=== PATIENT | female | born 1960 ===

== ENCOUNTER 2025-03-05 16:36 | Inpatient (IN) | payer MEDICAID ==
[~2025-03-05] VITALS: Ht 152.4 cm; Wt 72.2 kg
--- NOTE | 2025-03-05 17:10 | ED.PDOC ---
GI ASSESSMENT HPI Comments 64-year-old female with a history of hypertension, diabetes, cerebral stenosis, CAD status post PTCA presenting complaining of diffuse abdominal pain, greatest in the lower abdomen, progressively worsening over the past 2 months. Patient states she came to the ER today because she could not no longer tolerate the pain, which she describes as pressure-like with associated migrating sharp pains. She denies any fever, nausea, vomiting, diarrhea, constipation or dysuria. States the pain is not associated with food intake. Chief Complaint: Abdominal Pain Time Seen by MD: 16:44 Allergies: Coded Allergies: NO KNOWN ALLERGIES (Unverified , 03/05/25) Mode of Arrival: Ambulatory Past Medical History PAST MEDICAL HISTORY: CAD, DM, HTN Past Medical History (Other): Cerebral stenosis Surgical History: Appendectomy, Hysterectomy, PTCA ASSISTED LIVING ASSOCIATE History: No Pertinent ASSISTED LIVING ASSOCIATE History Family History Family History: Reviewed,noncontributory to illness Social History Smoker: Non-Smoker Alcohol: Denies ETOH Use Drugs: Denies Drug Use Lives In: Home Integumetry: reports: rash All Other Systems: Reviewed and Negative (Comprehensive systems review obtained and negative except for what is stated in the HPI.) Physical Exam General Appearance: Mild Distress, Obese HEENT: Other (Pupils and face symmetric. Moist mucous membranes.) Neck: Full Range of Motion, Normal Inspection Respiratory: Lungs Clear, No Accessory Muscle Use, No Respiratory Distress, Normal Breath Sounds Cardiovascular: No Edema, No JVD, Regular Rate/Rhythm Breast Exam: Deferred Gastrointestinal: Diffuse, Distended (Mild), Soft, Tenderness Genitalia: Deferred Pelvic: Deferred Rectal: Deferred Extremities: Normal inspection, Normal range of motion, Non-tender, No pedal e jeannie Neurologic: Alert (Oriented x4), Normal Affect, Normal Mood, Other (Ambulatory) Cerebellar Function: NOT DONE Reflexes: NOT DONE Skin: Dry, Warm Lymphatic: NOT DONE Was a procedure done? Was a procedure done?: No GI differential Dx Differential Diagnosis: Bowel Obstruction, Constipation, Diverticular disease, Gastritis/PUD, Gastroenteritis, Inflammatory BD, Ischemic Bowel, Pancreatitis, UTI, Diabetes/ DKA, Food Poisoning, Bacterial, Viral, Impaction, Stress Ulcer, Other (Gastroparesis, among others) X-Ray, Labs, Meds, VS Vital Signs Date Time Temp Pulse Resp B/P (MAP) Pulse Ox O2 Delivery O2 Flow Rate FiO2 03/05/25 18:23 92 18 207/101 03/05/25 18:15 18 98 Room Air* 0 21 03/05/25 18:15 98.6 92 17 207/101 (136) 96 98.6 03/05/25 16:38 98.7 98 17 197/96 98 98.7 Lab Test 03/05/25 17:20 03/05/25 17:12 Range/Units Urine Color Light-yellow Yellow Urine Clarity Clear Clear Urine pH 5.5 5.0-9.0 Urine Specific [place] 1.034 1.001-1.035 Urine Protein 1+ H Negative Urine Ketones Negative Negative Urine Blood 1+ H Negative /uL Urine Nitrite Negative Negative Urine Bilirubin Negative Negative Urine Urobilinogen Normal Negative mg/dL Urine Leukocyte Esterase 2+ Negative /uL Urine RBC 9 0 - 4 /hpf Urine Microscopic WBC 10 H 0-5 /HPF Urine Squamous Epithelial Cells Few <5 /hpf Urine Bacteria Few H None Seen /hpf Urine Glucose 4+ H Normal mg/dL White Blood Count 10.6 4.4-10.8 10^3/uL Red Blood Count 5.42 H 4.0-5.20 10^6/uL Hemoglobin 17.2 H 12.2-16.2 g/dL Hematocrit 50.1 H 36.0-46.0 % Mean Corpuscular Volume 92.5 80.0-100.0 fL Mean Corpuscular Hemoglobin 31.8 28.0-32.0 pg Mean Corpuscular Hemoglobin Concent 34.3 32.0-36.0 g/dL Red Cell Distribution Width 13.4 11.8-14.3 % Platelet Count 277 140-450 10^3/uL Mean Platelet Volume 9.8 6.9-10.8 fL Neutrophils (%) (Auto) 65.9 37.0-80.0 % Lymphocytes (%) (Auto) 26.0 10.0-50.0 % Monocytes (%) (Auto) 6.6 0.0-12.0 % Eosinophils (%) (Auto) 1.0 0.0-7.0 % Basophils (%) (Auto) 0.5 0.0-2.0 % Neutrophils # (Auto) 7.0 1.6-8.6 10 ^3/uL Lymphocytes # (Auto) 2.8 0.4-5.4 10 ^3/uL Monocytes # (Auto) 0.7 0-1.3 10 ^3/uL Eosinophils # (Auto) 0.1 0-0.8 10 ^3/uL Basophils # (Auto) 0.1 0-0.2 10 ^3/uL Nucleated Red Blood Cells 0.1 % Sodium Level 136 136-145 mmol/L Potassium Level 4.5 3.5-5.1 mmol/L Chloride Level 99 98-107 mmol/L Carbon Dioxide Level 25 20-31 mmol/L Anion Gap 12 5-15 Blood Urea Nitrogen 12 9-23 mg/dL Creatinine 1.16 H 0.550-1.02 mg/dL Glomerular Filtration Rate Calc 52 >90 mL/min BUN/Creatinine Ratio 10.3 10.0-20.0 Serum Glucose 480 *H 74-106 mg/dL Lactic Acid Level 4.2 *H 0.4-2.0 mmol/L Calcium Level 9.7 8.7-10.4 mg/dL Total Bilirubin 0.5 0.2-1.0 mg/dL Aspartate Amino Transferase (AST) 21 13-40 U/L Alanine Aminotransferase (ALT) 18 7-40 U/L Alkaline Phosphatase 132 H 46-116 U/L Troponin I High Sensitivity 11 </=34 ng/L Total Protein 7.3 5.7-8.2 g/dL Albumin 4.6 3.2-4.8 g/dL Lipase 48 12-53 U/L Current Medications Medications (Trade) Dose Ordered Sig/Maco Route Start Time Stop Time Status Last Admin Sodium Chloride 1,000 ml @ 1,000 mls/hr Q1H ONCE IV 03/05/25 17:00 03/05/25 17:59 DC 03/05/25 18:23 Ondansetron HCl (Zofran) 4 mg ONCE ONCE IV 03/05/25 17:00 03/05/25 17:03 DC 03/05/25 18:22 Morphine Sulfate 4 mg ONCE ONCE IV 03/05/25 17:00 03/05/25 17:03 DC 03/05/25 18:23 Pantoprazole Sodium (Protonix) 40 mg ONCE ONCE IV 03/05/25 17:00 03/05/25 17:03 DC 03/05/25 18:21 PROCEDURE(s): ABPL - CT AB PEL WO CON-NO ORAL OR IV REASON: diffuse abd pain ORDER NUMBER(s): [id number], ACCESSION NUMBER(s): [id number] Exam: CT CT AB PEL WO CON-NO ORAL OR IV History: diffuse abd pain Comparison Study: None TECHNIQUE: Multidetector CT of the abdomen was performed from lung bases to pubic symphysis. Imaging was performed without IV contrast. Axial, coronal and sagittal multiplanar reformats were obtained from the axial data set by the technologist. Radiation Dose Information: CT Dose: CTDI volume is 6.2 mGy. Dose-length product is 306.83 mGy*cm FINDINGS: Evaluation of solid organs is limited due to lack of intravenous contrast use. Findings: Lung Bases: No acute or significant lung base finding. Normal heart size. No pleural or pericardial effusion. Liver: The liver is normal in size. No focal lesions. Gallbladder and Biliary Tree: Unremarkable Spleen: Unremarkable Pancreas: The pancreas is grossly normal in appearance. Adrenal Glands: Unremarkable Kidneys: Kidneys are grossly normal without hydronephrosis. Bilateral renal calcifications appear to be vascular. There is no hydronephrosis. Bladder: Grossly unremarkable for degree of distention. Bowel: The stomach is grossly normal in appearance. Small bowel is normal in caliber and distribution. Mucosal thickening is noted of the right and transverse colon correlate for possible signs and symptoms of the colitis. The appendix is not visualized; however, no secondary findings of acute appendicitis identified. Ascites: Absent Lymphadenopathy: No mesenteric, retroperitoneal or periportal lymphadenopathy. Abdominal Wall and Mesentery: Unremarkable. Vasculature: The visualized abdominal aorta is normal in size and caliber. Evaluation of abdominal and pelvic vessels is limited due to lack of intravenous contrast. Pelvic Organs: Unremarkable Musculoskeletal: No aggressive focal bony lesions, acute fractures or dislocation. Soft tissues: Unremarkable IMPRESSION: 1. Mucosal thickening of the right and transverse colon. Correlate clinically for signs and symptoms of colitis 2. Bilateral renal calculi without hydronephrosis. Both vascular and parenchymal calcifications are in the differential. Radiation optimization: All CT scans at this facility use at least one of these dose optimization techniques: automated exposure control mA and/or kV adjustment per patient size (includes targeted exams where dose is matched to clinical indication) or iterative reconstruction. X-Ray, Labs, Meds, VS Comment 64-year-old female with a history of hypertension, diabetes and CAD complaining of diffuse abdominal pain, greatest in the lower abdomen Vitals remarkable for BP 197/96 Exam remarkable for diffuse abdominal tenderness to palpation with mild distention Rhythm strip independently interpreted by me: Sinus rhythm, rate 88, no ectopy. CT abdomen and pelvis IMPRESSION: 1. Mucosal thickening of the right and transverse colon. Correlate clinically for signs and symptoms of colitis 2. Bilateral renal calculi without hydronephrosis. Both vascular and parenchymal calcifications are in the differential. CBC, CMP, lipase, troponin, UA reviewed and remarkable for creatinine 1.16, glucose 480, normal anion gap, lactate 4.2, UA abnormal consistent with UTI Patient treated with the following in the ED: 2 L 0.9 normal saline IV bolus, morphine 4 mg IV, Zofran 4 mg IV, Protonix 40 mg IV, Zosyn 4.5 g IV, vancomycin 1 g IV, regular insulin 6 units IV, hydralazine 5 mg IV On re-evaluation, pain has partially improved. Blood pressure still elevated. Plan is to admit the patient for IV antibiotics, blood glucose control and blood pressure control. Time of 1ST Reevaluation: 18:00 Reevaluation 1ST: Unchanged Patient Education/Counseling: Diagnosis, Treatment, Need For Follow Up Family Education/Counseling: No Family Present SEPSIS Sepsis Screen Date sepsis recognized/suspect: Mar 05, 2025 Time Sepsis recognized/suspect: 1637 Recent Procedure: No On Antibiotic Therapy: No Respiratory Rate >20: No Heart Rate >90: No Temp<36 C (96.8 F) or >38.3 C: No SBP <90 or MAP <65 mmHG: No New Acute Mental Status Change: No Is the patient on CPAP, BIPAP,: No Physician Orders Ct Ab Pel Wo Con-No Oral Or Iv (03/05/25 17:00) Blood Culture (03/05/25 17:00) Electrocardigram (03/05/25 17:00) Sodium Chloride 0.9% (03/05/25 18:45) Piperacillin-Tazo 4.5gm (Zosyn 4.5gm/100 (03/05/25 18:45) Vancomycin 1gm/250ml Kit (03/05/25 18:45) Insulin R (Human) (Insulin R) (03/05/25 18:45) Hydralazine Injection (Apresoline Inject (03/05/25 18:45) Vital Signs Date Time Temp Pulse Resp B/P (MAP) Pulse Ox O2 Delivery O2 Flow Rate FiO2 03/05/25 18:23 92 18 207/101 03/05/25 18:15 18 98 Room Air* 0 21 03/05/25 18:15 98.6 92 17 207/101 (136) 96 98.6 03/05/25 16:38 98.7 98 17 197/96 98 98.7 Laboratory Tests Test 03/05/25 17:12 Lactic Acid Level 4.2 mmol/L (0.4-2.0) *H White Blood Count 10.6 10^3/uL (4.4-10.8) Medications Medications Dose Ordered Sig/Maco Route Start Time Stop Time Status Last Admin Dose Admin Morphine Sulfate 4 mg ONCE ONCE IV 03/05/25 17:00 03/05/25 17:03 DC 03/05/25 18:23 Ondansetron HCl 4 mg ONCE ONCE IV 03/05/25 17:00 03/05/25 17:03 DC 03/05/25 18:22 Pantoprazole Sodium 40 mg ONCE ONCE IV 03/05/25 17:00 03/05/25 17:03 DC 03/05/25 18:21 Sodium Chloride 1,000 ml @ 1,000 mls/hr Q1H ONCE IV 03/05/25 17:00 03/05/25 17:59 DC 03/05/25 18:23 Reassessment Post Fluid SEPSIS FOCUS EXAM(REASSESSMENT Sepsis reassessment focused exam completed. Date: 03/05/25 Time 18:39 Departure 1 Departure Time of Disposition: 18:30 Impression: Primary Impression: Colitis Additional Impressions: UTI (urinary tract infection) Sepsis Hyperglycemia Hypertensive urgency Disposition: 09 ADMITTED INPATIENT Admit to: Tele Condition: Guarded Critical Care Note Critical Care Time?: Yes (45 min-critical care time only) Critical care comment: Critical care time including multiple bedside re-evaluations, review of lab and imaging studies, and discussion of the case with the admitting provider. Patient is high risk for metabolic and/or hemodynamic decompensation. Stability Stability form required: No Heart Score Heart Score: Heart Score Response (Comments) Value History N/A 0 EKG N/A 0 Age N/A 0 Risk Factors N/A 0 Troponin N/A 0 Total 0 AU NATHAN BOYLE MD Mar 05, 2025 17:10
[2025-03-05 17:49] LABS: Hematocrit 50.1 % (36.0-46.0); Hemoglobin 17.2 g/dL (12.2-16.2); Mean Corpuscular Hemoglobin 31.8 pg (28.0-32.0); Mean Corpuscular Volume 92.5 fL (80.0-100.0); Nucleated Red Blood Cells % 0.1 %
--- NOTE | 2025-03-05 17:54 | DVH ---
Exam: CT CT AB PEL WO CON-NO ORAL OR IV History: diffuse abd pain Comparison Study: None TECHNIQUE: Multidetector CT of the abdomen was performed from lung bases to pubic symphysis. Imaging was performed without IV contrast. Axial, coronal and sagittal multiplanar reformats were obtained fr om the axial data set by the technologist. Radiation Dose Information: CT Dose: CTDI volume is 6.2 mGy. Dose-length product is 306.83 mGy*cm FINDINGS: Evaluation of solid organs is limited due to lack of intravenous contrast use. Findings: Lung Bases: No acute or significant lung base finding. Normal heart size. No pleural or pericardial effusion. Liver: The liver is normal in size. No focal lesions. Gallbladder and Biliary Tree: Unremarkable Spleen: Unremarkable Pancreas: The pancreas is grossly normal in appearance. Adrenal Glands: Unremarkable Kidneys: Kidneys are grossly normal without hydronephrosis. Bilateral renal calcifications appear to be vascular. There is no hydronephrosis. Bladder: Grossly unremarkable for degree of distention. Bowel: The stomach is grossly normal in appearance. Small bowel is normal in caliber and distribution . Mucosal thickening is noted of the right and transverse colon correlate for possible signs and symp toms of the colitis. The appendix is not visualized; however, no secondary findings of acute appendi citis identified. Ascites: Absent Lymphadenopathy: No mesenteric, retroperitoneal or periportal lymphadenopathy. Abdominal Wall and Mesentery: Unremarkable. Vasculature: The visualized abdominal aorta is normal in size and caliber. Evaluation of abdominal a nd pelvic vessels is limited due to lack of intravenous contrast. Pelvic Organs: Unremarkable Musculoskeletal: No aggressive focal bony lesions, acute fractures or dislocation. Soft tissues: Unremarkable IMPRESSION: 1. Mucosal thickening of the right and transverse colon. Correlate clinically for signs and symptoms of colitis 2. Bilateral renal calculi without hydronephrosis. Both vascular and parenchymal calcifications are i n the differential. Radiation optimization: All CT scans at this facility use at least one of these dose optimization shane hniques: automated exposure control mA and/or kV adjustment per patient size (includes targeted exam s where dose is matched to clinical indication) or iterative reconstruction.
[2025-03-05 18:08] LABS: Alanine Aminotransferase 18 U/L (7-40); Albumin 4.6 g/dL (3.2-4.8); Anion Gap 12 (5-15); BUN/Creatinine Ratio 10.3 (10.0-20.0); Bilirubin, Total 0.5 mg/dL (0.2-1.0); Blood Urea Nitrogen 12 mg/dL (9-23); Calcium 9.7 mg/dL (8.7-10.4); Carbon Dioxide 25 mmol/L (20-31); Chloride 99 mmol/L (98-107); Lipase 48 U/L (12-53); Potassium 4.5 mmol/L (3.5-5.1); Total Protein 7.3 g/dL (5.7-8.2)
[2025-03-05 18:10] LABS: Alkaline Phosphatase 132 U/L (46-116); Sodium 136 mmol/L (136-145)
[2025-03-05 18:11] LABS: Glucose 480 mg/dL (74-106); Lactic Acid w/Reflex 4.2 mmol/L (0.4-2.0)
[2025-03-05 18:15] VITALS: RESP 18; O2SAT 98
[2025-03-05] MEDS: PANTOPRAZOLE 40 MG/10 ML VIAL INJ IV ONE (18:21)
[2025-03-05] MEDS: ONDANSETRON HCL 4 MG/2 ML VIAL IV ONE (18:22)
[2025-03-05 18:23] LABS: Urine Protein, UAD 1+ (Negative)
[2025-03-05] MEDS: MORPHINE SULFATE 4 MG/ML SYR/VIAL IV ONE (18:23)
[2025-03-05] MEDS: SODIUM CHLORIDE 0.9% 1,000 ML IV ONE ×2 (18:23→19:43)
[2025-03-05] MEDS: hydrALAZINE HCL 20 MG/ML VL IV ONE ×2 (19:08→23:13)
[2025-03-05] MEDS: InsuLIN REG 1unit/0.01ml Soln (100units/ml) IV ONE (19:42)
[2025-03-05] MEDS: PIPERACILLIN-TAZO 4.5GM 100 ML IV ONE (19:43)
[2025-03-05] MEDS: HYDROcodone-ACET 5/325MG TAB PO PRN (23:10)
[2025-03-05] MEDS: VANCOMYCIN 1GM/250ML KIT 250 ML IV ONE (23:13)
[2025-03-06] MEDS ORDERED: DEXTROSE (50%) 50ML SYRG IV PRN ×2 (00:45→15:45)
[2025-03-06] MEDS: INSULIN LANTUS (GLARGINE) 1 /0.01ml (100units/ml) SC SCH (00:59)
[2025-03-06] MEDS: hydrALAZINE HCL 20 MG/ML VL IV SCH ×2 (02:27→06:30)
[2025-03-06] MEDS ORDERED: TICA90TA PO (03:01)
[2025-03-06] MEDS ORDERED: ASPI-325 PO (03:01)
--- NOTE | 2025-03-06 03:03 | DVHHPRES ---
History of Present Illness Resident Creating Document: YUMIKO OSBORN RESIDENT History of Present Illness SHELLIE VAZQUEZ Is a 64-year-old female with past medical history of hypertension, type 2 diabetes mellitus, CAD status post PTCA 1 year ago, multiple CVAs 2 years ago, cerebral stenosis and skin cancer came to the ED with chief complaints of diffuse abdominal pain more in the lower right side which is 8/10 in intensity, sharp, stabbing, constant, no relieving or aggravating factors, and radiating to the back,. Patient denies any nausea, vomiting, diarrhea, constipation, blood in the stool, fever, chills, dysuria, hematuria. On arrival patient is hypertensive, urinalysis is positive for UTI. Patient also states having a yeast infection since [address] Abdomen shows Mucosal thickening of the right and transverse colon. Correlate clinically for signs and symptoms of colitis. Bilateral renal calculi without hydronephrosis. Patient denies any sick conta cts, recent travel. Past surgical history: surgery for cerebral stenosis, appendicectomy, hysterectomy, PTCA, Skin cancer Lazer therapy Family history: Reviewed noncontributory Personal history: smokes 4 cigarettes per day started 3 months ago, drinks occasionally, smokes weed 2 times a week Lives with: family PCP:Dr. Guevara Review of Systems Constitutional: No: Fever, Chills, Sweats, Weakness, Malaise, Other Eyes: No: Pain, Vision change, Conjunctivae inflammation, Eyelid inflammation, Other, Redness ENT: No: Ear pain, Ear discharge, Nose pain, Nose discharge, Nose congestion, Mouth pain, Mouth swelling, Throat pain, Throat swelling, Other Respiratory: No: Cough, Dry, Shortness of breath, SOB with excertion, Wheezing, Hemoptysis, Pleuritic Pain, Sputum, Wheezing, Other Cardiovascular: No: Chest Pain, Palpitations, Orthopnea, Paroxysmal Noc. Dyspnea, Edema, Lt Headedness, Other Gastrointestinal: Abdominal Pain; No: Nausea, Vomiting, Diarrhea, Constipation, Melena, Hematochezia, Other Genitourinary: No Dysuria, No Frequency, No Incontinence, No Hematuria, No Retention, No Other Musculoskeletal: No: other, neck pain, shoulder pain, arm pain, back pain, hand pain, leg pain, foot pain Skin: No: Rash, Lesions, Jaundice, Bruising, Other Neurological: No: Weakness, Numbness, Incoordination, Change in speech, Confusion, Seizures, Other Allergies: Coded Allergies: NO KNOWN ALLERGIES (Unverified , 03/05/25) Medications Current Medications Medications Dose Ordered Sig/Maco Route Start Time Stop Time Status Last Admin Dose Admin Acetaminophen/ Hydrocodone Bitart 1 tab Q4HP PRN PO 03/05/25 22:30 03/05/25 23:10 1 TAB Hydralazine HCl 10 mg Q4H IV 03/06/25 02:00 03/06/25 02:27 10 MG Ceftriaxone Sodium 50 ml @ 100 mls/hr DAILY@09 IV 03/06/25 09:00 Insulin Glargine 20 units HS SC 03/06/25 00:45 03/06/25 00:59 20 UNITS Diagnostic Test (Pha) 1 strip ACHS 03/06/25 07:00 Insulin Human Regular HS SC 03/06/25 22:00 Insulin Human Regular AC SC 03/06/25 07:00 Dextrose 50 ml UD PRN IV 03/06/25 00:45 Exam Vital Signs Vital Signs Date Time Temp Pulse Resp B/P (MAP) Pulse Ox O2 Delivery O2 Flow Rate FiO2 03/06/25 02:27 176/69 03/05/25 23:20 88 17 97 03/05/25 18:15 Room Air* 0 21 03/05/25 18:15 98.6 98.6 Exam General: Patient alert and oriented in person, place and time. Patient following commands. In moderate distress HEENT: Normocephalic, atraumatic, moist mucous membranes Respiratory/pulmonary: Clear lungs bilaterally, vesicular murmurs present in almost all lung quiroz, no associated crackles or wheezes. Cardiovascular: Normal heart sounds S1 and S2 with no associated murmurs Erythema under bilateral breasts Abdomen: Diffuse abdominal tenderness more on right lower quadrant. Erythema over suprapubic area Extremities: There is no peripheral edema present at the lower extremities. Peripheral Pulses: 3+ Radial (R). 3+ Radial (L). 3+ Dorsalis pedis (R). 3+ Dorsalis pedis(L) Skin: No rashes or pruritus, there is no sacral edema present at this time. Neurological: Intact cranial nerves with no focal neurologic deficits Psych, mood: Normal psych, mood Labs/Xrays Labs Test 03/05/25 19:34 03/05/25 19:01 03/05/25 17:20 03/05/25 17:12 Range/Units POC Glucose 487 *H 70-106 mg/dl Lactic Acid Level 3.2 *H 0.4-2.0 mmol/L Urine Color Light-yellow Yellow Urine Clarity Clear Clear Urine pH 5.5 5.0-9.0 Urine Specific [place] 1.034 1.001-1.035 Urine Protein 1+ H Negative Urine Ketones Negative Negative Urine Blood 1+ H Negative /uL Urine Nitrite Negative Negative Urine Bilirubin Negative Negative Urine Urobilinogen Normal Negative mg/dL Urine Leukocyte Esterase 2+ Negative /uL Urine RBC 9 0 - 4 /hpf Urine Microscopic WBC 10 H 0-5 /HPF Urine Squamous Epithelial Cells Few <5 /hpf Urine Bacteria Few H None Seen /hpf Urine Glucose 4+ H Normal mg/dL White Blood Count 10.6 4.4-10.8 10^3/uL Red Blood Count 5.42 H 4.0-5.20 10^6/uL Hemoglobin 17.2 H 12.2-16.2 g/dL Hematocrit 50.1 H 36.0-46.0 % Mean Corpuscular Volume 92.5 80.0-100.0 fL Mean Corpuscular Hemoglobin 31.8 28.0-32.0 pg Mean Corpuscular Hemoglobin Concent 34.3 32.0-36.0 g/dL Red Cell Distribution Width 13.4 11.8-14.3 % Platelet Count 277 140-450 10^3/uL Mean Platelet Volume 9.8 6.9-10.8 fL Neutrophils (%) (Auto) 65.9 37.0-80.0 % Lymphocytes (%) (Auto) 26.0 10.0-50.0 % Monocytes (%) (Auto) 6.6 0.0-12.0 % Eosinophils (%) (Auto) 1.0 0.0-7.0 % Basophils (%) (Auto) 0.5 0.0-2.0 % Neutrophils # (Auto) 7.0 1.6-8.6 10 ^3/uL Lymphocytes # (Auto) 2.8 0.4-5.4 10 ^3/uL Monocytes # (Auto) 0.7 0-1.3 10 ^3/uL Eosinophils # (Auto) 0.1 0-0.8 10 ^3/uL Basophils # (Auto) 0.1 0-0.2 10 ^3/uL Nucleated Red Blood Cells 0.1 % Sodium Level 136 136-145 mmol/L Potassium Level 4.5 3.5-5.1 mmol/L Chloride Level 99 98-107 mmol/L Carbon Dioxide Level 25 20-31 mmol/L Anion Gap 12 5-15 Blood Urea Nitrogen 12 9-23 mg/dL Creatinine 1.16 H 0.550-1.02 mg/dL Glomerular Filtration Rate Calc 52 >90 mL/min BUN/Creatinine Ratio 10.3 10.0-20.0 Serum Glucose 480 *H 74-106 mg/dL Hemoglobin A1c 12.0 H <5.7 % A1C Serum Osmolality 311 H 278-298 mOsm/kg Calcium Level 9.7 8.7-10.4 mg/dL Total Bilirubin 0.5 0.2-1.0 mg/dL Aspartate Amino Transferase (AST) 21 13-40 U/L Alanine Aminotransferase (ALT) 18 7-40 U/L Alkaline Phosphatase 132 H 46-116 U/L Troponin I High Sensitivity 11 </=34 ng/L Total Protein 7.3 5.7-8.2 g/dL Albumin 4.6 3.2-4.8 g/dL Lipase 48 12-53 U/L SEPSIS Sepsis Screen Date sepsis recognized/suspect: Mar 05, 2025 Time Sepsis recognized/suspect: 8 Recent Procedure: No On Antibiotic Therapy: No Respiratory Rate >20: No Heart Rate >90: No Temp<36 C (96.8 F) or >38.3 C: No SBP <90 or MAP <65 mmHG: No New Acute Mental Status Change: No Is the patient on CPAP, BIPAP,: No Physician Orders Admit (03/05/25 22:24) Allergies (03/05/25 22:24) Code Status (03/05/25 22:24) Hydrocodone-Acet 5/325mg Tab (Leivasy 32 (03/05/25 22:30) Complete Blood Count (03/06/25 04:00) Comprehensive Metabolic Panel (03/06/25 04:00) Condition: Serious (03/05/25 22:24) Bedrest With Bathroom Privileg (03/05/25 22:24) Oxygen By Nasal Cannula (03/05/25 22:24) Stat Ekg For Chest Pain (03/05/25 22:24) Notify Md Of Changes From Base (03/05/25 22:24) Nailer Operator For 24 Hours (03/05/25 22:24) Emergency Dysrhythmia Protocol (03/05/25 22:24) Rhythm Strips Once Every Shift (03/05/25 22:24) Hydralazine Injection (Apresoline Inject (03/06/25 02:00) Ceftriaxone 1gm/50ml D5w (Rocephin) (03/06/25 09:00) Insulin Lantus (Glargine) (Lantus) (03/06/25 00:45) Cardiac Diet-2gna,Lofat,Lochol (03/06/25 Breakfast) Glucose Blood (Accu-Chek Comfort Curve T (03/06/25 07:00) Insulin R (Human) (Insulin R) (03/06/25 22:00) Insulin R (Human) (Insulin R) (03/06/25 07:00) Dextrose 50% Syringe (03/06/25 00:45) Vital Signs Date Time Temp Pulse Resp B/P (MAP) Pulse Ox O2 Delivery O2 Flow Rate FiO2 03/06/25 02:27 176/69 03/05/25 23:20 88 17 186/74 (111) 97 03/05/25 23:13 186/74 03/05/25 23:13 186/74 03/05/25 19:08 217/128 03/05/25 19:03 92 16 217/128 Laboratory Tests Test 03/05/25 17:12 03/05/25 19:01 Lactic Acid Level 4.2 mmol/L (0.4-2.0) *H 3.2 mmol/L (0.4-2.0) *H White Blood Count 10.6 10^3/uL (4.4-10.8) Medications Medications Dose Ordered Sig/Maco Route Start Time Stop Time Status Last Admin Dose Admin Acetaminophen/ Hydrocodone Bitart 1 tab Q4HP PRN PO 03/05/25 22:30 03/05/25 23:10 1 TAB Ceftriaxone Sodium 50 ml @ 100 mls/hr ONCE ONCE IV 03/05/25 23:00 03/05/25 23:29 DC 03/06/25 01:24 100 MLS/HR Hydralazine HCl 5 mg ONCE ONCE IV 03/05/25 18:45 03/05/25 18:57 DC 03/05/25 19:08 5 MG Hydralazine HCl 10 mg ONCE ONCE IV 03/05/25 22:30 03/05/25 22:34 DC 03/05/25 23:13 10 MG Hydralazine HCl 10 mg Q4H IV 03/06/25 02:00 03/06/25 02:27 10 MG Insulin Glargine 20 units HS SC 03/06/25 00:45 03/06/25 00:59 20 UNITS Insulin Human Regular 6 units ONCE ONCE IV 03/05/25 18:45 03/05/25 18:57 DC 03/05/25 19:42 6 UNITS Morphine Sulfate 4 mg ONCE ONCE IV 03/05/25 17:00 03/05/25 17:03 DC 03/05/25 18:23 4 MG Nifedipine 60 mg ONCE ONCE PO 03/05/25 22:30 03/05/25 22:34 DC 03/05/25 23:13 60 MG Ondansetron HCl 4 mg ONCE ONCE IV 03/05/25 17:00 03/05/25 17:03 DC 03/05/25 18:22 4 MG Pantoprazole Sodium 40 mg ONCE ONCE IV 03/05/25 17:00 03/05/25 17:03 DC 03/05/25 18:21 40 MG Piperacillin Sod/ Tazobactam Sod 100 ml @ 100 mls/hr ONCE ONCE IV 03/05/25 18:45 03/05/25 19:44 DC 03/05/25 19:43 100 MLS/HR Sodium Chloride 1,000 ml @ 1,000 mls/hr Q1H ONCE IV 03/05/25 17:00 03/05/25 17:59 DC 03/05/25 18:23 1,000 MLS/HR Sodium Chloride 1,000 ml @ 1,000 mls/hr Q1H ONCE IV 03/05/25 18:45 03/05/25 19:44 DC 03/05/25 19:43 1,000 MLS/HR Vancomycin HCl 250 ml @ 250 mls/hr ONCE ONCE IV 03/05/25 19:45 03/05/25 20:44 DC 03/05/25 23:13 250 MLS/HR Assessment/Plan Assessment/Plan # Intractable abdominal pain possibly due to colitis # Transverse Colitis # Bilateral renal Caliculi - CT abdomen shows Mucosal thickening of the right and transverse colon. Correlate clinically for signs and symptoms of colitis, Bilateral renal calculi without hydronephrosis. - started on IV metronidazole 500 mg - Ordered stool occult blood, WBC, C.Diff - Recommenced Outpatient colonoscopy # acute complicated UTI - IV fluids - urinalysis positive - IV ceftriaxone given - Urine culture sent # lactic acidosis : 4.2 - Check lactic acid # hypertensive urgency/ emergency - hydralazine 10mg q.6 - nifedipine 60 mg - check blood pressure, slowly decrease # HHS # uncontrolled diabetes mellitus [id number] - Lantus 20 -moderate insulin sliding scale # DALE vs CKD 3a - Avoid Nsaids # yeast infection - Nystatin powder # history of CAD: Continue home meds # history of CVA: Continue home meds # history of Osteoarthritis # history of skin cancer - follow-up outpatient # polysubstance abuse disorder - patient counseled on cessation of smoking, marijuana use, alcohol use for 13 minutes PPI PPX: IV Famotidine 20 mg DVT PPX: not indicated Clear liquid diet Goals of care addressed with the patient for more than 37 minutes: Full code status Case discussed with Dr. Hitchcock , patient and nurse Plan discussed with: Patient, Other (RN) My Orders Orders - YUMIKO OSBORN RESIDENT Procedure Category Date Status Time Admit ADMIT 03/05/25 Transmitted 22:24 Allergies NANCY 03/05/25 In Process 22:24 Code Status CODE 03/05/25 Transmitted 22:24 Hydrocodone-Acet PHA 03/05/25 In Process 5/325mg Tab (Leivasy 22:30 Complete Blood Count LAB 03/06/25 Logged 04:00 Comprehensive LAB 03/06/25 Logged Metabolic Panel 04:00 Condition: Serious NANCY 03/05/25 In Process 22:24 Bedrest With Bathroom NANCY 03/05/25 In Process Privileg 22:24 Oxygen By Nasal RT 03/05/25 Transmitted Cannula 22:24 Stat Ekg For Chest NANCY 03/05/25 In Process Pain 22:24 Notify Md Of Changes NANCY 03/05/25 In Process From Base 22:24 Nailer Operator For NANCY 03/05/25 In Process 24 Hours 22:24 Emergency Dysrhythmia NANCY 03/05/25 In Process Protocol 22:24 Rhythm Strips Once NANCY 03/05/25 In Process Every Shift 22:24 Hydralazine Injection PHA 03/06/25 In Process (Apresoline Inject 02:00 Ceftriaxone 1gm/50ml PHA 03/06/25 In Process D5w (Rocephin) 09:00 Insulin Lantus PHA 03/06/25 In Process (Glargine) (Lantus) 00:45 Cardiac DIET 03/06/25 Transmitted Diet-2gna,Lofat,Lochol Breakfast Glucose Blood PHA 03/06/25 In Process (Accu-Chek Comfort 07:00 Insulin R (Human) PHA 03/06/25 In Process (Insulin R) 22:00 Insulin R (Human) PHA 03/06/25 In Process (Insulin R) 07:00 Dextrose 50% Syringe PHA 03/06/25 In Process 00:45 Date of Service: Mar 06, 2025 Billing Provider: FREDI HITCHCOCK MD Common Visit Codes: 41295-[id number] INP/OBS CARE (HIGH) Secondary Visit Codes: 13250-[id number] CARE PLAN 30 MINUTES YUMIKO OSBORN RESIDENT Mar 06, 2025 03:03
[2025-03-06] MEDS: LACTATED RINGER'S 1,000 ML IV SCH (04:15)
[2025-03-06] MEDS: NYSTATIN TOPICAL POWDER 15GM TOP ONE (04:15)
[2025-03-06] MEDS: ATORVASTATIN 20 MG TAB PO ONE (04:30)
[2025-03-06] MEDS: FAMOTIDINE (10MG/ML) 2ML VL IV ONE (04:30)
[2025-03-06] MEDS: LACTATED RINGER'S 500 ML IV ONE (06:17)
[2025-03-06] MEDS: ACCU-CHEK COMFORT CURVE STRIP VI SCH ×2 (07:00→17:07)
[2025-03-06 07:30] LABS: Hematocrit 45.9 % (36.0-46.0); Hemoglobin 15.7 g/dL (12.2-16.2); Mean Corpuscular Hemoglobin 31.4 pg (28.0-32.0); Mean Corpuscular Volume 92.1 fL (80.0-100.0); Nucleated Red Blood Cells % 0.0 %
[2025-03-06 07:49] LABS: Alanine Aminotransferase 14 U/L (7-40); Albumin 4.3 g/dL (3.2-4.8); Alkaline Phosphatase 103 U/L (46-116); Anion Gap 12 (5-15); BUN/Creatinine Ratio 6.8 (10.0-20.0); Bilirubin, Total 0.5 mg/dL (0.2-1.0); Calcium 8.9 mg/dL (8.7-10.4); Carbon Dioxide 21 mmol/L (20-31); Chloride 103 mmol/L (98-107); Potassium 3.6 mmol/L (3.5-5.1); Sodium 136 mmol/L (136-145); Total Protein 7.4 g/dL (5.7-8.2)
[2025-03-06 07:50] LABS: Blood Urea Nitrogen 9 mg/dL (9-23); Glucose 319 mg/dL (74-106); Lactic Acid w/Reflex 2.5 mmol/L (0.4-2.0)
--- NOTE | 2025-03-06 10:30 | ECG ---
[facility] Test Date: 2025-03-06 Test Time: 09:37:23 Pat Name: SHELLIE VAZQUEZ Department: ED Room: 0294T Gender: F Architect: yury : 1960 Requested By: NATHAN BOYLE Order Number: [id number] Reading MD: Elio Patel Measurements Intervals [place] Rate: 97 P: 76 ND: 144 QRS: 77 QRSD: 79 T: 65 QT: 359 QTc: 456 Interpretive Statements Fast sinus arrhythmia Anteroseptal infarct, old Electronically Signed On 03-08-2025 17:00:55 PDT by Elio Patel Please click the below link to view image of tracing.
[2025-03-06] MEDS: InsuLIN REG 1unit/0.01ml Soln (100units/ml) SC SCH (11:30)
--- NOTE | 2025-03-06 13:16 | DVHPNRES ---
Progress Note Objective vital signs Vital Sign Date Time Temp Pulse Resp B/P (MAP) Pulse Ox O2 Delivery O2 Flow Rate FiO2 03/06/25 09:37 97 03/06/25 08:10 Room Air* 0 21 03/06/25 08:09 98.3 17 139/52 (81) 96 98.3 medications Current Medications Medications Dose Ordered Sig/Maco Route Start Time Stop Time Status Last Admin Dose Admin Acetaminophen/ Hydrocodone Bitart 1 tab Q4HP PRN PO 03/05/25 22:30 03/06/25 11:17 1 TAB Ceftriaxone Sodium 50 ml @ 100 mls/hr DAILY@09 IV 03/06/25 09:00 Insulin Glargine 20 units HS SC 03/06/25 00:45 03/06/25 00:59 20 UNITS Diagnostic Test (Pha) 1 strip ACHS 03/06/25 07:00 Insulin Human Regular HS SC 03/06/25 22:00 Insulin Human Regular AC SC 03/06/25 07:00 03/06/25 13:07 15 UNITS Dextrose 50 ml UD PRN IV 03/06/25 00:45 Metronidazole 100 ml @ 100 mls/hr Q8HR IV 03/06/25 14:00 Hydralazine HCl 10 mg Q6H IV 03/06/25 06:00 03/06/25 06:30 10 MG Nystatin 1 applic BID TOP 03/06/25 10:00 Nifedipine 90 mg DAILY PO 03/06/25 10:00 Lactated Ringer's 1,000 ml @ 75 mls/hr [id number] IV 03/06/25 04:15 Lidocaine 1 patch DAILY TOP 03/06/25 10:00 Famotidine 20 mg DAILY IV 03/07/25 10:00 Aspirin 81 mg DAILY PO 03/06/25 10:00 Atorvastatin Calcium 40 mg HS PO 03/06/25 22:00 Tamsulosin HCl 0.4 mg QPM PO 03/06/25 18:00 Morphine Sulfate 2 mg Q4HPRN PRN IV 03/06/25 07:45 Enoxaparin Sodium 40 mg DAILY SC 03/07/25 10:00 Ticagrelor 90 mg BID PO 03/06/25 22:00 laboratory and microbiology Laboratory Tests 03/06/25 06:51 Test 03/06/25 06:51 Range/Units Serum Glucose 319 H 74-106 mg/dL NIRMAL MARS RESIDENT Mar 06, 2025 13:16
[2025-03-06] MEDS: NYSTATIN TOPICAL POWDER 15GM TOP SCH (13:30)
[2025-03-06] MEDS: ENOXAPARIN SOD 40 MG/0.4 ML SYRINGE SC ONE (13:31)
[2025-03-06] MEDS: TICAGRELOR 90 MG TAB PO ONE (13:31)
[2025-03-06] MEDS: TAMSULOSIN HYDROCHLORIDE 0.4 MG CAP PO ONE (13:31)
[2025-03-06] MEDS: LIDOCAINE 5% TOPICAL PATCH TOP SCH (13:32)
[2025-03-06] MEDS: ONDANSETRON HCL 4 MG/2 ML VIAL IV PRN (13:45)
[2025-03-06] MEDS: MORPHINE SULFATE INJ 2 MG/ml SYRG IV PRN (13:46)
[2025-03-06 14:30] VITALS: PULSE 112; RESP 15; O2SAT 98
[2025-03-06] MEDS: NALOXONE HCL 0.4 MG/ML VIAL IV ONE (15:15)
--- NOTE | 2025-03-06 15:26 | DVH ---
CLINICAL HISTORY: AMS TECHNIQUE: Helical scanning was performed of the head from the skull base to the vertex. Multiplanar reconstructions were performed. This exam was performed according to our departmental dose optimizat ion program. Up-to-date CT equipment and radiation dose reduction techniques are utilized as appropri ate. CTDI 54.8 DLP 177.7 COMPARISON: None FINDINGS: There is no evidence for acute intracranial hemorrhage, mass, mass effect, or extra-axial fluid colle ction. There is no hydrocephalus or midline shift. There is no effacement of the cerebral sulci and b lorenza subarachnoid cisterns. The barry-white matter differentiation is well maintained. THERE HAS BEEN RIGHT FRONTAL CRANIOTOMY. There are small old right frontal lobe infarct. There is A S mall age indeterminate left cerebellar infarct. The imaged paranasal sinuses are clear. IMPRESSION: NO ACUTE INTRACRANIAL ABNORMALITY SEEN. SMALL AGE INDETERMINATE LEFT CEREBELLAR INFARCT.
[2025-03-06] MEDS: PANTOPRAZOLE 40 MG/10 ML VIAL INJ IV SCH (15:30)
[2025-03-06] MEDS: KETOROLAC TROMETH 30 MG/ML 1ML VIAL IV PRN (15:31)
[2025-03-06 16:30] LABS: Alanine Aminotransferase 15 U/L (7-40); Albumin 4.4 g/dL (3.2-4.8); Alkaline Phosphatase 105 U/L (46-116); Anion Gap 14 (5-15); BUN/Creatinine Ratio 7.3 (10.0-20.0); Bilirubin, Total 0.6 mg/dL (0.2-1.0); Blood Urea Nitrogen 11 mg/dL (9-23); Calcium 9.2 mg/dL (8.7-10.4); Carbon Dioxide 20 mmol/L (20-31); Chloride 104 mmol/L (98-107); Glucose 358 mg/dL (74-106); Potassium 3.4 mmol/L (3.5-5.1); Sodium 138 mmol/L (136-145); Total Protein 7.5 g/dL (5.7-8.2)
[2025-03-06] MEDS: INSULIN DRIP 100 UNIT/100ML 100 ML IV SCH (16:51)
[2025-03-06 16:56] LABS: Base Excess -3.2 mmol/L (-2.0-3.0)
[2025-03-06] MEDS: INSULIN LANTUS (GLARGINE) 1 /0.01ml (100units/ml) SC ONE (17:06)
[2025-03-06] MEDS ORDERED: LEVALBUTEROL HCL 1.25 MG/3 ML NEB NEB SCH (18:00)
[2025-03-06] MEDS: TAMSULOSIN HYDROCHLORIDE 0.4 MG CAP PO SCH (18:00)
[2025-03-06] MEDS: POTASSIUM CHL 20MEQ/100ML 100 ML IV SCH (18:36)
[2025-03-06 18:45] VITALS: BP 195/89; PULSE 10; RESP 20; TEMP 98.3; O2SAT 99
--- NOTE | 2025-03-06 18:57 | DVH ---
CHEST RADIOGRAPH Indication: CENTRAL LINE PLACEMENT. Technique: Single frontal view of the chest was obtained Comparison: None FINDINGS: Lines and Tubes: RIGHT INTERNAL JUGULAR CATHETER IN PLACE. IT APPEARS TO BE IN THE RIGHT ATRIUM. Lungs: No focal consolidation. Pleura: No effusion. No pneumothorax. Cardiomediastinal contours: Unremarkable Bones: No acute osseous abnormality. IMPRESSION: 1. RIGHT INTERNAL JUGULAR CATHETER IN PLACE. IT APPEARS TO BE IN THE RIGHT ATRIUM.
--- NOTE | 2025-03-06 19:06 | DVHPNRES ---
Progress Note Date Seen: Mar 07, 2025 Resident Creating Document: MADISON GREGG RESIDENT Has the PT tested + for MRSA If YES, has PT been informed?: No Medical Necessity Reason Pt with a Central, PICC or Fol: No Subjective Review of Systems A 64-year-old female with past medical history of hypertension, type 2 diabetes mellitus, CAD status post PTCA 1 year ago, multiple CVAs 2 years ago, cerebral stenosis and skin cancer came to the ED with chief complaints of diffuse abdominal pain more in the lower right side which is 8/10 in intensity, sharp, stabbing, constant, no relieving or aggravating factors, and radiating to the back,. Patient denies any nausea, vomiting, diarrhea, constipation, blood in the stool, fever, chills, dysuria, hematuria. On arrival patient is hypertensive, urinalysis is positive for UTI. Patient also states having a yeast infection since [address] Abdomen shows Mucosal thickening of the right and transverse colon. Correlate clinically for signs and symptoms of colitis. Bilateral renal calculi without hydronephrosis. Patient denies any sick contacts, recent travel. Past surgical history: surgery for cerebral stenosis, appendicectomy, hysterectomy, PTCA, Skin cancer Laser therapy Family history: Reviewed noncontributory Personal history: smokes 4 cigarettes per day started 3 months ago, drinks occasionally, smokes weed 2 times a week Lives with: family PCP:Dr. Guevara 03/06/25: Today the patient continues to complain about abdominal pain, morphine 2 mg given and patient had an episode of unresponsiveness that resolved after narcan administration, also BPs was unable to control with regular antihypertensives, nicardipine drip started, acute stroke was ruled out with CT scan, insulin drip started due to uncontrolled blood sugars and new CT scan abdomen with contrast showed acute pancreatitis that can explained the severe abdominal pain Objective vital signs Vital Sign Date Time Temp Pulse Resp B/P (MAP) Pulse Ox O2 Delivery O2 Flow Rate FiO2 03/06/25 18:45 98.3 10 20 195/89 99 0.0 21 98.3 03/06/25 14:30 Room Air* medications Current Medications Medications Dose Ordered Sig/Maco Route Start Time Stop Time Status Last Admin Dose Admin Ceftriaxone Sodium 50 ml @ 100 mls/hr DAILY@09 IV 03/06/25 09:00 03/06/25 13:30 100 MLS/HR Diagnostic Test (Pha) 1 strip ACHS 03/06/25 07:00 03/06/25 17:07 1 STRIP Dextrose 50 ml UD PRN IV 03/06/25 00:45 Metronidazole 100 ml @ 100 mls/hr Q8HR IV 03/06/25 14:00 03/06/25 17:07 100 MLS/HR Nystatin 1 applic BID TOP 03/06/25 10:00 03/06/25 13:30 1 APPLIC Lidocaine 1 patch DAILY TOP 03/06/25 10:00 Famotidine 20 mg DAILY IV 03/07/25 10:00 Aspirin 81 mg DAILY PO 03/06/25 10:00 03/06/25 13:37 81 MG Atorvastatin Calcium 40 mg HS PO 03/06/25 22:00 Tamsulosin HCl 0.4 mg QPM PO 03/06/25 18:00 Enoxaparin Sodium 40 mg DAILY SC 03/07/25 10:00 Ticagrelor 90 mg BID PO 03/06/25 22:00 Nicardipine HCl 250 ml @ 50 mls/hr Q5H IV 03/06/25 15:15 Cancel Ketorolac Tromethamine 15 mg Q6HPRN PRN IV 03/06/25 15:30 03/11/25 15:29 03/06/25 15:31 15 MG Pantoprazole Sodium 40 mg BID IV 03/06/25 15:30 Insulin Human (Reg)/Sodium Chloride 100 ml @ 0.5 mls/hr Q24H IV 03/06/25 15:45 03/06/25 16:51 6 MLS/HR Diagnostic Test (Pha) 1 strip Q90MIN 03/06/25 16:30 03/06/25 18:28 1 STRIP Dextrose 50 ml PRN PRN IV 03/06/25 15:45 Insulin Glargine 15 units DAILY SC 03/07/25 10:00 Nicardipine/ Sodium Chloride 200 ml @ 50 mls/hr Q4H IV 03/06/25 17:15 03/06/25 16:00 50 MLS/HR Potassium Chloride 100 ml @ 50 mls/hr Q2H IV 03/06/25 17:45 03/06/25 21:44 03/06/25 18:36 50 MLS/HR Examination General: Patient alert and oriented in person, place and time. Patient following commands. In moderate distress, after narcan administration: before GCS 8 now GCS 14 HEENT: Normocephalic, atraumatic, moist mucous membranes Respiratory/pulmonary: Clear lungs bilaterally, vesicular murmurs present in almost all lung quiroz, no associated crackles or wheezes. Cardiovascular: Normal heart sounds S1 and S2 with no associated murmurs E rythema under bilateral breasts Abdomen: Diffuse abdominal tenderness more on right lower quadrant. Erythema over suprapubic area Extremities: There is no peripheral edema present at the lower extremities. Peripheral Pulses: 3+ Radial (R). 3+ Radial (L). 3+ Dorsalis pedis (R). 3+ Dorsalis pedis(L) Skin: No rashes or pruritus, there is no sacral edema present at this time. Neurological: Intact cranial nerves with no focal neurologic deficits Psych, mood: Normal psych, mood laboratory and microbiology Laboratory Tests 03/06/25 15:53 03/06/25 06:51 Test 03/06/25 15:53 Range/Units Serum Glucose 358 H 74-106 mg/dL Microbiology Date/Time Source Procedure Growth Status 03/05/25 17:12 Blood Blood Culture - Preliminary NO GROWTH AFTER 24 HOURS OF INCUBATION. Resulted Problem List/Assessment/Plan Problem List/Assessment/Plan Neurology: #Acute toxic/metabolic encephalopathy due to opioid overdose? #H/o stroke #H/o craniotomy #Acute stroke rule out Narcan given avoid opioids GCS improved after narcan Head CT scan: There is no evidence for acute intracranial hemorrhage, mass, mass effect, or extra-axial fluid collection. There is no hydrocephalus or midline shift. There is no effacement of the cerebral sulci and basal subarachnoid cisterns. The barry-white matter differentiation is well maintained. THERE HAS BEEN RIGHT FRONTAL CRANIOTOMY. There are small old right frontal lobe infarct. There is A Small age indeterminate left cerebellar infarct. The imaged paranasal sinuses are clear. NO ACUTE INTRACRANIAL ABNORMALITY SEEN. SMALL AGE INDETERMINATE LEFT CEREBELLAR INFARCT. Cardiology #Hypertensive emergency: organ failure kidney nicardipine drip #Coronary disease s/p PTCA Ticaglelor Respiratory: no oxygen requirement GI #Acute interstitial pancreatitis #Acute infectious colitis # Questionable mesenteric ischemia ICU status CT scan findings: 1. Acute interstitial pancreatitis. No fluid collection. Please note that the arteries of the abdomen are not well evaluated due to venous phase examination. There is high-grade stenosis suspected in the right renal artery origin. 3. Long segment mucosal thickening of the rectosigmoid colon may be due to underdistention. Colitis is not entirely excluded and should be correlated with patient's symptoms. 4. Nonobstructive bilateral nephrolithiasis. Hold on fluids due to hypertensive emergency: nicardipine drip NPO ceftriaxone + metronidazole #Hypertriglyceridemia 300s, unlikely to be the cause of the pancreatitis Normal gallbladder ultrasound Endocrinology #Uncontrolled diabetes mellitus insulin drip: maintain sugars below 180 above 140 no DKA, unlikely HHS #Euthyroid sick syndrome Renal #DALE due to hypertensive emergency, high-grade stenosis suspected in the right renal artery origin. nicardipin drip ARB or IECA will be consider for treatment #Complicated UTI ceftraxione IV Heme/onc Leucocytosis due to pancreatitis, SIRS, ID Ceftriaxone + metronidazole due to colitis and UTI? Lines RIJ Tripp Patient is DNR/ DNI Case discussed with Dr Devries Plan discussed with: Patient, Other (rn) My Orders My Orders Orders - MADISON GREGG RESIDENT Procedure Category Date Status Time Head Without Contrast CT 03/06/25 Resulted 14:51 Transfer Orders XFER 03/06/25 Transmitted 15:17 Ketorolac Injection PHA 03/06/25 In Process (Toradol Injection) 15:30 Npo (Nothing By DIET 03/06/25 Transmitted Mouth) Diet Dinner Strict Aspiration NANCY 03/06/25 In Process Precautions 15:22 Pantoprazole PHA 03/06/25 In Process (Protonix) 15:30 Insert Tripp Catheter NANCY 03/06/25 In Process 15:28 Insulin Drip 100 PHA 03/06/25 In Process Unit/100ml (Myxredlin 15:45 Glucose Blood PHA 03/06/25 In Process (Accu-Chek Comfort 16:30 D/C All Diabetic NANCY 03/06/25 In Process Medications 15:38 Insulin Drip Protocol NANCY 03/06/25 In Process 15:38 Dextrose 50% Syringe PHA 03/06/25 In Process 15:45 Insulin Lantus PHA 03/07/25 In Process (Glargine) (Lantus) 10:00 Abg W/ Co-Ox RT 03/06/25 Logged 15:38 Chest Portable XY 03/06/25 Resulted 16:37 Nicardipine Hcl In PHA 03/06/25 In Process Sodium Chlo (Cardene 17:15 Potassium Chl PHA 03/06/25 In Process 20meq/100ml 17:45 Stool Occult Blood LAB 03/06/25 Logged 17:50 Ct Ab Pelvis W Wo CT 03/06/25 Logged Con-Iv Only 17:50 Communication Order ORDERS 03/06/25 Transmitted 18:20 Date of Service: Mar 07, 2025 Billing Provider: MARCEL DEVRIES MD Common Visit Codes: [id number] CARE 30-74 MIN (crit care time 55 minutes) MADISON GREGG RESIDENT Mar 06, 2025 19:06 CM GRIGSBY RESIDENT Mar 09, 2025 00:12 MARCEL DEVRIES MD Mar 09, 2025 22:31
--- NOTE | 2025-03-06 19:13 | DVHNC2 ---
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 Indication: Other Room prepared for procedure: No [employer] performed hand hygien: No Maximal sterile barrier precau: Mask/Eye shield, Sterile gown, Cap, Sterlie gloves, Large sterlie drape Skin Preparation: Chlorhexidine gluconate, Providine iodine Skin preparation completely dr: No Insertion site: Right, Internal jugular Central line catheter type: Jto-cytzdnho-vah dialysis Number of lumens: 3 Central line exchanged over a: No Antiseptic ointment applied to: No Post Assessment: Chest X-Ray, No Pneumothorax Informed consent obtained: No Risks/benefits/alt described: No Date of Service: Mar 06, 2025 Billing Provider: MARCEL BILLY MD Common Visit Codes: PROCEDURE ONLY Procedure Codes: [id number] NON-TUNNEL CV CATH MADISON GREGG RESIDENT Mar 06, 2025 19:13
[2025-03-06 19:30] VITALS: PULSE 100; RESP 18; O2SAT 93
[2025-03-06] MEDS ORDERED: InsuLIN REG 1unit/0.01ml Soln (100units/ml) SC SCH (22:00)
[2025-03-06] MEDS: IOHEXOL 300 MG/ML 100ML BOTTLE IJ ONE (23:02)
[2025-03-06] MEDS: ATORVASTATIN 20 MG TAB PO SCH (23:17)
[2025-03-06] MEDS: TICAGRELOR 90 MG TAB PO SCH (23:17)
[2025-03-07] VITALS (28 sets, daily range): BP systolic 119–147; BP diastolic 42–71; PULSE 91–118; RESP 13–26; TEMP 97–98.4; O2SAT 91–96
[2025-03-07] MEDS ORDERED: DEXTROSE (50%) 50ML SYRG IV PRN (01:30)
--- NOTE | 2025-03-07 04:33 | DVH ---
Exam: CT CT AB PELVIS W WO CON-IV ONLY History: rule out bowel ischemia Comparison Study: None Contrast: Type of contrast: Omnipaque 300 Contrast injected: 85 mL Contrast wasted: 0 TECHNIQUE: CT scan of the abdomen pelvis was performed without and with intravenous contrast. Lopes l and sagittal reformatted images are submitted. Radiation Dose Information: CT Dose: CTDI volume is 11.39 mGy. Dose-length product is 1116.41 mGy*cm FINDINGS: Lung Bases: There is bilateral lower lobe atelectasis. Normal heart size. No pleural or pericardial effusion. Liver: The liver is normal in size. No focal lesions. Normal hepatic vascular enhancement. Gallbladder and Biliary Tree: The gallbladder is unremarkable. No biliary ductal dilatation. Spleen: Unremarkable Pancreas: There is moderate peripancreatic fat stranding and fluid, consistent with acute pancreatiti s. Adrenal Glands: Unremarkable Kidneys: Kidneys enhance symmetrically. There is nonobstructive right intrarenal calculus measuring 3 mm in the upper pole. There is a 5 mm interpolar left renal calculus without hydronephrosis. Bladder: Unremarkable. Bowel: The stomach is grossly normal in appearance. The small bowel is normal in caliber. There is l salma segment mucosal thickening of the rectosigmoid colon. There is no bowel obstruction. No findings to suggest acute appendicitis. Intraperitoneal cavity: No pneumoperitoneum. No ascites. Lymphadenopathy: No mesenteric, retroperitoneal or periportal lymphadenopathy. Abdominal Wall and Mesentery: Unremarkable. Vasculature: There are atherosclerotic calcifications in the abdominal aorta and its branches. Speci fically, heavy calcification of the right renal artery origin likely contributing to significant sten osis. Mild atherosclerotic calcifications in the left renal artery origin. The other branches of the abdominal aorta appear patent but evaluation is limited on this venous phase study. Pelvic Organs: Unremarkable Musculoskeletal: No aggressive focal bony lesions, acute fractures or dislocation. Intervertebral dis c degeneration at L5-S1. Soft tissues: Subcutaneous emphysema in the right lateral abdomen. Please correlate with any recent i njection. There are calcified granulomas in the bilateral buttocks. IMPRESSION: 1. Acute interstitial pancreatitis. No fluid collection. 2. Please note that the arteries of the abdomen are not well evaluated due to venous phase examinatio n. There is high-grade stenosis suspected in the right renal artery origin. 3. Long segment mucosal thickening of the rectosigmoid colon may be due to underdistention. Colitis i s not entirely excluded and should be correlated with patient's symptoms. 4. Nonobstructive bilateral nephrolithiasis. All CT scans at this medical facility are performed using dose modulation techniques as appropriate t o a performed exam including the following: Automated exposure control was utilized; adjustment of th e MA and/or KV according to patient size; and use of iterative reconstruction technique.
[2025-03-07] MEDS: ACCU-CHEK COMFORT CURVE STRIP VI SCH (06:10)
[2025-03-07] MEDS: InsuLIN REG 1unit/0.01ml Soln (100units/ml) SC SCH (06:20)
[2025-03-07 07:01] LABS: Alanine Aminotransferase 10 U/L (7-40); Albumin 3.7 g/dL (3.2-4.8); Alkaline Phosphatase 85 U/L (46-116); Anion Gap 11 (5-15); BUN/Creatinine Ratio 8.2 (10.0-20.0); Bilirubin, Total 0.8 mg/dL (0.2-1.0); Blood Urea Nitrogen 11 mg/dL (9-23); Hematocrit 39.9 % (36.0-46.0); Hemoglobin 13.6 g/dL (12.2-16.2); Magnesium 1.7 mg/dL (1.6-2.6); Mean Corpuscular Hemoglobin 31.3 pg (28.0-32.0); Mean Corpuscular Volume 92.1 fL (80.0-100.0); Nucleated Red Blood Cells % 0.1 %; Sodium 141 mmol/L (136-145); Total Protein 6.2 g/dL (5.7-8.2)
[2025-03-07 07:08] LABS: INR 1.08 (0.9-1.15); Partial Thromboplastin Time 29.5 SEC (24.5-34.5); Prothrombin Time 11.4 sec (9.3-11.8)
[2025-03-07 07:12] LABS: Calcium 8.7 mg/dL (8.7-10.4); Carbon Dioxide 20 mmol/L (20-31); Chloride 110 mmol/L (98-107); Glucose 233 mg/dL (74-106); Potassium 3.4 mmol/L (3.5-5.1)
[2025-03-07 07:24] LABS: Cholesterol 199 mg/dL (< 200)
[2025-03-07 07:50] LABS: HDL Cholesterol 26 mg/dL (40-59); Triglycerides 333 mg/dL (< 150)
--- NOTE | 2025-03-07 07:56 | DVH ---
INDICATION: rule out cholelithiasis, pancreatitis TECHNIQUE: Multiple real-time sonographic images were obtained of the right upper quadrant. COMPARISON: None FINDINGS: The liver demonstrates homogenous echotexture without focal mass lesions. The liver measure s 16 cm. There is no intrahepatic or extrahepatic ductal dilatation. The common duct measures 0.4 mm. The gallbladder is without evidence of stone or sludge. The gallbladder wall measures 0.3mm and is within normal limits. The right kidney measures 12 cm. The right kidney is normal in contour, size, and shape. There is no hydronephrosis. The pancreas is not well visualized due to overlying bowel gas. IMPRESSION: Echogenic right kidney with right perinephric fluid.
[2025-03-07] MEDS: FAMOTIDINE (10MG/ML) 2ML VL IV SCH (09:34)
[2025-03-07] MEDS: ENOXAPARIN SOD 40 MG/0.4 ML SYRINGE SC SCH (09:35)
[2025-03-07] MEDS ORDERED: INSULIN LANTUS (GLARGINE) 1 /0.01ml (100units/ml) SC SCH (10:00)
[2025-03-07] MEDS: MAGNESIUM SULFATE 1GM/100ML 100 ML IV ONE (14:45)
[2025-03-07] MEDS: POTASSIUM CHL 20MEQ/100ML 100 ML IV SCH (14:45)
--- NOTE | 2025-03-07 15:16 | DVH ---
INDICATION: R/O HIGH GRADE STENOSIS, htn crisis TECHNIQUE: Multiple real-time sonographic images of the kidneys and bladder were obtained. COMPARISON: None FINDINGS: Resistive indices elevated in the left renal artery measuring 0.9. Left renal artery mid el evated velocity. Questionable 1 cm left renal stone. IMPRESSION: 1. Possible left renal artery stenosis. Consider MR or CT angiography.
[2025-03-07 16:15] LABS: COVID19 ANTIGEN SOFIA FIA NEGATIVE (NEGATIVE)
[2025-03-07] MEDS: LACTATED RINGER'S 1,000 ML IV SCH (16:45)
[2025-03-07] MEDS: CARVEDILOL 3.125 MG TAB PO ONE (16:45)
--- NOTE | 2025-03-07 17:46 | DVH ---
CLINICAL HISTORY: hx of stroke, atherosclerosis TECHNIQUE: Bustamante-scale, color and duplex doppler imaging of the bilateral carotid systems was attempte d. COMPARISON: None Findings: Right carotid system: Could not be assessed to overlying bandage. Left carotid system: There is no plaque present in the left carotid system. The following flow velocities were obtained (Cm/sec). Left carotid System: ICA PSV: 8.7 Cm/sec ICA PDV: 21.9 Cm/sec ICA/CCA Ratio: .7 The common carotid and external carotid arteries are patent. There is antegrade flow in the left isabel tebral artery and external carotid artery. IMPRESSION: Right carotid system cannot be assessed due to overlying bandage. LESS THAN 50% LEFT ICA NARROWING. Estimation of carotid stenosis is based on velocity parameters that correlate the residual internal c arotid Diameter with that of the more distal vessel in accordance with the [place] symptomatic Carotid Endarterectomy trial (NASCET).
--- NOTE | 2025-03-07 19:21 | DVHPNRES ---
Progress Note Date Seen: Mar 07, 2025 Resident Creating Document: GABE GARRETT RESIDENT Has the PT tested + for MRSA If YES, has PT been informed?: No Medical Necessity Reason Pt with a Central, PICC or Fol: Yes The following are medically ne: Central Line Subjective Review of Systems Patient 64-year-old female with hypertension, type 2 diabetes mellitus on insulin Basaglar 38 units, CAD status post stent 1 year back, multiple CVAs who presented to the ER with a chief complaint of abdominal pain for the past 2 months, associated with bloating, the pain has been therefore 2 months as sharp, not related to exertion, not related to food or fasting, she has been experiencing vomiting for the past night but otherwise denies diarrhea or constipation. No fever or chills. He abdomen showed colitis, repeat CT with IV contrast showed bilateral kidney stones, interstitial pancreatitis, high-grade renal artery stenosis. CT head showed old small frontal lobe infarct, age indeterminate left cerebellar infarct. Patient A1c was 12. WBC count has been increasing to 18 from 10 on arrival. Patient had good appetite but severe abdominal pain. Not passing gas. Last bowel movement was 03/05. Patient seen and examined in ER, downgraded to telemetry, started clear liquid diet, started lactated ringer 75 cc/hour, started amlodipine and Coreg, we will up titrate to control blood pressure, DC nicardipine drip, consider CT angio after kidney function improves and if pain persists. Lactic acid has resolved. GI evaluation pending. DALE worsening. Lipase increased to 900 Objective vital signs Vital Sign Date Time Temp Pulse Resp B/P (MAP) Pulse Ox O2 Delivery O2 Flow Rate FiO2 03/07/25 18:00 98.0 96 27 160/65 (96) 92 98.0 03/07/25 15:55 Room Air* 0 21 Total Intake and Output 03/06/25 03/06/25 03/07/25 15:00 23:00 07:00 Intake Total 430.5 ml 400 ml Balance 430.5 ml 400 ml medications Current Medications Medications Dose Ordered Sig/Maco Route Start Time Stop Time Status Last Admin Dose Admin Ceftriaxone Sodium 50 ml @ 100 mls/hr DAILY@09 IV 03/06/25 09:00 03/07/25 09:36 100 MLS/HR Metronidazole 100 ml @ 100 mls/hr Q8HR IV 03/06/25 14:00 03/07/25 14:57 100 MLS/HR Nystatin 1 applic BID TOP 03/06/25 10:00 03/06/25 22:00 1 APPLIC Lidocaine 1 patch DAILY TOP 03/06/25 10:00 Aspirin 81 mg DAILY PO 03/06/25 10:00 03/07/25 10:44 81 MG Enoxaparin Sodium 40 mg DAILY SC 03/07/25 10:00 03/07/25 09:35 40 MG Ticagrelor 90 mg BID PO 03/06/25 22:00 03/07/25 09:36 90 MG Nicardipine HCl 250 ml @ 50 mls/hr Q5H IV 03/06/25 15:15 Cancel Pantoprazole Sodium 40 mg BID IV 03/06/25 15:30 03/07/25 09:35 40 MG Amlodipine Besylate 10 mg DAILY PO 03/08/25 10:00 Carvedilol 6.25 mg Q12HR PO 03/07/25 22:00 Insulin Glargine 20 units HS SC 03/07/25 22:00 Lactated Ringer's 1,000 ml @ 75 mls/hr [id number] IV 03/07/25 16:45 03/07/25 16:45 75 MLS/HR Examination Obese female patient lying in the bed, patient is hungry, well conversational General: Overweight, afebrile, palor, mucosae are moist Cardiovascular: Tachycardia but Regular S1 and S2. No murmurs, gallops or rubs. No JVD elevation. 1+ pitting pedal edema bilaterally Respiratory: Normal B/L air entry on room air. Clear lung sounds on auscultation Abdomen: Right lower quadrant and epigastric tenderness to palpation, hypoactive bowel sounds, no rebound tenderness, no organomegaly, no masses Genitourinary: Deferred MSK/skin: Mobilizes 4 limbs. Skin is dry and warm Neurological: No motor, no sensitive deficits, normal speech. Pupils are isocoric and reactive. Psych/Mental Status: A/Ox3 laboratory and microbiology Laboratory Tests 03/07/25 05:48 Test 03/07/25 05:48 Range/Units Serum Glucose 233 H 74-106 mg/dL Microbiology Date/Time Source Procedure Growth Status 03/06/25 07:03 Blood Blood Culture - Preliminary NO GROWTH AFTER 24 HOURS OF INCUBATION. Resulted 03/05/25 17:20 Voided Urine Urine Culture - Preliminary Resulted Labs and/or images reviewed: Labs reviewed by me, Image(s) reviewed by me Problem List/Assessment/Plan Problem List/Assessment/Plan NEURO: Acute toxic/metabolic encephalopathy due to opioid overdose? Old frontal lobe infarct Age indeterminate left cerebellar infarct Ruled out acute stroke CT scan confirms above Aspirin and Lipitor Unremarkable carotid Doppler CARDIOVASCULAR: Hypertensive emergency Rule out CHF CAD status post 1 MAMADOU 1 year back Uncontrolled hypertension Sinus tachycardia Hypertriglyceridemia Echocardiogram pending DC nicardipine drip Amlodipine 10 mg and Coreg 6.25 b.i.d. GASTROINTESTINAL: Acute interstitial pancreatitis Rule out ischemic colitis Sepsis secondary to Colitis likely etiology infectious Lactated ringer 75 cc Clear liquid diet IV ceftriaxone and metronidazole GI consultation Pending GENITOURINARY: Likely left Renal artery stenosis DALE likely contrast induced/NSAIDs Complicated Cystitis Bilateral renal calculi FENA pending IV fluids METABOLIC: Uncontrolled Diabetes mellitus type 2-HGB A1c 12 Lantus 20 mg HS daily Moderate ISS INFECTIOUS DISEASE: Sepsis secondary to infectious colitis Blood culture negative, urine culture [id number] Gram-positive [place] DIET: Clear liquids DVT prophylax: Lovenox 40 mg sc daily GI prophylaxis: Protonix twice daily Bowel regimen: None Code status: Full code LINES/DRAINS/ACCESS: IV access: Right CBC IJ 03/06 Last bowel movement: 03/05 DISPOSITION: Telemetry Patient's status discussed with patient's daughter at bedside which all questions have been answered Goals care discussed with patient, patient's daughter full code status Critical care time spent more than 69 minutes, including patient care, chart review, and updating the family. Excluding any procedures Case discussed with Dr. Guan Plan discussed with: Patient, Daughter (Bedside) My Orders My Orders Orders - GABE GARRETT RESIDENT Procedure Category Date Status Time Renal Artery Lmtd US 03/07/25 Resulted 13:56 Amlodipine Tablet PHA 03/08/25 In Process (Norvasc Tablet) 10:00 Carvedilol Tablet PHA 03/07/25 In Process (Coreg Tablet) 22:00 Carotid Duplx W Color US 03/07/25 Resulted DOP 16:32 Insulin Lantus PHA 03/07/25 In Process (Glargine) (Lantus) 22:00 * Gi Dvh Propagation Worker CONS 03/07/25 Transmitted 16:32 Lactated Ringer's PHA 03/07/25 In Process 16:45 Code Status CODE 03/07/25 Transmitted 19:05 Transfer Orders XFER 03/07/25 Transmitted 19:05 Date of Service: Mar 07, 2025 Billing Provider: MONIQUE GUAN MD Common Visit Codes: [id number] CARE 30-74 MIN GABE GARRETT RESIDENT Mar 07, 2025 19:21 MONIQUE GUAN MD Mar 08, 2025 12:56
[2025-03-07] MEDS ORDERED: CARVEDILOL 3.125 MG TAB PO SCH (22:00)
[2025-03-07] MEDS: CARVEDILOL 12.5 MG TAB PO SCH (22:24)
[2025-03-07] MEDS: INSULIN LANTUS (GLARGINE) 1 /0.01ml (100units/ml) SC SCH (22:32)
[2025-03-08] VITALS (8 sets, daily range): BP systolic 114–144; BP diastolic 62–77; PULSE 77–88; RESP 16–20; TEMP 97.2–98.9; O2SAT 94–99
[2025-03-08 05:35] LABS: Hematocrit 39.3 % (36.0-46.0); Hemoglobin 13.5 g/dL (12.2-16.2); Mean Corpuscular Hemoglobin 31.5 pg (28.0-32.0); Mean Corpuscular Volume 91.8 fL (80.0-100.0); Nucleated Red Blood Cells % 0.0 %
[2025-03-08 05:56] LABS: Albumin 3.4 g/dL (3.2-4.8); Alkaline Phosphatase 77 U/L (46-116); Anion Gap 9 (5-15); BUN/Creatinine Ratio 10.8 (10.0-20.0); Blood Urea Nitrogen 13 mg/dL (9-23); Carbon Dioxide 21 mmol/L (20-31); Magnesium 1.9 mg/dL (1.6-2.6); Sodium 141 mmol/L (136-145)
[2025-03-08 05:57] LABS: Bilirubin, Total 1.0 mg/dL (0.2-1.0)
[2025-03-08 06:07] LABS: Chloride 111 mmol/L (98-107); Glucose 125 mg/dL (74-106); Potassium 3.1 mmol/L (3.5-5.1)
[2025-03-08 06:08] LABS: Alanine Aminotransferase < 9 U/L (7-40); Calcium 8.2 mg/dL (8.7-10.4); Total Protein 5.7 g/dL (5.7-8.2)
[2025-03-08] MEDS: POTASSIUM CHL 20MEQ/100ML 100 ML IV SCH (08:33)
[2025-03-08] MEDS: HYDROcodone-ACET 5/325MG TAB PO ONE (09:00)
--- NOTE | 2025-03-08 10:36 | ECG ---
[facility] Test Date: 2025-03-08 Test Time: 10:14:49 Pat Name: SHELLIE VAZQUEZ Department: Room: 0294T A Gender: F Automated Access Systems Technician: CHERYL : 1960 Requested By: GABE GARRETT Order Number: [id number] Reading MD: Elio Patel Measurements Intervals Omega Rate: 86 P: 73 NC: 150 QRS: 59 QRSD: 74 T: 173 QT: 453 QTc: 542 Interpretive Statements Sinus rhythm Borderline low voltage, extremity leads Anteroseptal infarct, old Nonspecific T abnormalities, lateral leads Prolonged QT interval Electronically Signed On 03-08-2025 14:40:30 PDT by Elio Patel Please click the below link to view image of tracing.
--- NOTE | 2025-03-08 11:34 | DVH ---
Date: 03/08/2025 10:21 AM Examination: XY KUB ABDOMEN SINGLE VIEW History: hypoactive bowel sounds Comparison: US RENAL ARTERY LMTD on DOS: 03/07/25, CT CT AB PELVIS W WO CON-IV ONLY on DOS: 03/07/25, CT CT AB PEL WO CON-NO ORAL OR IV on DOS: 03/05/25 TECHNIQUE: Frontal views of the abdomen was obtained. FINDINGS: Diffusely dilated loops of small bowel measuring up to 3 cm. The lung bases are unremarkable. No acute osseous abnormality identified. IMPRESSION: Dilated loops of small bowel which could represent ileus or obstruction
--- NOTE | 2025-03-08 13:03 | DVHINCON2 ---
GI Consult Consult Note GI consult note Date of Consultation: 03/08/2025 Chief Complaint: Pancreatitis, bloating, abdominal pain, rule out ischemic bowel, high atherosclerotic Referring Physician: Dr. Tello H&P: 64-year-old female with past medical history of hypertension, diabetes, CAD status post stent one year ago on Brilinta and aspirin, multiple CVAs admitted with complains of right-sided abdominal pain which is radiating to her back. Patient says pain is getting worse. Had nausea and vomiting but at this time none. Denies fevers and chills. Last bowel movement 03/05/2025 on day two of admission denies melena or red blood in stool. Denies history of alcohol use. No colonoscopy in past Past Medical History: HTN, dm, CAD, CVA Past Surgical History: cerebral stenosis, appendicectomy, hysterectomy, PTCA, Skin cancer Lazer therapy Social History: smokes 4 cigarettes per day started 3 months ago, drinks occasionally, smokes weed 2 times a week Family History: Noncontributory Review of Systems: Constitutional: no fever, chill, weight loss HEENT: no eye pain, no hearing loss, no oral lesion, no scleral icterus Heart: no chest pain, no chest pressure Lung: no cough, no dyspnea with exertion Abdomen: see HPI Physical exam: General: NAD, AAOX3 Chest: lung quiroz clear to auscultation Heart: RRR, no murmur Abdomen: + right side abdominal tenderness to palpation, +BS Labs: Test 03/07/25 05:48 Range/Units Serum Glucose 233 H 74-106 mg/dL Microbiology Date/Time Source Procedure Growth Status 03/06/25 07:03 Blood Blood Culture - Preliminary NO GROWTH AFTER 24 HOURS OF INCUBATION. Resulted 03/05/25 17:20 Voided Urine Urine Culture - Preliminary Resulted Labs and/or images reviewed: Labs reviewed by me, Image(s) reviewed by me Imaging: CT abdomen pelvis 03/05/2025 IMPRESSION: 1. Mucosal thickening of the right and transverse colon. Correlate clinically for signs and symptoms of colitis 2. Bilateral renal calculi without hydronephrosis. Both vascular and parenchymal calcifications are in the differential. CT abdomen pelvis with p.o. and IV contrast 03/07/2025 IMPRESSION: 1. Acute interstitial pancreatitis. No fluid collection. 2. Please note that the arteries of the abdomen are not well evaluated due to venous phase examination. There is high-grade stenosis suspected in the right renal artery origin. 3. Long segment mucosal thickening of the rectosigmoid colon may be due to underdistention. Colitis is not entirely excluded and should be correlated with patient's symptoms. 4. Nonobstructive bilateral nephrolithiasis. Abdominal ultrasound IMPRESSION: Echogenic right kidney with right perinephric fluid. KUB IMPRESSION: Dilated loops of small bowel which could represent ileus or obstruction Assessment: Abdominal pain Pancreatitis Colitis Possible bowel obstruction Plan: Discussed with Dr. Parmar Stool for WBC, bacterial culture, O&P Continue IV antibiotics Small-bowel follow-through with Gastrografin Clear liquid diet We will continue to monitor patient Plan discussed with patient and RN Thank you for this consult Date of Service: Mar 08, 2025 Billing Provider: SHARI ANDINO Common Visit Codes: CONSULT ONLY Consultation Codes: [id number] CONSULT <60MIN SHARI ANDINO Mar 08, 2025 13:02
--- NOTE | 2025-03-08 18:42 | DVHPNRES ---
Progress Note Date Seen: Mar 08, 2025 Resident Creating Document: GABE GARRETT RESIDENT Has the PT tested + for MRSA If YES, has PT been informed?: No Medical Necessity Reason Pt with a Central, PICC or Fol: Yes The following are medically ne: Central Line Subjective Review of Systems Patient 64-year-old female with hypertension, type 2 diabetes mellitus on insulin Basaglar 38 units, CAD status post stent 1 year back, multiple CVAs who presented to the ER with a chief complaint of abdominal pain for the past 2 months, associated with bloating, the pain has been therefore 2 months as sharp, not related to exertion, not related to food or fasting, she has been experiencing vomiting for the past night but otherwise denies diarrhea or constipation. No fever or chills. He abdomen showed colitis, repeat CT with IV contrast showed bilateral kidney stones, interstitial pancreatitis, high-grade renal artery stenosis. CT head showed old small frontal lobe infarct, age indeterminate left cerebellar infarct. Patient A1c was 12. WBC count has been increasing to 18 from 10 on arrival. Patient had good appetite but severe abdominal pain. Not passing gas. Last bowel movement was 03/05. 03/07 - Patient seen and examined in ER, downgraded to telemetry, started clear liquid diet, started lactated ringer 75 cc/hour, started amlodipine and Coreg, we will up titrate to control blood pressure, DC nicardipine drip, consider CT angio after kidney function improves and if pain persists. Lactic acid has resolved. GI evaluation pending. DALE worsening. Lipase increased to 900 03/08-patient seen and examined, not passing gas or BM. GI recommended a small bowel series. KUB shows ileus versus obstruction. Objective vital signs Vital Sign Date Time Temp Pulse Resp B/P (MAP) Pulse Ox O2 Delivery O2 Flow Rate FiO2 03/08/25 16:51 97.5 81 16 124/71 (88) 94 97.5 03/08/25 08:00 Room Air* 0 21 Total Intake and Output 03/07/25 03/07/25 03/08/25 15:00 23:00 07:00 Intake Total 865 ml 100 ml Balance 865 ml 100 ml medications Current Medications Medications Dose Ordered Sig/Maco Route Start Time Stop Time Status Last Admin Dose Admin Ceftriaxone Sodium 50 ml @ 100 mls/hr DAILY@09 IV 03/06/25 09:00 03/08/25 08:37 100 MLS/HR Metronidazole 100 ml @ 100 mls/hr Q8HR IV 03/06/25 14:00 03/08/25 14:14 100 MLS/HR Nystatin 1 applic BID TOP 03/06/25 10:00 03/07/25 22:42 1 APPLIC Lidocaine 1 patch DAILY TOP 03/06/25 10:00 03/08/25 09:51 1 PATCH Aspirin 81 mg DAILY PO 03/06/25 10:00 03/08/25 09:49 81 MG Enoxaparin Sodium 40 mg DAILY SC 03/07/25 10:00 03/08/25 09:50 40 MG Ticagrelor 90 mg BID PO 03/06/25 22:00 03/08/25 09:50 90 MG Nicardipine HCl 250 ml @ 50 mls/hr Q5H IV 03/06/25 15:15 Cancel Pantoprazole Sodium 40 mg BID IV 03/06/25 15:30 03/08/25 10:03 40 MG Amlodipine Besylate 10 mg DAILY PO 03/08/25 10:00 03/08/25 09:50 10 MG Insulin Glargine 20 units HS SC 03/07/25 22:00 03/07/25 22:32 20 UNITS Lactated Ringer's 1,000 ml @ 75 mls/hr [id number] IV 03/07/25 16:45 03/08/25 05:29 75 MLS/HR Carvedilol 12.5 mg Q12HR PO 03/07/25 22:00 03/08/25 09:49 12.5 MG Acetaminophen 650 mg Q4HP PRN PO 03/07/25 19:30 Examination Obese female patient lying in the bed, patient is hungry, well conversational General: Overweight, afebrile, palor, mucosae are moist Cardiovascular: Tachycardia but Regular S1 and S2. No murmurs, gallops or rubs. No JVD elevation. 1+ pitting pedal edema bilaterally Respiratory: Normal B/L air entry on room air. Clear lung sounds on auscultation Abdomen: Right lower quadrant and epigastric tenderness to palpation, hypoactive bowel sounds, no rebound tenderness, no organomegaly, no masses Genitourinary: Deferred MSK/skin: Mobilizes 4 limbs. Skin is dry and warm Neurological: No motor, no sensitive deficits, normal speech. Pupils are isocoric and reactive. Psych/Mental Status: A/Ox3 laboratory and microbiology Laboratory Tests 03/08/25 04:52 Test 03/08/25 04:52 Range/Units Serum Glucose 125 H 74-106 mg/dL Microbiology Date/Time Source Procedure Growth Status 03/06/25 07:03 Blood Blood Culture - Preliminary NO GROWTH AFTER 48 HOURS OF INCUBATION. Resulted 03/05/25 17:20 Voided Urine Urine Culture - Final Complete Labs and/or images reviewed: Labs reviewed by me, Image(s) reviewed by me Problem List/Assessment/Plan Problem List/Assessment/Plan NEURO: Acute toxic/metabolic encephalopathy due to opioid overdose? 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 EKG shows nonspecific ST changes, no STEMI Echocardiogram pending GASTROINTESTINAL: Acute interstitial pancreatitis Rule out ischemic colitis Sepsis secondary to Colitis likely etiology infectious Lactated ringer 75 cc Clear liquid diet IV ceftriaxone and metronidazole GI consultation recommended a small bowel series with Gastrografin-stool studies pending Repeat lipase in a.m. pending GENITOURINARY: Likely left Renal artery stenosis DALE likely contrast induced/NSAIDs Complicated Cystitis Bilateral renal calculi Creatinine trending down, GFR improving IV fluids METABOLIC: Uncontrolled Diabetes mellitus type 2-HGB A1c 12 Lantus 20 mg HS daily Moderate ISS INFECTIOUS DISEASE: Sepsis secondary to infectious colitis Blood culture negative, urine culture [id number] Gram-positive [place] DIET: Clear liquids DVT prophylax: Lovenox 40 mg sc daily GI prophylaxis: Protonix twice daily Bowel regimen: None Code status: Full code LINES/DRAINS/ACCESS: IV access: Right CBC IJ 03/06 Last bowel movement: 03/05 DISPOSITION: Telemetry Patient's status discussed with patient's daughter at bedside which all questions have been answered Goals care discussed with patient, patient's daughter full code status Critical care time spent more than 48 minutes, including patient care, chart review, and updating the family. Excluding any procedures Case discussed with Dr. Guan Plan discussed with: Patient My Orders My Orders Orders - ALI,GABE RESIDENT Procedure Category Date Status Time Code Status CODE 03/07/25 Transmitted 19:05 Transfer Orders XFER 03/07/25 Transmitted 19:05 Acetaminophen Tablet PHA 03/07/25 In Process (Tylenol Tablet) 19:30 Carvedilol Tablet PHA 03/07/25 In Process (Coreg Tablet) 22:00 Electrocardigram EKG 03/08/25 Resulted 10:00 Urinalysis LAB 03/08/25 Logged 10:00 Kub Abdomen Single XY 03/08/25 Resulted View 10:00 Date of Service: Mar 08, 2025 Billing Provider: MONIQUE GUAN MD Common Visit Codes: [id number] CARE 30-74 MIN GABE GARRETT Mar 08, 2025 18:42 MONIQUE GUAN MD Mar 10, 2025 15:42
[2025-03-09] VITALS (8 sets, daily range): BP systolic 124–155; BP diastolic 68–82; PULSE 79–86; RESP 17–18; TEMP 98.3–99.3; O2SAT 95–98
[2025-03-09 07:38] LABS: Albumin 3.3 g/dL (3.2-4.8); Alkaline Phosphatase 75 U/L (46-116); Anion Gap 8 (5-15); BUN/Creatinine Ratio 11.3 (10.0-20.0); Bilirubin, Total 0.8 mg/dL (0.2-1.0); Blood Urea Nitrogen 12 mg/dL (9-23); Carbon Dioxide 23 mmol/L (20-31); Glucose 86 mg/dL (74-106); Lipase 42 U/L (12-53); Sodium 139 mmol/L (136-145)
[2025-03-09 07:40] LABS: Hematocrit 38.4 % (36.0-46.0); Hemoglobin 13.3 g/dL (12.2-16.2); Mean Corpuscular Hemoglobin 31.8 pg (28.0-32.0); Mean Corpuscular Volume 92.0 fL (80.0-100.0); Nucleated Red Blood Cells % 0.0 %
[2025-03-09 07:44] LABS: Alanine Aminotransferase < 9 U/L (7-40); Calcium 7.8 mg/dL (8.7-10.4); Chloride 108 mmol/L (98-107); Potassium 3.1 mmol/L (3.5-5.1); Total Protein 5.7 g/dL (5.7-8.2)
[2025-03-09] MEDS: GASTROGRAFIN 120 ML SOL ONE (09:43)
--- NOTE | 2025-03-09 13:24 | DVHSR ---
APPROVED REPORT EXAM: Two-dimensional and M-mode echocardiogram with Doppler and color Doppler. Blood Pressure: 134/72 mmHg INDICATION Elevated tropes, hypertensive emergency RISK FACTORS Height: 60, Weight: 151 DIMENSIONS LVDd (3.8-5.7cm)LA (2D)3.9 (1.9-4.0cm)Aortic Root3.1 (2.0-3.7cm) LVDs (2.5-4.0cm)LA (MM) (1.9-4.0cm)Aortic Cusp Exc1.7 (1.5-2.0cm) EF (%) 66.0 (55-70%)Rt. Atrium3.9 (1.9-4.0cm)Asc. Aorta cm Mitral Valve MitralMitral Stenosis E wave0.89m/sMV Mean GR.mmHg A wave1.01m/sMV Peak GR.46mmHg E/A ratio0.92D MVAcm2 DECEL [id number] 1/2 [id number] IVRTmsDop MVA4.89cm2 Aortic Valve Aortic ValveAortic Stenosis V10.92m/Lisa Mean GR.3mmHg V21.20m/Lisa Peak GR.6mmHg LVOT Diameter2.2 (1.8-2.4cm)Doppler AVA2.91cm2 Pulmonic Valve V20.89m/s Conclusion lvef 65% normal rv fundction left atrium enlarged no severe valve abnormalities noted
--- NOTE | 2025-03-09 13:51 | DVH ---
Procedure: XY SMALL BOWEL SERIES-W GASTROGRA Exam Date: 03/09/2025 01:17 PM Reason for study/Clinical History: SBO versus ileus Comparison Study: None Technique: Single contrast small bowel series performed. Findings: Initial mechanical facilities technician view of the abdomen and pelvis appears demonstrates no acute process. Contrast is identified within the colon by 1 h. This represents a normal small bowel transit time. Small bowel loops are normal in size. Normal mucosal pattern. No evidence of small bowel obstructi on, stricture, or mucosal abnormality. The terminal ileum is well visualized and is unremarkable. IMPRESSION: Normal small bowel series. END IMPRESSION:
[2025-03-09] MEDS: POTASSIUM CHL 20MEQ/100ML 100 ML IV SCH (14:43)
--- NOTE | 2025-03-09 18:09 | DVHPNRES ---
Progress Note Date Seen: Mar 09, 2025 Resident Creating Document: GABE GARRETT RESIDENT Has the PT tested + for MRSA If YES, has PT been informed?: No Medical Necessity Reason Pt with a Central, PICC or Fol: Yes The following are medically ne: Central Line Subjective Review of Systems Patient 64-year-old female with hypertension, type 2 diabetes mellitus on insulin Basaglar 38 units, CAD status post stent 1 year back, multiple CVAs who presented to the ER with a chief complaint of abdominal pain for the past 2 months, associated with bloating, the pain has been therefore 2 months as sharp, not related to exertion, not related to food or fasting, she has been experiencing vomiting for the past night but otherwise denies diarrhea or constipation. No fever or chills. He abdomen showed colitis, repeat CT with IV contrast showed bilateral kidney stones, interstitial pancreatitis, high-grade renal artery stenosis. CT head showed old small frontal lobe infarct, age indeterminate left cerebellar infarct. Patient A1c was 12. WBC count has been increasing to 18 from 10 on arrival. Patient had good appetite but severe abdominal pain. Not passing gas. Last bowel movement was 03/05. 03/07 - Patient seen and examined in ER, downgraded to telemetry, started clear liquid diet, started lactated ringer 75 cc/hour, started amlodipine and Coreg, we will up titrate to control blood pressure, DC nicardipine drip, consider CT angio after kidney function improves and if pain persists. Lactic acid has resolved. GI evaluation pending. DALE worsening. Lipase increased to 900 03/08-patient seen and examined, not passing gas or BM. GI recommended a small bowel series. KUB shows ileus versus obstruction. 03/09 - underwent gastrographin, no obstruction, 2 bowel movements, lipase wnl Objective vital signs Vital Sign Date Time Temp Pulse Resp B/P (MAP) Pulse Ox O2 Delivery O2 Flow Rate FiO2 03/09/25 16:48 85 155/74 03/09/25 16:30 98.3 17 96 98.3 03/09/25 08:00 Room Air* 0 21 Total Intake and Output 03/08/25 03/08/25 03/09/25 15:00 23:00 07:00 Intake Total 250 ml 200 ml 1000 ml Balance 250 ml 200 ml 1000 ml medications Current Medications Medications Dose Ordered Sig/Maco Route Start Time Stop Time Status Last Admin Dose Admin Ceftriaxone Sodium 50 ml @ 100 mls/hr DAILY@09 IV 03/06/25 09:00 03/09/25 11:45 100 MLS/HR Metronidazole 100 ml @ 100 mls/hr Q8HR IV 03/06/25 14:00 03/09/25 13:22 100 MLS/HR Nystatin 1 applic BID TOP 03/06/25 10:00 03/09/25 11:47 1 APPLIC Lidocaine 1 patch DAILY TOP 03/06/25 10:00 03/09/25 11:45 1 PATCH Aspirin 81 mg DAILY PO 03/06/25 10:00 03/09/25 11:47 81 MG Enoxaparin Sodium 40 mg DAILY SC 03/07/25 10:00 03/09/25 11:46 40 MG Ticagrelor 90 mg BID PO 03/06/25 22:00 03/09/25 11:51 90 MG Nicardipine HCl 250 ml @ 50 mls/hr Q5H IV 03/06/25 15:15 Cancel Pantoprazole Sodium 40 mg BID IV 03/06/25 15:30 03/09/25 11:46 40 MG Amlodipine Besylate 10 mg DAILY PO 03/08/25 10:00 03/09/25 11:50 10 MG Insulin Glargine 20 units HS SC 03/07/25 22:00 03/08/25 21:52 20 UNITS Lactated Ringer's 1,000 ml @ 75 mls/hr [id number] IV 03/07/25 16:45 03/08/25 21:55 75 MLS/HR Carvedilol 12.5 mg Q12HR PO 03/07/25 22:00 03/09/25 11:51 12.5 MG Acetaminophen 650 mg Q4HP PRN PO 03/07/25 19:30 Examination Obese female patient lying in the bed, patient is hungry, well conversational General: Overweight, afebrile, palor, mucosae are moist Cardiovascular: Tachycardia but Regular S1 and S2. No murmurs, gallops or rubs. No JVD elevation. 1+ pitting pedal edema bilaterally Respiratory: Normal B/L air entry on room air. Clear lung sounds on auscultation Abdomen: Right lower quadrant and epigastric tenderness to palpation, hypoactive bowel sounds, no rebound tenderness, no organomegaly, no masses Genitourinary: Deferred MSK/skin: Mobilizes 4 limbs. Skin is dry and warm Neurological: No motor, no sensitive deficits, normal speech. Pupils are isocoric and reactive. Psych/Mental Status: A/Ox3 laboratory and microbiology Laboratory Tests 03/09/25 06:19 Test 03/09/25 06:19 Range/Units Serum Glucose 86 74-106 mg/dL Microbiology Date/Time Source Procedure Growth Status 03/06/25 07:03 Blood Blood Culture - Preliminary NO GROWTH AFTER 72 HOURS OF INCUBATION. Resulted 03/05/25 17:20 Voided Urine Urine Culture - Final Complete Labs and/or images reviewed: Labs reviewed by me, Image(s) reviewed by me Problem List/Assessment/Plan Problem List/Assessment/Plan NEURO: Acute toxic/metabolic encephalopathy due to opioid overdose? 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 EKG shows nonspecific ST changes, no STEMI Echocardiogram lvef 65%, left atrium enlarged GASTROINTESTINAL: Acute interstitial pancreatitis Rule out ischemic colitis Sepsis secondary to Colitis likely etiology infectious Lactated ringer 75 cc Clear liquid diet IV ceftriaxone and metronidazole GI consultation recommended a small bowel series with Gastrografin-stool studies pending - SMALL BOWEL SERIES-W GASTROGRA Normal small bowel series. lipase - 48->970->42 GENITOURINARY: Likely left Renal artery stenosis DALE likely contrast induced/NSAIDs Complicated Cystitis Bilateral renal calculi Creatinine trending down, GFR improving IV fluids METABOLIC: Uncontrolled Diabetes mellitus type 2-HGB A1c 12 Lantus 20 mg HS daily Moderate ISS INFECTIOUS DISEASE: Sepsis secondary to infectious colitis Blood culture negative, urine culture [id number] Gram-positive [place] DIET: Clear liquids DVT prophylax: Lovenox 40 mg sc daily GI prophylaxis: Protonix twice daily Bowel regimen: None Code status: Full code LINES/DRAINS/ACCESS: IV access: Right CBC IJ 03/06 Last bowel movement: 03/09 DISPOSITION: Telemetry Patient's status discussed with patient's daughter at bedside which all questions have been answered Goals care discussed with patient, patient's daughter full code status Critical care time spent more than 55 minutes, including patient care, chart review, and updating the family. Excluding any procedures Case discussed with Dr. Ghosh Plan discussed with: Patient My Orders My Orders Orders - GABE GARRETT Procedure Category Date Status Time Stool Wbc LAB 03/08/25 Logged 18:29 Stool Bacterial EVELYN 03/08/25 Uncollected Culture 18:29 Ova & Parasite Exam EVELYN 03/08/25 Uncollected 18:29 Echo 2d Mode Cardiac US 03/09/25 Resulted DOP 18:42 Small Bowel Series-W XY 03/09/25 Resulted Gastrogra 09:45 Strict I & O NANCY 03/09/25 In Process 11:54 Dietary Evaluation Review Comments: Nutrition Recommendation: 1) Advance to [facility] 45gm + cardiac diet 2) Refer Broom Worker for diabetes education Expected Outcomes/Goals: To meet >75% estimated needs Fu 2-3 days GABE GARRETT RESIDENT Mar 09, 2025 18:09
[2025-03-09] MEDS: HYDROcodone-ACET 5/325MG TAB PO PRN (22:10)
[2025-03-09 23:35] LABS: Urine Amorphous Crystal FEW /hpf (None Seen); Urine Budding Yeast MODERATE /hpf (None Seen); Urine Protein, UAD Negative (Negative)
[2025-03-10] VITALS (7 sets, daily range): BP systolic 106–153; BP diastolic 63–85; PULSE 73–81; RESP 15–20; TEMP 98–99.3; O2SAT 97–99
--- NOTE | 2025-03-10 10:01 | DVHPN2 ---
Progress Note - Dictate Date Seen: Mar 09, 2025 Has the PT tested + for MRSA If YES, has PT been informed?: No Medical Necessity Reason Pt with a Central, PICC or Fol: Yes The following are medically ne: Central Line Subjective STILL WITH ABDOMINAL PAIN. DENIES NAUSEA. HE IS NOT PASSING GAS vital signs Vital Sign Date Time Temp Pulse Resp B/P (MAP) Pulse Ox O2 Delivery O2 Flow Rate FiO2 03/10/25 08:59 79 153/78 03/10/25 08:00 99.3 16 98 99.3 03/09/25 20:00 Room Air* 0 21 Total Intake and Output 03/09/25 03/09/25 03/10/25 15:00 23:00 07:00 Intake Total 250 ml 100 ml 100 ml Balance 250 ml 100 ml 100 ml medications Current Medications Medications Dose Ordered Sig/Maco Route Start Time Stop Time Status Last Admin Dose Admin Ceftriaxone Sodium 50 ml @ 100 mls/hr DAILY@09 IV 03/06/25 09:00 03/10/25 09:19 100 MLS/HR Metronidazole 100 ml @ 100 mls/hr Q8HR IV 03/06/25 14:00 03/10/25 05:56 100 MLS/HR Nystatin 1 applic BID TOP 03/06/25 10:00 03/10/25 09:01 1 APPLIC Lidocaine 1 patch DAILY TOP 03/06/25 10:00 03/10/25 09:00 1 PATCH Aspirin 81 mg DAILY PO 03/06/25 10:00 03/10/25 08:59 81 MG Enoxaparin Sodium 40 mg DAILY SC 03/07/25 10:00 03/10/25 09:00 40 MG Ticagrelor 90 mg BID PO 03/06/25 22:00 03/10/25 08:59 90 MG Nicardipine HCl 250 ml @ 50 mls/hr Q5H IV 03/06/25 15:15 Cancel Pantoprazole Sodium 40 mg BID IV 03/06/25 15:30 03/10/25 09:00 40 MG Amlodipine Besylate 10 mg DAILY PO 03/08/25 10:00 03/10/25 08:59 10 MG Insulin Glargine 20 units HS SC 03/07/25 22:00 03/09/25 22:11 20 UNITS Lactated Ringer's 1,000 ml @ 75 mls/hr [id number] IV 03/07/25 16:45 03/09/25 22:13 75 MLS/HR Carvedilol 12.5 mg Q12HR PO 03/07/25 22:00 03/10/25 08:59 12.5 MG Acetaminophen 650 mg Q4HP PRN PO 03/07/25 19:30 Acetaminophen/ Hydrocodone Bitart 1 tab Q4HPRN PRN PO 03/09/25 20:45 03/10/25 08:58 1 TAB laboratory and microbiology Laboratory Tests 03/09/25 06:19 Test 03/09/25 06:19 Range/Units Serum Glucose 86 74-106 mg/dL Problem List 1. LEUKOCYTOSIS 2. ABDOMINAL PAIN 3. ABNORMAL IMAGING GI TRACT 4. PANCREATITIS 5. SUSPECTED SMALL-BOWEL OBSTRUCTION, SMALL-BOWEL FOLLOW-THROUGH WAS NEGATIVE Assessment/Plan PATIENT'S SYMPTOMS LIKELY DUE TO PANCREATITIS, QUESTIONABLE RENAL ARTERY STENOSIS, SMALL-BOWEL FOLLOW-THROUGH NEGATIVE FOR OBSTRUCTION LEUKOCYTOSIS MAY BE SECONDARY TO PANCREATITIS VERSUS INFECTION PATIENT MAY ALSO HAVE ISCHEMIC COLITIS Problems(with codes): (1) Colitis (2) Sepsis (3) UTI (urinary tract infection) (4) Hypertensive urgency Prognosis 1. . CONTINUE CURRENT MEDICATIONS ANTIBIOTICS 2. HOLD OFF ON COLONOSCOPY AT THIS TIME 3. WE WILL FOLLOW 4. FOLLOW LABS 5. PAIN CONTROL 6. DIET TOLERATED 7. IF NO IMPROVEMENT CONSIDER COLONOSCOPY AND/OR SURGICAL CONSULTATION Dietary Evaluation Review Comments: Nutrition Recommendation: 1) Advance to [facility] 45gm + cardiac diet 2) Refer Clinical Team Lead for diabetes education Expected Outcomes/Goals: To meet >75% estimated needs Fu 2-3 days Plan discussed with: Patient CARLOS BURGESS MD Mar 10, 2025 10:01
[2025-03-10 11:15] LABS: Hematocrit 38.6 % (36.0-46.0); Hemoglobin 13.2 g/dL (12.2-16.2); Mean Corpuscular Hemoglobin 32.0 pg (28.0-32.0); Mean Corpuscular Volume 93.3 fL (80.0-100.0); Nucleated Red Blood Cells % 0.0 %
[2025-03-10 11:27] LABS: Chloride 106 mmol/L (98-107); Sodium 139 mmol/L (136-145)
[2025-03-10 11:28] LABS: Anion Gap 10 (5-15); Carbon Dioxide 23 mmol/L (20-31)
[2025-03-10 11:33] LABS: BUN/Creatinine Ratio 12.5 (10.0-20.0); Blood Urea Nitrogen 12 mg/dL (9-23)
[2025-03-10 11:47] LABS: Calcium 7.8 mg/dL (8.7-10.4); Glucose 157 mg/dL (74-106); Magnesium 1.6 mg/dL (1.6-2.6); Potassium 3.0 mmol/L (3.5-5.1)
--- NOTE | 2025-03-10 15:41 | DVHPN2 ---
Subjective The patient is seen and examined at bedside. No change overnight. Reviewed: Care Plan, H&P, Labs, Medications, Previous Orders, Radiology Changes from previous H/P or p: No Changes Eyes: No Pain, No Vision change, No Conjunctivae inflammation, No Eyelid inflammation, No Other, No Redness ENT: No Ear pain, No Ear discharge, No Nose pain, No Nose discharge, No Nose congestion, No Mouth pain, No Mouth swelling, No Throat pain, No Throat swelling, No Other Cardiovascular: No Chest Pain, No Palpitations, No Orthopnea, No Paroxysmal Noc. Dyspnea, No Edema, No Lt Headedness, No Other Respiratory: No Cough, No Dry, No Shortness of breath, No SOB with excertion, No Wheezing, No Hemoptysis, No Pleuritic Pain, No Sputum, No Other Gastrointestinal: No Nausea, No Vomiting; Abdominal Pain; No Diarrhea, No Constipation, No Melena, No Hematochezia, No Other Genitourinary: No Dysuria, No Frequency, No Incontinence, No Hematuria, No Retention, No Other Musculoskeletal: No other, No neck pain, No shoulder pain, No arm pain, No back pain, No hand pain, No leg pain, No foot pain Skin: No Rash, No Lesions, No Jaundice, No Bruising, No Other Objective Vitals Vital Signs Date Time Temp Pulse Resp B/P (MAP) Pulse Ox O2 Delivery O2 Flow Rate FiO2 03/10/25 12:10 98.8 74 17 106/63 (77) 97 98.8 03/10/25 08:00 Room Air* 0 21 Intake/Output Intake and Output 03/10/25 07:00 Intake Total 550 ml Balance 550 ml IV Total 550 ml General Appearance: Alert, Cooperative, No acute distress HEENT: Atraumatic, PERRLA, EOMI, Mucous membr. moist/pink Neck: Supple Lungs: Clear to auscultation, Normal air movement Cardiovascular: Regular rate, Normal S1, Normal S2, No murmurs, Gallops, Rubs Abdomen: Normal bowel sounds, Soft Neuro: Cranial nerves 3-12 NL Psych/Mental Status: Mental status NL Medications Current Medications Medications Dose Ordered Sig/Maco Route Start Time Stop Time Status Last Admin Dose Admin Ceftriaxone Sodium 50 ml @ 100 mls/hr DAILY@09 IV 03/06/25 09:00 03/10/25 09:19 100 MLS/HR Metronidazole 100 ml @ 100 mls/hr Q8HR IV 03/06/25 14:00 03/10/25 13:26 100 MLS/HR Nystatin 1 applic BID TOP 03/06/25 10:00 03/10/25 09:01 1 APPLIC Lidocaine 1 patch DAILY TOP 03/06/25 10:00 03/10/25 09:00 1 PATCH Aspirin 81 mg DAILY PO 03/06/25 10:00 03/10/25 08:59 81 MG Enoxaparin Sodium 40 mg DAILY SC 03/07/25 10:00 03/10/25 09:00 40 MG Ticagrelor 90 mg BID PO 03/06/25 22:00 03/10/25 08:59 90 MG Nicardipine HCl 250 ml @ 50 mls/hr Q5H IV 03/06/25 15:15 Cancel Pantoprazole Sodium 40 mg BID IV 03/06/25 15:30 03/10/25 09:00 40 MG Amlodipine Besylate 10 mg DAILY PO 03/08/25 10:00 03/10/25 08:59 10 MG Insulin Glargine 20 units HS SC 03/07/25 22:00 03/09/25 22:11 20 UNITS Lactated Ringer's 1,000 ml @ 75 mls/hr [id number] IV 03/07/25 16:45 03/09/25 22:13 75 MLS/HR Carvedilol 12.5 mg Q12HR PO 03/07/25 22:00 03/10/25 08:59 12.5 MG Acetaminophen 650 mg Q4HP PRN PO 03/07/25 19:30 Acetaminophen/ Hydrocodone Bitart 1 tab Q4HPRN PRN PO 03/09/25 20:45 03/10/25 08:58 1 TAB Laboratory Results Laboratory Tests 03/10/25 10:40 Chemistry Test 03/10/25 10:40 Calcium Level 7.8 mg/dL (8.7-10.4) L Magnesium Level 1.6 mg/dL (1.6-2.6) Urinalysis Test 03/09/25 23:10 Urine Color Yellow (Yellow) Urine Clarity Turbid (Clear) H Urine pH 6.0 (5.0-9.0) Urine Specific [place] 1.012 (1.001-1.035) Urine Protein Negative (Negative) Urine Ketones Trace (Negative) Urine Blood 1+ /uL (Negative) H Urine Nitrite Negative (Negative) Urine Bilirubin 1+ (Negative) H Urine Urobilinogen Normal mg/dL (Negative) Urine Leukocyte Esterase Trace /uL (Negative) Urine RBC 41 /hpf (0 - 4) Urine Microscopic WBC 1 /HPF (0-5) Urine Squamous Epithelial Cells Few /hpf (<5) Urine Amorphous Crystals Few /hpf (None Seen) Urine Bacteria Few /hpf (None Seen) H Urine Mucus Few (None Seen) Urine Yeast (Budding) Moderate /hpf (None Seen) Urine Glucose 4+ mg/dL (Normal) H Microbiology Microbiology Date/Time Source Procedure Growth Status 03/06/25 07:03 Blood Blood Culture - Preliminary NO GROWTH AFTER 72 HOURS OF INCUBATION. Resulted 03/05/25 17:20 Voided Urine Urine Culture - Final Complete Assessment/Plan Assessment/Plan NEURO: Acute toxic/metabolic encephalopathy due to opioid overdose? 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 EKG shows nonspecific ST changes, no STEMI Echocardiogram lvef 65%, left atrium enlarged GASTROINTESTINAL: Acute interstitial pancreatitis Rule out ischemic colitis Sepsis secondary to Colitis likely etiology infectious Lactated ringer 75 cc Clear liquid diet IV ceftriaxone and metronidazole GI consultation recommended a small bowel series with Gastrografin-stool studies pending - SMALL BOWEL SERIES-W GASTROGRA Normal small bowel series. lipase - 48->970->42 GENITOURINARY: Likely left Renal artery stenosis DALE likely contrast induced/NSAIDs Complicated Cystitis Bilateral renal calculi Creatinine trending down, GFR improving IV fluids METABOLIC: Uncontrolled Diabetes mellitus type 2-HGB A1c 12 Lantus 20 mg HS daily Moderate ISS INFECTIOUS DISEASE: Sepsis secondary to infectious colitis Blood culture negative, urine culture [id number] Gram-positive [place] DIET: Clear liquids DVT prophylax: Lovenox 40 mg sc daily GI prophylaxis: Protonix twice daily Bowel regimen: None Code status: Full code LINES/DRAINS/ACCESS: IV access: Right CBC IJ 03/06 Last bowel movement: 03/09 This medical document was created using an electronic medical record system with [employer] direct computerized dictation system. Although this document has been carefully reviewed, there may still be some phonetic and typographical errors. These areas are purely typographical due to imperfections of the software programs, and do not reflect any compromise in the patient's medical care. Plan discussed with: Other (Rn) Date of Service: Mar 10, 2025 Billing Provider: KAVYA WANG MD Common Visit Codes: [id number] INP/OBS CARE(HIGH) KAVYA WANG MD Mar 10, 2025 15:41
[2025-03-10] MEDS: POTASSIUM CHL 20MEQ/100ML 100 ML IV SCH (16:18)
[2025-03-11] VITALS (8 sets, daily range): BP systolic 115–159; BP diastolic 57–86; PULSE 68–84; RESP 15–17; TEMP 97.4–98.5; O2SAT 96–99
[2025-03-11] MEDS: POTASSIUM CHL 20MEQ/100ML 100 ML IV SCH (00:35)
[2025-03-11] MEDS: ACETAMINOPHEN 325 MG TAB PO PRN (01:26)
--- NOTE | 2025-03-11 11:27 | DVHPN2 ---
Subjective The patient is seen and examined at bedside. No change overnight. Reviewed: Care Plan, H&P, Labs, Medications, Previous Orders, Radiology Changes from previous H/P or p: No Changes Eyes: No Pain, No Vision change, No Conjunctivae inflammation, No Eyelid inflammation, No Other, No Redness ENT: No Ear pain, No Ear discharge, No Nose pain, No Nose discharge, No Nose congestion, No Mouth pain, No Mouth swelling, No Throat pain, No Throat swelling, No Other Cardiovascular: No Chest Pain, No Palpitations, No Orthopnea, No Paroxysmal Noc. Dyspnea, No Edema, No Lt Headedness, No Other Respiratory: No Cough, No Dry, No Shortness of breath, No SOB with excertion, No Wheezing, No Hemoptysis, No Pleuritic Pain, No Sputum, No Other Gastrointestinal: No Nausea, No Vomiting; Abdominal Pain; No Diarrhea, No Constipation, No Melena, No Hematochezia, No Other Genitourinary: No Dysuria, No Frequency, No Incontinence, No Hematuria, No Retention, No Other Musculoskeletal: No other, No neck pain, No shoulder pain, No arm pain, No back pain, No hand pain, No leg pain, No foot pain Skin: No Rash, No Lesions, No Jaundice, No Bruising, No Other Objective Vitals Vital Signs Date Time Temp Pulse Resp B/P (MAP) Pulse Ox O2 Delivery O2 Flow Rate FiO2 03/11/25 09:15 155/80 03/11/25 09:14 70 03/11/25 08:48 97.4 17 96 97.4 03/11/25 08:00 Room Air* 0 21 Intake/Output Intake and Output 03/11/25 07:00 Intake Total 2034 ml Balance 2034 ml Intake Oral 584 ml IV Total 1450 ml General Appearance: Alert, Cooperative, No acute distress HEENT: Atraumatic, PERRLA, EOMI, Mucous membr. moist/pink Neck: Supple Lungs: Clear to auscultation, Normal air movement Cardiovascular: Regular rate, Normal S1, Normal S2, No murmurs, Gallops, Rubs Abdomen: Normal bowel sounds, Soft Neuro: Cranial nerves 3-12 NL Psych/Mental Status: Mental status NL Medications Current Medications Medications Dose Ordered Sig/Maco Route Start Time Stop Time Status Last Admin Dose Admin Ceftriaxone Sodium 50 ml @ 100 mls/hr DAILY@09 IV 03/06/25 09:00 03/11/25 09:14 100 MLS/HR Metronidazole 100 ml @ 100 mls/hr Q8HR IV 03/06/25 14:00 03/11/25 05:50 100 MLS/HR Nystatin 1 applic BID TOP 03/06/25 10:00 03/10/25 21:32 1 APPLIC Lidocaine 1 patch DAILY TOP 03/06/25 10:00 03/11/25 09:23 1 PATCH Aspirin 81 mg DAILY PO 03/06/25 10:00 03/11/25 09:14 81 MG Enoxaparin Sodium 40 mg DAILY SC 03/07/25 10:00 03/11/25 09:15 40 MG Ticagrelor 90 mg BID PO 03/06/25 22:00 03/11/25 09:14 90 MG Nicardipine HCl 250 ml @ 50 mls/hr Q5H IV 03/06/25 15:15 Cancel Pantoprazole Sodium 40 mg BID IV 03/06/25 15:30 03/11/25 09:14 40 MG Amlodipine Besylate 10 mg DAILY PO 03/08/25 10:00 03/11/25 09:15 10 MG Insulin Glargine 20 units HS SC 03/07/25 22:00 03/10/25 21:58 20 UNITS Lactated Ringer's 1,000 ml @ 75 mls/hr [id number] IV 03/07/25 16:45 03/11/25 05:50 75 MLS/HR Carvedilol 12.5 mg Q12HR PO 03/07/25 22:00 03/11/25 09:14 12.5 MG Acetaminophen 650 mg Q4HP PRN PO 03/07/25 19:30 03/11/25 01:26 650 MG Acetaminophen/ Hydrocodone Bitart 1 tab Q4HPRN PRN PO 03/09/25 20:45 03/11/25 00:15 1 TAB Laboratory Results Laboratory Tests 03/10/25 10:40 Urinalysis Test 03/09/25 23:10 Urine Color Yellow (Yellow) Urine Clarity Turbid (Clear) H Urine pH 6.0 (5.0-9.0) Urine Specific [place] 1.012 (1.001-1.035) Urine Protein Negative (Negative) Urine Ketones Trace (Negative) Urine Blood 1+ /uL (Negative) H Urine Nitrite Negative (Negative) Urine Bilirubin 1+ (Negative) H Urine Urobilinogen Normal mg/dL (Negative) Urine Leukocyte Esterase Trace /uL (Negative) Urine RBC 41 /hpf (0 - 4) Urine Microscopic WBC 1 /HPF (0-5) Urine Squamous Epithelial Cells Few /hpf (<5) Urine Amorphous Crystals Few /hpf (None Seen) Urine Bacteria Few /hpf (None Seen) H Urine Mucus Few (None Seen) Urine Yeast (Budding) Moderate /hpf (None Seen) Urine Glucose 4+ mg/dL (Normal) H Microbiology Microbiology Date/Time Source Procedure Growth Status 03/06/25 07:03 Blood Blood Culture - Final NO GROWTH AFTER 5 DAYS OF INCUBATION. Complete 03/05/25 17:20 Voided Urine Urine Culture - Final Complete Labs and/or images reviewed: Labs reviewed by me Assessment/Plan Assessment/Plan NEURO: Acute toxic/metabolic encephalopathy due to opioid overdose? 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 EKG shows nonspecific ST changes, no STEMI Echocardiogram lvef 65%, left atrium enlarged GASTROINTESTINAL: Acute interstitial pancreatitis Rule out ischemic colitis Sepsis secondary to Colitis likely etiology infectious Lactated ringer 75 cc Clear liquid diet IV ceftriaxone and metronidazole GI consultation recommended a small bowel series with Gastrografin-stool studies pending - SMALL BOWEL SERIES-W GASTROGRA Normal small bowel series. lipase - 48->970->42 GENITOURINARY: Likely left Renal artery stenosis DALE likely contrast induced/NSAIDs Complicated Cystitis Bilateral renal calculi Creatinine trending down, GFR improving IV fluids METABOLIC: Uncontrolled Diabetes mellitus type 2-HGB A1c 12 Lantus 20 mg HS daily Moderate ISS INFECTIOUS DISEASE: Sepsis secondary to infectious colitis Blood culture negative, urine culture [id number] Gram-positive [place] DIET: Clear liquids DVT prophylax: Lovenox 40 mg sc daily GI prophylaxis: Protonix twice daily Bowel regimen: None Code status: Full code LINES/DRAINS/ACCESS: IV access: Right CBC IJ 03/06 Last bowel movement: 03/09 This medical document was created using an electronic medical record system with [employer] direct computerized dictation system. Although this document has been carefully reviewed, there may still be some phonetic and typographical errors. These areas are purely typographical due to imperfections of the software programs, and do not reflect any compromise in the patient's medical care. Plan discussed with: Other (RN) My Orders Orders - KAVYA WANG MD Procedure Category Date Status Time Full Liq Diet DIET 03/10/25 Transmitted Dinner Date of Service: Mar 11, 2025 Billing Provider: KAVYA WANG MD Common Visit Codes: [id number] INP/OBS CARE(HIGH) KAVYA WANG MD Mar 11, 2025 11:27
[2025-03-11 17:16] LABS: Chloride 105 mmol/L (98-107); Sodium 138 mmol/L (136-145)
[2025-03-11 17:17] LABS: Anion Gap 10 (5-15); Carbon Dioxide 23 mmol/L (20-31)
[2025-03-11 17:22] LABS: BUN/Creatinine Ratio 10.2 (10.0-20.0)
[2025-03-11 17:26] LABS: Blood Urea Nitrogen 9 mg/dL (9-23); Calcium 7.9 mg/dL (8.7-10.4); Glucose 205 mg/dL (74-106); Potassium 3.1 mmol/L (3.5-5.1)
[2025-03-11] MEDS: KETOROLAC TROMETH 30 MG/ML 1ML VIAL IV ONE (21:58)
[2025-03-12] VITALS (8 sets, daily range): BP systolic 128–172; BP diastolic 66–99; PULSE 77–94; RESP 14–19; TEMP 97.8–98.6; O2SAT 97–98
[2025-03-12 06:23] LABS: Anion Gap 9 (5-15); Carbon Dioxide 22 mmol/L (20-31); Potassium 3.6 mmol/L (3.5-5.1); Sodium 140 mmol/L (136-145)
[2025-03-12 06:29] LABS: BUN/Creatinine Ratio 8.9 (10.0-20.0)
[2025-03-12 06:30] LABS: Blood Urea Nitrogen 8 mg/dL (9-23); Calcium 7.8 mg/dL (8.7-10.4); Chloride 109 mmol/L (98-107); Glucose 143 mg/dL (74-106)
--- NOTE | 2025-03-12 10:04 | DVH ---
Date: 03/12/2025 09:08 AM Examination: XY KUB ABDOMEN SINGLE VIEW History: no flatus Comparison: XY SMALL BOWEL SERIES-W GASTROGRA on DOS: 03/09/25, XY KUB ABDOMEN SINGLE VIEW on DOS: , US RENAL ARTERY LMTD on DOS: 03/07/25, CT CT AB PELVIS W WO CON-IV ONLY on DOS: 03/07/25, CT CT AB PE L WO CON-NO ORAL OR IV on DOS: 03/05/25 TECHNIQUE: Frontal views of the abdomen was obtained. FINDINGS: Bowel gas pattern is unremarkable. The lung bases are unremarkable. No acute osseous abnormality identified. IMPRESSION: Nonobstructive bowel gas pattern.
[2025-03-12] MEDS: SIMETHICONE 80 MG CHEWABLE TABLET PO ONE (13:10)
[2025-03-12] MEDS ORDERED: DEXTROSE (50%) 50ML SYRG IV PRN (16:45)
[2025-03-12] MEDS: ACCU-CHEK COMFORT CURVE STRIP VI SCH (17:43)
[2025-03-12] MEDS: InsuLIN REG 1unit/0.01ml Soln (100units/ml) SC SCH ×2 (17:45→21:19)
--- NOTE | 2025-03-12 20:01 | DVHPNRES ---
Progress Note Date Seen: Mar 12, 2025 Resident Creating Document: GABE GARRETT RESIDENT Has the PT tested + for MRSA If YES, has PT been informed?: No Medical Necessity Reason Pt with a Central, PICC or Fol: No Subjective Review of Systems Patient 64-year-old female with hypertension, type 2 diabetes mellitus on insulin Basaglar 38 units, CAD status post stent 1 year back, multiple CVAs who presented to the ER with a chief complaint of abdominal pain for the past 2 months, associated with bloating, the pain has been therefore 2 months as sharp, not related to exertion, not related to food or fasting, she has been experiencing vomiting for the past night but otherwise denies diarrhea or constipation. No fever or chills. He abdomen showed colitis, repeat CT with IV contrast showed bilateral kidney stones, interstitial pancreatitis, high-grade renal artery stenosis. CT head showed old small frontal lobe infarct, age indeterminate left cerebellar infarct. Patient A1c was 12. WBC count has been increasing to 18 from 10 on arrival. Patient had good appetite but severe abdominal pain. Not passing gas. Last bowel movement was 03/05. 03/07 - Patient seen and examined in ER, downgraded to telemetry, started clear liquid diet, started lactated ringer 75 cc/hour, started amlodipine and Coreg, we will up titrate to control blood pressure, DC nicardipine drip, consider CT angio after kidney function improves and if pain persists. Lactic acid has resolved. GI evaluation pending. DALE worsening. Lipase increased to 900 03/08-patient seen and examined, not passing gas or BM. GI recommended a small bowel series. KUB shows ileus versus obstruction. 03/09 - underwent gastrographin, no obstruction, 2 bowel movements, lipase wnl 03/12-patient seen and examined, reports similar abdominal pain, but passing gas and bowel movements [address] angio abdominal ordered. Objective vital signs Vital Sign Date Time Temp Pulse Resp B/P (MAP) Pulse Ox O2 Delivery O2 Flow Rate FiO2 03/12/25 17:00 98.0 82 19 150/82 (104) 98 98.0 03/12/25 08:00 Room Air* 0 21 Total Intake and Output 03/11/25 03/11/25 03/12/25 15:00 23:00 07:00 Intake Total 50 ml 580 ml 100 ml Balance 50 ml 580 ml 100 ml medications Current Medications Medications Dose Ordered Sig/Maco Route Start Time Stop Time Status Last Admin Dose Admin Ceftriaxone Sodium 50 ml @ 100 mls/hr DAILY@09 IV 03/06/25 09:00 03/12/25 09:29 100 MLS/HR Metronidazole 100 ml @ 100 mls/hr Q8HR IV 03/06/25 14:00 03/12/25 14:06 100 MLS/HR Nystatin 1 applic BID TOP 03/06/25 10:00 03/10/25 21:32 1 APPLIC Lidocaine 1 patch DAILY TOP 03/06/25 10:00 03/12/25 09:32 1 PATCH Aspirin 81 mg DAILY PO 03/06/25 10:00 03/12/25 09:30 81 MG Enoxaparin Sodium 40 mg DAILY SC 03/07/25 10:00 03/12/25 09:32 40 MG Ticagrelor 90 mg BID PO 03/06/25 22:00 03/12/25 09:30 90 MG Nicardipine HCl 250 ml @ 50 mls/hr Q5H IV 03/06/25 15:15 Cancel Pantoprazole Sodium 40 mg BID IV 03/06/25 15:30 03/12/25 09:30 40 MG Amlodipine Besylate 10 mg DAILY PO 03/08/25 10:00 03/12/25 09:31 10 MG Insulin Glargine 20 units HS SC 03/07/25 22:00 03/11/25 21:44 20 UNITS Carvedilol 12.5 mg Q12HR PO 03/07/25 22:00 03/12/25 09:31 12.5 MG Acetaminophen 650 mg Q4HP PRN PO 03/07/25 19:30 03/11/25 01:26 650 MG Acetaminophen/ Hydrocodone Bitart 1 tab Q4HPRN PRN PO 03/09/25 20:45 03/12/25 09:39 1 TAB Diagnostic Test (Pha) 1 strip ACHS 03/12/25 17:00 03/12/25 17:43 1 STRIP Insulin Human Regular HS SC 03/12/25 22:00 Insulin Human Regular AC SC 03/12/25 17:00 03/12/25 17:45 3 UNITS Dextrose 50 ml UD PRN IV 03/12/25 16:45 Examination Obese female patient lying in the bed, patient is hungry, well conversational General: Overweight, afebrile, palor, mucosae are moist Cardiovascular: Tachycardia but Regular S1 and S2. No murmurs, gallops or rubs. No JVD elevation. 1+ pitting pedal edema bilaterally Respiratory: Normal B/L air entry on room air. Clear lung sounds on auscultation Abdomen: Right lower quadrant and epigastric tenderness to palpation, normoactive to hyperactive bowel sounds, no rebound tenderness, no organomegaly, no masses Genitourinary: Deferred MSK/skin: Mobilizes 4 limbs. Skin is dry and warm Neurological: No motor, no sensitive deficits, normal speech. Pupils are isocoric and reactive. Psych/Mental Status: A/Ox3 laboratory and microbiology Laboratory Tests 03/12/25 05:40 03/10/25 10:40 Test 03/12/25 05:40 Range/Units Serum Glucose 143 H 74-106 mg/dL Microbiology Date/Time Source Procedure Growth Status 03/06/25 07:03 Blood Blood Culture - Final NO GROWTH AFTER 5 DAYS OF INCUBATION. Complete 03/05/25 17:20 Voided Urine Urine Culture - Final Complete Labs and/or images reviewed: Labs reviewed by me, Image(s) reviewed by me Problem List/Assessment/Plan Problem List/Assessment/Plan NEURO: Acute toxic/metabolic encephalopathy due to opioid overdose? 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 EKG shows nonspecific ST changes, no STEMI Echocardiogram lvef 65%, left atrium enlarged GASTROINTESTINAL: Acute interstitial pancreatitis Rule out ischemic colitis Sepsis secondary to Colitis likely etiology infectious Lactated ringer 75 cc Full liquid diet IV ceftriaxone and metronidazole GI consultation recommended a small bowel series with Gastrografin-stool studies pending - SMALL BOWEL SERIES-W GASTROGRA Normal small bowel series. lipase - 48->970->42 CT angio abdomen panel GENITOURINARY: Likely left Renal artery stenosis DALE likely contrast induced/NSAIDs Complicated Cystitis Bilateral renal calculi Creatinine trending down, GFR improving IV fluids METABOLIC: Uncontrolled Diabetes mellitus type 2-HGB A1c 12 Lantus 20 mg HS daily Moderate ISS INFECTIOUS DISEASE: Sepsis secondary to infectious colitis Blood culture negative, urine culture [id number] Gram-positive [place] DIET: Full liquids DVT prophylax: Lovenox 40 mg sc daily GI prophylaxis: Protonix twice daily Bowel regimen: None Code status: Full code LINES/DRAINS/ACCESS: IV access: Discontinued Right CBC IJ 03/06 till 03/12 Last bowel movement: 03/12 DISPOSITION: Telemetry Patient's status discussed with patient's daughter at bedside which all questions have been answered Goals care discussed with patient, patient's daughter full code status Critical care time spent more than 49 minutes, including patient care, chart review, and updating the family. Excluding any procedures Case discussed with Dr. Guan Plan discussed with: Patient My Orders My Orders Orders - GABE GARRETT Procedure Category Date Status Time Stool Bacterial EVELYN 03/08/25 In Process Culture 18:29 Ova & Parasite Exam EVELYN 03/08/25 Logged 18:29 Kub Abdomen Single XY 03/12/25 Resulted View 09:02 Electrocardigram EKG 03/12/25 Logged 17:50 Dietary Evaluation Review Comments: Nutrition Recommendation: 1) Advance to [facility] 45gm + cardiac diet 2) Refer Camp Att[employer] for diabetes education Expected Outcomes/Goals: To meet >75% estimated needs Fu 2-3 days Date of Service: Mar 12, 2025 Billing Provider: MONIQUE GUAN MD Common Visit Codes: [id number] CARE 30-74 MIN GABE GARRETT Mar 12, 2025 20:01 MONIQUE GUAN MD Mar 13, 2025 16:12
[2025-03-13] VITALS (8 sets, daily range): BP systolic 118–172; BP diastolic 64–87; PULSE 72–98; RESP 17–20; TEMP 97.2–98.9; O2SAT 96–98
[2025-03-13] MEDS: IOHEXOL 350 MG/ML 100ML IJ ONE (00:33)
[2025-03-13 07:05] LABS: Hematocrit 35.5 % (36.0-46.0); Hemoglobin 12.5 g/dL (12.2-16.2); Mean Corpuscular Hemoglobin 32.0 pg (28.0-32.0); Mean Corpuscular Volume 91.4 fL (80.0-100.0); Nucleated Red Blood Cells % 0.1 %
[2025-03-13 07:17] LABS: Anion Gap 9 (5-15); Carbon Dioxide 24 mmol/L (20-31); Chloride 107 mmol/L (98-107); Sodium 140 mmol/L (136-145)
[2025-03-13 07:23] LABS: BUN/Creatinine Ratio 6.3 (10.0-20.0)
[2025-03-13 07:25] LABS: Blood Urea Nitrogen 6 mg/dL (9-23); Calcium 7.9 mg/dL (8.7-10.4); Glucose 122 mg/dL (74-106); Magnesium 1.6 mg/dL (1.6-2.6); Potassium 3.3 mmol/L (3.5-5.1)
--- NOTE | 2025-03-13 07:59 | ECG ---
[facility] Test Date: 2025-03-12 Test Time: 16:57:32 Pat Name: SHELLIE VAZQUEZ Department: Room: 0294 Gender: F Eye Surgeon: AMANDA : 1960 Requested By: GABE GARRETT Order Number: [id number] Reading MD: Elio Patel Measurements Intervals [place] Rate: 82 P: 53 IN: 153 QRS: 42 QRSD: 87 T: 59 QT: 372 QTc: 435 Interpretive Statements Sinus rhythm Borderline low voltage, extremity leads Anteroseptal infarct, old Borderline repolarization abnormality Baseline wander in lead(s) V2 Electronically Signed On 03-20-2025 18:02:01 PDT by Elio Patel Please click the below link to view image of tracing.
[2025-03-13] MEDS: BACLOFEN 10 MG TAB PO ONE (12:20)
--- NOTE | 2025-03-13 15:55 | DVHPN2 ---
Progress Note Date Seen: Mar 13, 2025 Resident Creating Document: CARMEN PETERSEN RESIDENT Has the PT tested + for MRSA If YES, has PT been informed?: No Medical Necessity Reason Pt with a Central, PICC or Fol: No Subjective Review of Systems Patient seen and examined at bedside Continues to complain of abdominal pain Is able to pass gas and bowel movement Objective vital signs Vital Sign Date Time Temp Pulse Resp B/P (MAP) Pulse Ox O2 Delivery O2 Flow Rate FiO2 03/13/25 13:00 73 118/64 03/13/25 12:59 97.4 18 97 97.4 03/13/25 08:00 Room Air* 0 21 Total Intake and Output 03/12/25 03/12/25 03/13/25 15:00 23:00 07:00 Intake Total 275 ml 200 ml 100 ml Balance 275 ml 200 ml 100 ml medications Current Medications Medications Dose Ordered Sig/Maco Route Start Time Stop Time Status Last Admin Dose Admin Ceftriaxone Sodium 50 ml @ 100 mls/hr DAILY@09 IV 03/06/25 09:00 03/13/25 09:20 100 MLS/HR Metronidazole 100 ml @ 100 mls/hr Q8HR IV 03/06/25 14:00 03/13/25 15:22 100 MLS/HR Nystatin 1 applic BID TOP 03/06/25 10:00 03/12/25 22:00 1 APPLIC Lidocaine 1 patch DAILY TOP 03/06/25 10:00 03/12/25 09:32 1 PATCH Aspirin 81 mg DAILY PO 03/06/25 10:00 03/13/25 09:04 81 MG Enoxaparin Sodium 40 mg DAILY SC 03/07/25 10:00 03/13/25 09:05 40 MG Ticagrelor 90 mg BID PO 03/06/25 22:00 03/13/25 09:03 90 MG Nicardipine HCl 250 ml @ 50 mls/hr Q5H IV 03/06/25 15:15 Cancel Pantoprazole Sodium 40 mg BID IV 03/06/25 15:30 03/13/25 09:01 40 MG Amlodipine Besylate 10 mg DAILY PO 03/08/25 10:00 03/13/25 09:02 10 MG Insulin Glargine 20 units HS SC 03/07/25 22:00 03/12/25 21:19 20 UNITS Carvedilol 12.5 mg Q12HR PO 03/07/25 22:00 03/13/25 09:03 12.5 MG Acetaminophen 650 mg Q4HP PRN PO 03/07/25 19:30 03/11/25 01:26 650 MG Acetaminophen/ Hydrocodone Bitart 1 tab Q4HPRN PRN PO 03/09/25 20:45 03/13/25 09:20 1 TAB Diagnostic Test (Pha) 1 strip ACHS 03/12/25 17:00 03/13/25 11:30 1 STRIP Insulin Human Regular HS SC 03/12/25 22:00 03/12/25 21:19 3 UNITS Insulin Human Regular AC SC 03/12/25 17:00 03/13/25 12:22 9 UNITS Dextrose 50 ml UD PRN IV 03/12/25 16:45 Examination General: Overweight, afebrile, palor, mucosae are moist Cardiovascular: Tachycardia but Regular S1 and S2. No murmurs, gallops or rubs. No JVD elevation. 1+ pitting pedal edema bilaterally Respiratory: Normal B/L air entry on room air. Clear lung sounds on auscultation Abdomen: Right lower quadrant and epigastric tenderness to palpation, normoactive to hyperactive bowel sounds, no rebound tenderness, no organomegaly, no masses Genitourinary: Deferred MSK/skin: Mobilizes 4 limbs. Skin is dry and warm Neurological: No motor, no sensitive deficits, normal speech. Pupils are isocoric and reactive. Psych/Mental Status: A/Ox3 laboratory and microbiology Laboratory Tests 03/13/25 06:25 Test 03/13/25 06:25 Range/Units Serum Glucose 122 H 74-106 mg/dL Microbiology Date/Time Source Procedure Growth Status 03/12/25 15:10 Stool Stool Culture - Preliminary Resulted 03/12/25 15:10 Stool Shiga Toxin I & II - Final Resulted 03/06/25 07:03 Blood Blood Culture - Final NO GROWTH AFTER 5 DAYS OF INCUBATION. Complete 03/05/25 17:20 Voided Urine Urine Culture - Final Complete Labs and/or images reviewed: Labs reviewed by me, Image(s) reviewed by me Problem List/Assessment/Plan Problem List/Assessment/Plan Acute pancreatitis Acute intractable abdominal pain Rule out ischemic colitis Ruled out small-bowel obstruction Hypertensive urgency versus emergency Possible colitis Sepsis due to above GI tract abnormality on imaging/mucosal thickening of rectosigmoid Plan: Continue antibiotics IV hydration Awaiting angiography results to rule out ischemic colitis Possible colonoscopy later this week or outpatient if appropriate Thank you so much for the opportunity to consult on your patient. GI team will follow the patient. In case of any questions or concerns please feel free to reach out. Plan discussed with Dr. Weiss Plan discussed with: Other (RN) Dietary Evaluation Review Comments: Nutrition Recommendation: 1) Advance to [facility] 45gm + cardiac diet 2) Refer [facility] for diabetes education Expected Outcomes/Goals: To meet >75% estimated needs Fu 2-3 days CARMEN PETERSEN RESIDENT Mar 13, 2025 15:55
--- NOTE | 2025-03-13 19:10 | DVHPNRES ---
Progress Note Date Seen: Mar 13, 2025 Resident Creating Document: GABE GARRETT RESIDENT Has the PT tested + for MRSA If YES, has PT been informed?: No Medical Necessity Reason Pt with a Central, PICC or Fol: No Subjective Review of Systems Patient 64-year-old female with hypertension, type 2 diabetes mellitus on insulin Basaglar 38 units, CAD status post stent 1 year back, multiple CVAs who presented to the ER with a chief complaint of abdominal pain for the past 2 months, associated with bloating, the pain has been therefore 2 months as sharp, not related to exertion, not related to food or fasting, she has been experiencing vomiting for the past night but otherwise denies diarrhea or constipation. No fever or chills. He abdomen showed colitis, repeat CT with IV contrast showed bilateral kidney stones, interstitial pancreatitis, high-grade renal artery stenosis. CT head showed old small frontal lobe infarct, age indeterminate left cerebellar infarct. Patient A1c was 12. WBC count has been increasing to 18 from 10 on arrival. Patient had good appetite but severe abdominal pain. Not passing gas. Last bowel movement was 03/05. 03/07 - Patient seen and examined in ER, downgraded to telemetry, started clear liquid diet, started lactated ringer 75 cc/hour, started amlodipine and Coreg, we will up titrate to control blood pressure, DC nicardipine drip, consider CT angio after kidney function improves and if pain persists. Lactic acid has resolved. GI evaluation pending. DALE worsening. Lipase increased to 900 03/08-patient seen and examined, not passing gas or BM. GI recommended a small bowel series. KUB shows ileus versus obstruction. 03/09 - underwent gastrographin, no obstruction, 2 bowel movements, lipase wnl 03/12-patient seen and examined, reports similar abdominal pain, but passing gas and bowel movements [address] angio abdominal ordered. 03/13 - patient seen and examined, CT abdomen angio pending. Telemetry shows PVCs, EKG unremarkable. Objective vital signs Vital Sign Date Time Temp Pulse Resp B/P (MAP) Pulse Ox O2 Delivery O2 Flow Rate FiO2 03/13/25 16:54 97.2 82 18 140/86 (104) 98 97.2 03/13/25 08:00 Room Air* 0 21 Total Intake and Output 03/12/25 03/12/25 03/13/25 15:00 23:00 07:00 Intake Total 275 ml 200 ml 100 ml Balance 275 ml 200 ml 100 ml medications Current Medications Medications Dose Ordered Sig/Maco Route Start Time Stop Time Status Last Admin Dose Admin Ceftriaxone Sodium 50 ml @ 100 mls/hr DAILY@09 IV 03/06/25 09:00 03/13/25 09:20 100 MLS/HR Metronidazole 100 ml @ 100 mls/hr Q8HR IV 03/06/25 14:00 03/13/25 15:22 100 MLS/HR Nystatin 1 applic BID TOP 03/06/25 10:00 03/12/25 22:00 1 APPLIC Lidocaine 1 patch DAILY TOP 03/06/25 10:00 03/12/25 09:32 1 PATCH Aspirin 81 mg DAILY PO 03/06/25 10:00 03/13/25 09:04 81 MG Enoxaparin Sodium 40 mg DAILY SC 03/07/25 10:00 03/13/25 09:05 40 MG Ticagrelor 90 mg BID PO 03/06/25 22:00 03/13/25 09:03 90 MG Nicardipine HCl 250 ml @ 50 mls/hr Q5H IV 03/06/25 15:15 Cancel Pantoprazole Sodium 40 mg BID IV 03/06/25 15:30 03/13/25 09:01 40 MG Amlodipine Besylate 10 mg DAILY PO 03/08/25 10:00 03/13/25 09:02 10 MG Insulin Glargine 20 units HS SC 03/07/25 22:00 03/12/25 21:19 20 UNITS Carvedilol 12.5 mg Q12HR PO 03/07/25 22:00 03/13/25 09:03 12.5 MG Acetaminophen 650 mg Q4HP PRN PO 03/07/25 19:30 03/11/25 01:26 650 MG Acetaminophen/ Hydrocodone Bitart 1 tab Q4HPRN PRN PO 03/09/25 20:45 03/13/25 18:31 1 TAB Diagnostic Test (Pha) 1 strip ACHS 03/12/25 17:00 03/13/25 11:30 1 STRIP Insulin Human Regular HS SC 03/12/25 22:00 03/12/25 21:19 3 UNITS Insulin Human Regular AC SC 03/12/25 17:00 03/13/25 18:33 2 UNITS Dextrose 50 ml UD PRN IV 03/12/25 16:45 Examination Obese female patient lying in the bed, patient is hungry, well conversational General: Overweight, afebrile, palor, mucosae are moist Cardiovascular: Tachycardia but Regular S1 and S2. No murmurs, gallops or rubs. No JVD elevation. 1+ pitting pedal edema bilaterally Respiratory: Normal B/L air entry on room air. Clear lung sounds on auscultation Abdomen: Right lower quadrant and epigastric tenderness to palpation, normoactive to hyperactive bowel sounds, no rebound tenderness, no organomegaly, no masses no CVA tenderness. Genitourinary: Deferred MSK/skin: Mobilizes 4 limbs. Skin is dry and warm Neurological: No motor, no sensitive deficits, normal speech. Pupils are isocoric and reactive. Psych/Mental Status: A/Ox3 laboratory and microbiology Laboratory Tests 03/13/25 06:25 Test 03/13/25 06:25 Range/Units Serum Glucose 122 H 74-106 mg/dL Microbiology Date/Time Source Procedure Growth Status 03/12/25 15:10 Stool Stool Culture - Preliminary Resulted 03/12/25 15:10 Stool Shiga Toxin I & II - Final Resulted 03/06/25 07:03 Blood Blood Culture - Final NO GROWTH AFTER 5 DAYS OF INCUBATION. Complete 03/05/25 17:20 Voided Urine Urine Culture - Final Complete Labs and/or images reviewed: Labs reviewed by me, Image(s) reviewed by me Problem List/Assessment/Plan Problem List/Assessment/Plan NEURO: Acute toxic/metabolic encephalopathy due to opioid overdose? 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 EKG shows nonspecific ST changes, no STEMI Echocardiogram lvef 65%, left atrium enlarged GASTROINTESTINAL: Acute interstitial pancreatitis Rule out ischemic colitis Sepsis secondary to Colitis likely etiology infectious Lactated ringer 75 cc Full liquid diet IV ceftriaxone and metronidazole GI consultation recommended a small bowel series with Gastrografin-stool studies pending - SMALL BOWEL SERIES-W GASTROGRA Normal small bowel series. lipase - 48->970->42 CT angio abdomen pending GENITOURINARY: Likely left Renal artery stenosis DALE likely contrast induced/NSAIDs Complicated Cystitis Bilateral renal calculi Creatinine trending down, GFR improving IV fluids METABOLIC: Uncontrolled Diabetes mellitus type 2-HGB A1c 12 Lantus 20 mg HS daily Moderate ISS INFECTIOUS DISEASE: Sepsis secondary to infectious colitis Blood culture negative, urine culture [id number] Gram-positive [place] DIET: Full liquids DVT prophylax: Lovenox 40 mg sc daily GI prophylaxis: Protonix twice daily Bowel regimen: None Code status: Full code LINES/DRAINS/ACCESS: IV access: Discontinued Right CBC IJ 03/06 till 03/12 Last bowel movement: 03/12 DISPOSITION: med/surg Patient's status discussed with patient's daughter at bedside which all questions have been answered Goals care discussed with patient, patient's daughter full code status Critical care time spent more than 58 minutes, including patient care, chart review, and updating the family. Excluding any procedures Case discussed with Dr. Guan Plan discussed with: Patient My Orders My Orders Orders - GABE GARRETT Procedure Category Date Status Time Angio Abdominal With CT 03/12/25 Taken RUN 20:02 Transfer Orders XFER 03/13/25 Transmitted 15:41 Discontinue Tele NANCY 03/13/25 In Process 15:41 Dietary Evaluation Review Comments: Nutrition Recommendation: 1) Advance to [facility] 45gm + cardiac diet 2) Refer Quality Control Chemist for diabetes education Expected Outcomes/Goals: To meet >75% estimated needs Fu 2-3 days Date of Service: Mar 13, 2025 Billing Provider: MONIQUE GUAN MD Common Visit Codes: 10928-[facility] CARE 30-74 MIN GABE GARRETT Mar 13, 2025 19:10 MONIQUE GUAN MD Mar 14, 2025 12:12
[2025-03-13] MEDS: SODIUM CHLORIDE 0.9% 250 ML IV ONE (19:15)
[2025-03-13] MEDS: MAGNESIUM SULFATE 1GM/100ML 100 ML IV ONE (21:32)
--- NOTE | 2025-03-13 21:32 | DVH ---
EXAM: CT ANGIO ABDOMINAL WITH RUN, CT of the chest INDICATION: Rule out: Ischemia TECHNIQUE: CT angiogram of the chest, abdomen, pelvis was performed following uncomplicated administr ation of intravenous contrast. Sagittal and coronal reformatted images as well as maximum intensity projection images and 3D volume renderings were generated and evaluated. Coronal and sagittal reforma tions and maximum intensity projection images were created from the transaxial source data by the medical technologist chemistry and workstation, as well as 3-D volume rendered images. COMPARISON: None available. 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 Scattered mixed atherosclerotic plaque. No aneurysmal dilation. [KECIA]: Patent [RENALS]: Patent [ILIACS]: Patent [FEMORALS]: Patent [PULMONARY ARTERIES]: No pulmonary arterial filling defect. Normal caliber of the main pulmonary janina ry. No evidence of elevated right heart pressures. [CARDIOVASCULAR]: Normal cardiac size. No pericardial effusion. No aneurysmal dilatation of the great vessels. Coronary artery calcifications. NON-VASCULAR FINDINGS: [LOWER NECK]: Unremarkable [LYMPH NODES/MEDIASTINUM]: No abnormal lymph nodes by CT size criteria [LUNG PARENCHYMA/PLEURAL SPACE]: Small bilateral pleural effusions with atelectasis in bilateral base s. No consolidation. [CHEST WALL]: Unremarkable. [LIVER]: Normal hepatic size without suspicious focal lesion. [SPLEEN]: Normal [PANCREAS]: Significant surrounding edema pancreas compatible with interstitial edematous pancreatiti s. [GALLBLADDER AND BILIARY TREE]: Trace possible layering biliary sludge. No biliary dilatation. [ADRENAL GLANDS]: Unremarkable [KIDNEYS]: No hydronephrosis. 8 mm nonobstructive left inferior renal caliceal stone. [BLADDER]: Unremarkable for the degree distention. [PELVIC ORGANS]: Unremarkable. [BOWEL/MESENTERY]: Mild possible submucosal edema along the stomach correlate for gastritis. Air-flui d levels colon without abnormal dilation no pneumatosis intestinalis [ASCITES]: Small volume ascites [LYMPHADENOPATHY]: No pathologically enlarged lymph nodes by CT size criteria [ABDOMINAL WALL]: Urod-hv-zetqlitw diffuse body [MUSCULOSKELETAL]: No acute fracture or aggressive focal osseous lesion. Multifocal degenerative oquendo ge of the visualized spine. IMPRESSION: 1. 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 Correlate for postprandial type pain. 2. Significant surrounding edema pancreas compatible with interstitial edematous pancreatitis. 3. 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 4. No definitive CT evidence of colonic ischemia however correlate with lactate levels consider short -term imaging follow-up and maintain elevated concern given the appearance of near-complete occlusion of the superior mesenteric artery.
[2025-03-14] VITALS (7 sets, daily range): BP systolic 114–163; BP diastolic 51–85; PULSE 78–88; RESP 16–20; TEMP 97.6–98.1; O2SAT 97–98
[2025-03-14 06:26] LABS: Hematocrit 36.3 % (36.0-46.0); Hemoglobin 12.5 g/dL (12.2-16.2); Mean Corpuscular Hemoglobin 31.2 pg (28.0-32.0); Mean Corpuscular Volume 90.7 fL (80.0-100.0); Nucleated Red Blood Cells % 0.2 %
[2025-03-14 06:46] LABS: Alkaline Phosphatase 92 U/L (46-116); Anion Gap 11 (5-15); BUN/Creatinine Ratio 6.3 (10.0-20.0); Carbon Dioxide 24 mmol/L (20-31); Magnesium 1.8 mg/dL (1.6-2.6); Sodium 143 mmol/L (136-145)
[2025-03-14 06:48] LABS: Alanine Aminotransferase < 9 U/L (7-40); Albumin 3.0 g/dL (3.2-4.8); Bilirubin, Total 0.2 mg/dL (0.2-1.0); Blood Urea Nitrogen 5 mg/dL (9-23); Calcium 8.1 mg/dL (8.7-10.4); Chloride 108 mmol/L (98-107); Glucose 71 mg/dL (74-106); Potassium 3.0 mmol/L (3.5-5.1); Total Protein 5.5 g/dL (5.7-8.2)
[2025-03-14] MEDS: SUCRALFATE 1 GM/10 ML ORAL SUSP PO ONE (09:00)
[2025-03-14] MEDS: MAGNESIUM SULFATE 1GM/100ML 100 ML IV ONE (09:04)
[2025-03-14] MEDS: POTASSIUM CHL 20MEQ/100ML 100 ML IV SCH (09:30)
--- NOTE | 2025-03-14 11:26 | DVHPN2 ---
Progress Note Date Seen: Mar 14, 2025 Resident Creating Document: CARMEN PETERSEN RESIDENT Has the PT tested + for MRSA If YES, has PT been informed?: No Medical Necessity Reason Pt with a Central, PICC or Fol: No Subjective Review of Systems Patient seen and examined at bedside Continues to have generalized abdominal pain, rates it as 03/14 in intensity Tolerating diet without any pain, nausea or vomiting Objective vital signs Vital Sign Date Time Temp Pulse Resp B/P (MAP) Pulse Ox O2 Delivery O2 Flow Rate FiO2 03/14/25 09:06 158/70 03/14/25 09:05 78 03/14/25 09:00 98.1 17 98 98.1 03/14/25 08:00 Room Air* 0 21 Total Intake and Output 03/13/25 03/13/25 03/14/25 15:00 23:00 07:00 Intake Total 200 ml 100 ml Balance 200 ml 100 ml medications Current Medications Medications Dose Ordered Sig/Maco Route Start Time Stop Time Status Last Admin Dose Admin Ceftriaxone Sodium 50 ml @ 100 mls/hr DAILY@09 IV 03/06/25 09:00 03/14/25 09:05 100 MLS/HR Metronidazole 100 ml @ 100 mls/hr Q8HR IV 03/06/25 14:00 03/14/25 05:24 100 MLS/HR Nystatin 1 applic BID TOP 03/06/25 10:00 03/13/25 21:40 1 APPLIC Lidocaine 1 patch DAILY TOP 03/06/25 10:00 03/12/25 09:32 1 PATCH Aspirin 81 mg DAILY PO 03/06/25 10:00 03/14/25 09:06 81 MG Enoxaparin Sodium 40 mg DAILY SC 03/07/25 10:00 03/14/25 09:07 40 MG Ticagrelor 90 mg BID PO 03/06/25 22:00 03/14/25 09:06 90 MG Nicardipine HCl 250 ml @ 50 mls/hr Q5H IV 03/06/25 15:15 Cancel Pantoprazole Sodium 40 mg BID IV 03/06/25 15:30 03/14/25 09:05 40 MG Amlodipine Besylate 10 mg DAILY PO 03/08/25 10:00 03/14/25 09:06 10 MG Insulin Glargine 20 units HS SC 03/07/25 22:00 03/13/25 21:29 20 UNITS Carvedilol 12.5 mg Q12HR PO 03/07/25 22:00 03/14/25 09:05 12.5 MG Acetaminophen 650 mg Q4HP PRN PO 03/07/25 19:30 03/11/25 01:26 650 MG Acetaminophen/ Hydrocodone Bitart 1 tab Q4HPRN PRN PO 03/09/25 20:45 03/14/25 05:25 1 TAB Diagnostic Test (Pha) 1 strip ACHS 03/12/25 17:00 03/14/25 05:28 1 STRIP Insulin Human Regular HS SC 03/12/25 22:00 03/13/25 21:29 6 UNITS Insulin Human Regular AC SC 03/12/25 17:00 03/13/25 18:33 2 UNITS Dextrose 50 ml UD PRN IV 03/12/25 16:45 Potassium Chloride 100 ml @ 50 mls/hr Q2H IV 03/14/25 07:30 03/14/25 11:29 Sucralfate 1 gm BID@0600,2200 PO 03/14/25 22:00 Examination General: Overweight, afebrile, palor, mucosae are moist Cardiovascular: Tachycardia but Regular S1 and S2. No murmurs, gallops or rubs. No JVD elevation. 1+ pitting pedal edema bilaterally Respiratory: Normal B/L air entry on room air. Clear lung sounds on auscultation Abdomen: Right lower quadrant and epigastric tenderness to palpation, normoactive to hyperactive bowel sounds, no rebound tenderness, no organomegaly, no masses Genitourinary: Deferred MSK/skin: Mobilizes 4 limbs. Skin is dry and warm Neurological: No motor, no sensitive deficits, normal speech. Pupils are isocoric and reactive. Psych/Mental Status: A/Ox3 laboratory and microbiology Laboratory Tests 03/14/25 05:16 Test 03/14/25 05:16 Range/Units Serum Glucose 71 L 74-106 mg/dL Microbiology Date/Time Source Procedure Growth Status 03/12/25 15:10 Stool Stool Culture - Preliminary Resulted 03/12/25 15:10 Stool Shiga Toxin I & II - Final Resulted 03/06/25 07:03 Blood Blood Culture - Final NO GROWTH AFTER 5 DAYS OF INCUBATION. 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 Thank you so much for the opportunity to consult on your patient. GI team will follow the patient. In case of any questions or concerns please feel free to reach out. Plan discussed with Dr. Weiss Plan discussed with: Patient, Other (RN) Dietary Evaluation Review Comments: Nutrition Recommendation: 1) Advance to [facility] 45gm + cardiac diet 2) Refer Master Baker for diabetes education Expected Outcomes/Goals: To meet >75% estimated needs Fu 2-3 days CARMEN PETERSEN RESIDENT Mar 14, 2025 11:26
[2025-03-14] MEDS: hydrALAZINE HCL 20 MG/ML VL IV ONE (17:13)
--- NOTE | 2025-03-14 18:04 | DVHPNRES ---
Progress Note Date Seen: Mar 14, 2025 Resident Creating Document: GABE GARRETT RESIDENT Has the PT tested + for MRSA If YES, has PT been informed?: No Medical Necessity Reason Pt with a Central, PICC or Fol: No Subjective Review of Systems Patient 64-year-old female with hypertension, type 2 diabetes mellitus on insulin Basaglar 38 units, CAD status post stent 1 year back, multiple CVAs who presented to the ER with a chief complaint of abdominal pain for the past 2 months, associated with bloating, the pain has been therefore 2 months as sharp, not related to exertion, not related to food or fasting, she has been experiencing vomiting for the past night but otherwise denies diarrhea or constipation. No fever or chills. He abdomen showed colitis, repeat CT with IV contrast showed bilateral kidney stones, interstitial pancreatitis, high-grade renal artery stenosis. CT head showed old small frontal lobe infarct, age indeterminate left cerebellar infarct. Patient A1c was 12. WBC count has been increasing to 18 from 10 on arrival. Patient had good appetite but severe abdominal pain. Not passing gas. Last bowel movement was 03/05. 03/07 - Patient seen and examined in ER, downgraded to telemetry, started clear liquid diet, started lactated ringer 75 cc/hour, started amlodipine and Coreg, we will up titrate to control blood pressure, DC nicardipine drip, consider CT angio after kidney function improves and if pain persists. Lactic acid has resolved. GI evaluation pending. DALE worsening. Lipase increased to 900 03/08-patient seen and examined, not passing gas or BM. GI recommended a small bowel series. KUB shows ileus versus obstruction. 03/09 - underwent gastrographin, no obstruction, 2 bowel movements, lipase wnl 03/12-patient seen and examined, reports similar abdominal pain, but passing gas and bowel movements [address] angio abdominal ordered. 03/13 - patient seen and examined, CT abdomen angio pending. Telemetry shows PVCs, EKG unremarkable. 03/14 - reports abd pain, radiology and vascular consulted Objective vital signs Vital Sign Date Time Temp Pulse Resp B/P (MAP) Pulse Ox O2 Delivery O2 Flow Rate FiO2 03/14/25 13:00 98.0 87 20 153/78 (103) 98 98.0 03/14/25 08:00 Room Air* 0 21 Total Intake and Output 9/03/2903/13/25 03/14/25 15:00 23:00 07:00 Intake Total 200 ml 100 ml Balance 200 ml 100 ml medications Current Medications Medications Dose Ordered Sig/Maco Route Start Time Stop Time Status Last Admin Dose Admin Ceftriaxone Sodium 50 ml @ 100 mls/hr DAILY@09 IV 03/06/25 09:00 03/14/25 09:05 100 MLS/HR Metronidazole 100 ml @ 100 mls/hr Q8HR IV 03/06/25 14:00 03/14/25 05:24 100 MLS/HR Nystatin 1 applic BID TOP 03/06/25 10:00 03/13/25 21:40 1 APPLIC Lidocaine 1 patch DAILY TOP 03/06/25 10:00 03/14/25 10:00 1 PATCH Aspirin 81 mg DAILY PO 03/06/25 10:00 03/14/25 09:06 81 MG Enoxaparin Sodium 40 mg DAILY SC 03/07/25 10:00 03/14/25 09:07 40 MG Ticagrelor 90 mg BID PO 03/06/25 22:00 03/14/25 09:06 90 MG Nicardipine HCl 250 ml @ 50 mls/hr Q5H IV 03/06/25 15:15 Cancel Pantoprazole Sodium 40 mg BID IV 03/06/25 15:30 03/14/25 09:05 40 MG Amlodipine Besylate 10 mg DAILY PO 03/08/25 10:00 03/14/25 09:06 10 MG Insulin Glargine 20 units HS SC 03/07/25 22:00 03/13/25 21:29 20 UNITS Carvedilol 12.5 mg Q12HR PO 03/07/25 22:00 03/14/25 09:05 12.5 MG Acetaminophen 650 mg Q4HP PRN PO 03/07/25 19:30 03/11/25 01:26 650 MG Acetaminophen/ Hydrocodone Bitart 1 tab Q4HPRN PRN PO 03/09/25 20:45 03/14/25 05:25 1 TAB Diagnostic Test (Pha) 1 strip ACHS 03/12/25 17:00 03/14/25 11:30 1 STRIP Insulin Human Regular HS SC 03/12/25 22:00 03/13/25 21:29 6 UNITS Insulin Human Regular AC SC 03/12/25 17:00 03/14/25 11:30 3 UNITS Dextrose 50 ml UD PRN IV 03/12/25 16:45 Sucralfate 1 gm BID@0600,2200 PO 03/14/25 22:00 Examination Obese female patient lying in the bed, patient is hungry, well conversational General: Overweight, afebrile, palor, mucosae are moist Cardiovascular: Tachycardia but Regular S1 and S2. No murmurs, gallops or rubs. No JVD elevation. 1+ pitting pedal edema bilaterally Respiratory: Normal B/L air entry on room air. Clear lung sounds on auscultation Abdomen: Right lower quadrant and epigastric tenderness to palpation, normoactive to hyperactive bowel sounds, no rebound tenderness, no organomegaly, no masses no CVA tenderness. Genitourinary: Deferred MSK/skin: Mobilizes 4 limbs. Skin is dry and warm Neurological: No motor, no sensitive deficits, normal speech. Pupils are isocoric and reactive. Psych/Mental Status: A/Ox3 laboratory and microbiology Laboratory Tests 03/14/25 05:16 Test 03/14/25 05:16 Range/Units Serum Glucose 71 L 74-106 mg/dL Microbiology Date/Time Source Procedure Growth Status 03/12/25 15:10 Stool Stool Culture - Preliminary Resulted 03/12/25 15:10 Stool Shiga Toxin I & II - Final Resulted 03/06/25 07:03 Blood Blood Culture - Final NO GROWTH AFTER 5 DAYS OF INCUBATION. Complete 03/05/25 17:20 Voided Urine Urine Culture - Final Complete Labs and/or images reviewed: Labs reviewed by me, Image(s) reviewed by me Problem List/Assessment/Plan Problem List/Assessment/Plan NEURO: Acute toxic/metabolic encephalopathy due to opioid overdose? 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 EKG shows nonspecific ST changes, no STEMI Echocardiogram lvef 65%, left atrium enlarged GASTROINTESTINAL: Acute interstitial pancreatitis Rule out ischemic colitis Sepsis secondary to Colitis likely etiology infectious Lactated ringer 75 cc Full liquid diet IV ceftriaxone and metronidazole GI consultation recommended a small bowel series with Gastrografin-stool studies pending - SMALL BOWEL SERIES-W GASTROGRA Normal small bowel series. 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 Correlate for postprandial type pain. Significant surrounding edema pancreas compatible with interstitial edematous pancreatitis. 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 No definitive CT evidence of colonic ischemia however correlate with lactate levels consider short-term imaging follow-up and maintain elevated concern given the appearance of near-complete occlusion of the superior mesenteric artery. IR and vascular consulted GENITOURINARY: Likely left Renal artery stenosis DALE likely contrast induced/NSAIDs Complicated Cystitis Bilateral renal calculi Creatinine trending down, GFR improving IV fluids METABOLIC: Uncontrolled Diabetes mellitus type 2-HGB A1c 12 Lantus 20 mg HS daily Moderate ISS INFECTIOUS DISEASE: Sepsis secondary to infectious colitis Blood culture negative, urine culture [id number] Gram-positive [place] DIET: Full liquids DVT prophylax: Lovenox 40 mg sc daily GI prophylaxis: Protonix twice daily Bowel regimen: None Code status: Full code LINES/DRAINS/ACCESS: IV access: Discontinued Right CBC IJ 03/06 till 03/12 Last bowel movement: 03/13 DISPOSITION: med/surg Patient's status discussed with patient's daughter at bedside which all questions have been answered Goals care discussed with patient, patient's daughter full code status Critical care time spent more than 53 minutes, including patient care, chart review, and updating the family. Excluding any procedures Case discussed with Dr. Guan Plan discussed with: Patient My Orders My Orders Orders - GABE GARRETT Procedure Category Date Status Time Sucralfate Susp PHA 03/14/25 In Process (Carafate Susp) 22:00 * Radiologist Consult CONS 03/14/25 Transmitted 10:01 Dietary Evaluation Review Comments: Nutrition Recommendation: 1) Advance to [facility] 45gm + cardiac diet 2) Refer [employer] Work[employer] for diabetes education Expected Outcomes/Goals: To meet >75% estimated needs Fu 2-3 days Date of Service: Mar 14, 2025 Billing Provider: MONIQUE GUAN MD Common Visit Codes: 37220-VUYGEANP CARE 30-74 MIN GABE GARRETT Mar 14, 2025 18:04 MONIQUE GUAN MD Mar 15, 2025 12:43
[2025-03-14] MEDS: LISINOPRIL 5 MG TAB PO ONE (21:55)
[2025-03-14] MEDS: ATORVASTATIN 20 MG TAB PO SCH (21:56)
[2025-03-14] MEDS: SUCRALFATE 1 GM/10 ML ORAL SUSP PO SCH (21:56)
[2025-03-15] VITALS (7 sets, daily range): BP systolic 121–171; BP diastolic 67–91; PULSE 76–89; RESP 16–18; TEMP 97.3–98.3; O2SAT 96–99
--- NOTE | 2025-03-15 07:36 | ECG ---
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
--- NOTE | 2025-03-15 08:11 | DVHCONRES ---
Date Seen: Mar 15, 2025 Resident Creating Document: LEONARDA VIDES Jr., MD Referring Physician er Reason for Consultation abd. pain History of Present Illness 64-year-old female with a history of hypertension, diabetes, cerebral stenosis, CAD status post PTCA presenting complaining of diffuse abdominal pain, greatest in the lower abdomen, progressively worsening over the past 2 months. Patient states she came to the ER today because she could not no longer tolerate the pain, which she describes as pressure-like with associated migrating sharp pains. She denies any fever, nausea, vomiting, diarrhea, constipation or dysuria. States the pain is not associated with food intake. Patient was found to have pancreatitis on laboratory evaluations and CAT scan. 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 Since admission abdominal pain has subsided. Patient is able to eat without difficulty currently patient has not lost any weight. Past Medical History hypertension, diabetes, cerebral stenosis, CAD status post PTCA Past Surgical History None Family History: FH: cancer G8 MOTHER G8 FATHER Social History Nonsmoker nondrinker Allergies: Coded Allergies: Morphine (Verified Allergy, Severe, 03/06/25) Home Meds Reported Medications Ticagrelor Base (BRILINTA) 90 Mg Tab, 1 TAB PO BID 03/06/25 Aspirin (Aspirin Low Dose) 81 Mg Tab, 1 TAB PO DAILY 03/06/25 Current Medications Current Medications Medications (Trade) Dose Ordered Sig/Maco Route PRN Reason Start Time Stop Time Status Last Admin Sucralfate (Carafate Susp) 1 gm BID@0600,2200 PO 03/14/25 22:00 03/15/25 06:21 Lisinopril (Zestril Tablet) 10 mg DAILY PO 03/15/25 10:00 Atorvastatin Calcium (Lipitor) 40 mg HS PO 03/14/25 22:00 03/14/25 21:56 Review of Systems All systems reviewed otherwise negative other than what is in HPI. Vital Signs Vital Signs Date Time Temp Pulse Resp B/P (MAP) Pulse Ox O2 Delivery O2 Flow Rate FiO2 03/15/25 05:00 97.3 78 17 136/67 (90) 98 97.3 03/14/25 20:00 Room Air* 0 21 Physical Exam Head eyes ears nose and throat exam as are nonicteric conjunctiva is pink neck was supple no JVD no with rapid no carotid bruits lungs are clear to ausculta tion house regular rate and rhythm abdomen was soft nontender. No pulsatile abdominal masses. Labs/Diagnostic Data Labs Test 03/15/25 07:06 03/15/25 05:44 03/14/25 19:58 03/14/25 05:16 Range/Units POC Glucose 125 H 70-106 mg/dl Eosinophils (%) (Auto) 2.9 0.0-7.0 % Eosinophils # (Auto) 0.3 0-0.8 10 ^3/uL Basophils # (Auto) 0 0-0.2 10 ^3/uL Nucleated Red Blood Cells 0.2 % Lactic Acid Level 0.8 0.4-2.0 mmol/L Magnesium Level 1.8 1.6-2.6 mg/dL Test 03/09/25 23:10 03/09/25 06:19 03/08/25 04:52 03/07/25 13:57 Range/Units Urine Color Yellow Yellow Urine Clarity Turbid H Clear Urine pH 6.0 5.0-9.0 Urine Specific [place] 1.012 1.001-1.035 Urine Protein Negative Negative Urine Ketones Trace Negative Urine Blood 1+ H Negative /uL Urine Nitrite Negative Negative Urine Bilirubin 1+ H Negative Urine Urobilinogen Normal Negative mg/dL Urine Leukocyte Esterase Trace Negative /uL Urine RBC 41 0 - 4 /hpf Urine Microscopic WBC 1 0-5 /HPF Urine Squamous Epithelial Cells Few <5 /hpf Urine Amorphous Crystals Few None Seen /hpf Urine Bacteria Few H None Seen /hpf Urine Mucus Few None Seen Urine Yeast (Budding) Moderate None Seen /hpf Urine Glucose 4+ H Normal mg/dL Stool Occult Blood Negative Negative Stool Occult Blood Sample #3 Negative Stool for White Cells None seen Lipase 42 12-53 U/L Troponin I High Sensitivity 76 *H </=34 ng/L Influenza Type A Antigen Negative Negative Influenza Type B Antigen Negative Negative Test 03/07/25 05:48 03/07/25 00:00 03/06/25 16:44 03/06/25 15:53 Range/Units Prothrombin Time 11.4 9.3-11.8 sec Prothrombin Time INR 1.08 0.9-1.15 Activated Partial Thromboplast Time 29.5 24.5-34.5 SEC Phosphorus Level 2.4 2.4-5.1 mg/dL Triglycerides Level 333 H < 150 mg/dL Cholesterol Level 199 < 200 mg/dL LDL Cholesterol 138 H < 100 mg/dL HDL Cholesterol 26 L 40-59 mg/dL Thyroid Stimulating Hormone (TSH) 0.34 L 0.55-4.78 uIU/mL Free Thyroxine (T4) Calculated 1.33 0.89-1.76 ng/dL Total Triiodothyronine (TT3) 1.04 0.60-1.81 ng/mL SARS-CoV-2 Antigen (Rapid) Negative NEGATIVE Blood Gas Specimen Type Arterial Blood Gas Sample Site Right radial Blood Gas Patient Temperature 37.0 Arterial Blood Date Drawn [id number] Arterial Blood pH 7.440 7.350-7.450 Arterial Blood Partial Pressure CO2 29.4 L 32.0-45.0 mmHg Arterial Blood Partial Pressure O2 84.5 83.0-108.0 mmHg Arterial Blood HCO3 19.5 L 21.0-28.0 mmol/L Arterial Blood Oxygen Saturation 96.5 94.0-98.0 % Arterial Blood Base Excess -3.2 L -2.0-3.0 mmol/L Arterial Blood Oxyhemoglobin 95.0 94.0-98.0 % Arterial Blood Carboxyhemoglobin 0.8 0.5-1.5 % Arterial Blood Methemoglobin 0.8 0.0-1.5 % Femi Test Yes Blood Gas Total Hemoglobin 15.70 12.0-16.0 g/dL Blood Gas Modality Room air FiO2 % 21.0 Serum Osmolality 306 H 278-298 mOsm/kg Test 03/05/25 17:12 Range/Units Hemoglobin A1c 12.0 H <5.7 % A1C Microbiology Date/Time Source Procedure Growth Status 03/12/25 15:10 Stool Stool Culture - Preliminary Resulted 03/12/25 15:10 Stool Shiga Toxin I & II - Final Resulted 03/06/25 07:03 Blood Blood Culture - Final NO GROWTH AFTER 5 DAYS OF INCUBATION. Complete 03/05/25 17:20 Voided Urine Urine Culture - Final Complete CT ANGIO ABDOMINAL WITH RUN, CT of the chest INDICATION: Rule out: Ischemia TECHNIQUE: CT angiogram of the chest, abdomen, pelvis was performed following uncomplicated administration of intravenous contrast. Sagittal and coronal reformatted images as well as maximum intensity projection images and 3D volume renderings were generated and evaluated. Coronal and sagittal reformations and maximum intensity projection images were created from the transaxial source data by the cardiology technologist and workstation, as well as 3-D volume rendered images. COMPARISON: None available. 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 Scattered mixed atherosclerotic plaque. No aneurysmal dilation. [KECIA]: Patent [RENALS]: Patent [ILIACS]: Patent [FEMORALS]: Patent [PULMONARY ARTERIES]: No pulmonary arterial filling defect. Normal caliber of the main pulmonary artery. No evidence of elevated right heart pressures. [CARDIOVASCULAR]: Normal cardiac size. No pericardial effusion. No aneurysmal dilatation of the great vessels. Coronary artery calcifications. NON-VASCULAR FINDINGS: [LOWER NECK]: Unremarkable [LYMPH NODES/MEDIASTINUM]: No abnormal lymph nodes by CT size criteria [LUNG PARENCHYMA/PLEURAL SPACE]: Small bilateral pleural effusions with atelectasis in bilateral bases. No consolidation. [CHEST WALL]: Unremarkable. [LIVER]: Normal hepatic size without suspicious focal lesion. [SPLEEN]: Normal [PANCREAS]: Significant surrounding edema pancreas compatible with interstitial edematous pancreatitis. [GALLBLADDER AND BILIARY TREE]: Trace possible layering biliary sludge. No biliary dilatation. [ADRENAL GLANDS]: Unremarkable [KIDNEYS]: No hydronephrosis. 8 mm nonobstructive left inferior renal caliceal stone. [BLADDER]: Unremarkable for the degree distention. [PELVIC ORGANS]: Unremarkable. [BOWEL/MESENTERY]: Mild possible submucosal edema along the stomach correlate for gastritis. Air-fluid levels colon without abnormal dilation no pneumatosis intestinalis [ASCITES]: Small volume ascites [LYMPHADENOPATHY]: No pathologically enlarged lymph nodes by CT size criteria [ABDOMINAL WALL]: [id number] diffuse body [MUSCULOSKELETAL]: No acute fracture or aggressive focal osseous lesion. Multifocal degenerative change of the visualized spine. IMPRESSION: 1. 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 Correlate for postprandial type pain. 2. Significant surrounding edema pancreas compatible with interstitial edematous pancreatitis. 3. 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 Assessment Patient recovering from pancreatitis with CAT scan findings consistent with mese nteric artery disease. We will need full GI workup including upper and lower endoscopy. We will follow up as an outpatient with possible aortogram once complete GI workup has been established and pancreatitis has resolved. Plan/Recommendation Patient recovering from pancreatitis with CAT scan findings consistent with mesenteric artery disease. We will need full GI workup including upper and lower endoscopy. We will follow up as an outpatient with possible aortogram once complete GI workup has been established and pancreatitis has resolved. Plan discussed with: Patient LEONARDA VIDES Jr., MD Mar 15, 2025 08:11
[2025-03-15 08:19] LABS: Hematocrit 35.6 % (36.0-46.0); Hemoglobin 12.4 g/dL (12.2-16.2); Mean Corpuscular Hemoglobin 32.1 pg (28.0-32.0); Mean Corpuscular Volume 91.9 fL (80.0-100.0); Nucleated Red Blood Cells % 0.1 %
[2025-03-15 08:35] LABS: Alkaline Phosphatase 97 U/L (46-116); Anion Gap 9 (5-15); Carbon Dioxide 24 mmol/L (20-31); Chloride 107 mmol/L (98-107); Potassium 3.9 mmol/L (3.5-5.1); Sodium 140 mmol/L (136-145)
[2025-03-15 08:51] LABS: Alanine Aminotransferase 9 U/L (7-40); Albumin 3.2 g/dL (3.2-4.8); BUN/Creatinine Ratio 6.5 (10.0-20.0); Bilirubin, Total 0.2 mg/dL (0.2-1.0); Blood Urea Nitrogen < 5 mg/dL (9-23); Calcium 8.4 mg/dL (8.7-10.4); Glucose 117 mg/dL (74-106); Total Protein 5.7 g/dL (5.7-8.2)
--- NOTE | 2025-03-15 09:34 | DVHPN2 ---
Progress Note Date Seen: Mar 15, 2025 Resident Creating Document: CARMEN PETERSEN RESIDENT Has the PT tested + for MRSA If YES, has PT been informed?: No Medical Necessity Reason Pt with a Central, PICC or Fol: No Subjective Review of Systems Patient seen and examined at bedside Continues to complain of 9/10 abdominal pain Last bowel movement 03/14/2025 Tolerating diet Objective vital signs Vital Sign Date Time Temp Pulse Resp B/P (MAP) Pulse Ox O2 Delivery O2 Flow Rate FiO2 03/15/25 05:00 97.3 78 17 136/67 (90) 98 97.3 03/14/25 20:00 Room Air* 0 21 Total Intake and Output 03/14/25 03/14/25 03/15/25 15:00 23:00 07:00 Intake Total 250 ml 200 ml 400 ml Output Total 500 ml Balance 250 ml 200 ml -100 ml medications Current Medications Medications Dose Ordered Sig/Maco Route Start Time Stop Time Status Last Admin Dose Admin Nystatin 1 applic BID TOP 03/06/25 10:00 03/13/25 21:40 1 APPLIC Lidocaine 1 patch DAILY TOP 03/06/25 10:00 03/14/25 10:00 1 PATCH Aspirin 81 mg DAILY PO 03/06/25 10:00 03/14/25 09:06 81 MG Enoxaparin Sodium 40 mg DAILY SC 03/07/25 10:00 03/14/25 09:07 40 MG Ticagrelor 90 mg BID PO 03/06/25 22:00 03/14/25 21:55 90 MG Nicardipine HCl 250 ml @ 50 mls/hr Q5H IV 03/06/25 15:15 Cancel Pantoprazole Sodium 40 mg BID IV 03/06/25 15:30 03/14/25 21:56 40 MG Amlodipine Besylate 10 mg DAILY PO 03/08/25 10:00 03/14/25 09:06 10 MG Insulin Glargine 20 units HS SC 03/07/25 22:00 03/14/25 22:26 20 UNITS Carvedilol 12.5 mg Q12HR PO 03/07/25 22:00 03/14/25 23:06 12.5 MG Acetaminophen 650 mg Q4HP PRN PO 03/07/25 19:30 03/11/25 01:26 650 MG Acetaminophen/ Hydrocodone Bitart 1 tab Q4HPRN PRN PO 03/09/25 20:45 03/15/25 03:22 1 TAB Diagnostic Test (Pha) 1 strip ACHS 03/12/25 17:00 03/15/25 06:18 1 STRIP Insulin Human Regular HS SC 03/12/25 22:00 03/14/25 22:23 6 UNITS Insulin Human Regular AC SC 03/12/25 17:00 03/14/25 17:04 2 UNITS Dextrose 50 ml UD PRN IV 03/12/25 16:45 Sucralfate 1 gm BID@0600,2200 PO 03/14/25 22:00 03/15/25 06:21 1 GM Lisinopril 10 mg DAILY PO 03/15/25 10:00 Atorvastatin Calcium 40 mg HS PO 03/14/25 22:00 03/14/25 21:56 40 MG Examination General: Overweight, afebrile, palor, mucosae are moist Cardiovascular: Tachycardia but Regular S1 and S2. No murmurs, gallops or rubs. No JVD elevation. 1+ pitting pedal edema bilaterally Respiratory: Normal B/L air entry on room air. Clear lung sounds on auscultation Abdomen: Right lower quadrant and epigastric tenderness to palpation, normoactive to hyperactive bowel sounds, no rebound tenderness, no organomegaly, no masses Genitourinary: Deferred MSK/skin: Mobilizes 4 limbs. Skin is dry and warm Neurological: No motor, no sensitive deficits, normal speech. Pupils are isocoric and reactive. Psych/Mental Status: A/Ox3 laboratory and microbiology Laboratory Tests 03/15/25 07:06 Test 03/15/25 07:06 Range/Units Serum Glucose 117 H 74-106 mg/dL Microbiology Date/Time Source Procedure Growth Status 03/12/25 15:10 Stool Stool Culture - Preliminary Resulted 03/12/25 15:10 Stool Shiga Toxin I & II - Final Resulted 03/06/25 07:03 Blood Blood Culture - Final NO GROWTH AFTER 5 DAYS OF INCUBATION. 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 Thank you so much for the opportunity to consult on your patient. GI team will follow the patient. In case of any questions or concerns please feel free to reach out. Plan discussed with Dr. Weiss Plan discussed with: Patient, Other (RN) Dietary Evaluation Review Comments: Nutrition Recommendation: 1) Advance to [facility] 45gm + cardiac diet 2) Refer [employer] for diabetes education Expected Outcomes/Goals: To meet >75% estimated needs Fu 2-3 days CARMEN PETERSEN RESIDENT Mar 15, 2025 09:34
[2025-03-15] MEDS: LISINOPRIL 5 MG TAB PO SCH (10:02)
--- NOTE | 2025-03-15 18:00 | DVHPNRES ---
Progress Note Date Seen: Mar 15, 2025 Resident Creating Document: GABE GARRETT RESIDENT Has the PT tested + for MRSA If YES, has PT been informed?: No Medical Necessity Reason Pt with a Central, PICC or Fol: No Subjective Review of Systems Patient 64-year-old female with hypertension, type 2 diabetes mellitus on insulin Basaglar 38 units, CAD status post stent 1 year back, multiple CVAs who presented to the ER with a chief complaint of abdominal pain for the past 2 months, associated with bloating, the pain has been therefore 2 months as sharp, not related to exertion, not related to food or fasting, she has been experiencing vomiting for the past night but otherwise denies diarrhea or constipation. No fever or chills. He abdomen showed colitis, repeat CT with IV contrast showed bilateral kidney stones, interstitial pancreatitis, high-grade renal artery stenosis. CT head showed old small frontal lobe infarct, age indeterminate left cerebellar infarct. Patient A1c was 12. WBC count has been increasing to 18 from 10 on arrival. Patient had good appetite but severe abdominal pain. Not passing gas. Last bowel movement was 03/05. 03/07 - Patient seen and examined in ER, downgraded to telemetry, started clear liquid diet, started lactated ringer 75 cc/hour, started amlodipine and Coreg, we will up titrate to control blood pressure, DC nicardipine drip, consider CT angio after kidney function improves and if pain persists. Lactic acid has resolved. GI evaluation pending. DALE worsening. Lipase increased to 900 03/08-patient seen and examined, not passing gas or BM. GI recommended a small bowel series. KUB shows ileus versus obstruction. 03/09 - underwent gastrographin, no obstruction, 2 bowel movements, lipase wnl 03/12-patient seen and examined, reports similar abdominal pain, but passing gas and bowel movements [address] angio abdominal ordered. 03/13 - patient seen and examined, CT abdomen angio pending. Telemetry shows PVCs, EKG unremarkable. 03/14 - reports abd pain, radiology and vascular consulted 03/15-persistent abdominal pain, hold Plavix. Vascular recommended GI workup and colonoscopy plus endoscopy, pending GI evaluation. Radiologist on board. Objective vital signs Vital Sign Date Time Temp Pulse Resp B/P (MAP) Pulse Ox O2 Delivery O2 Flow Rate FiO2 03/15/25 17:00 97.9 77 17 158/78 (104) 99 97.9 03/15/25 08:00 Room Air* 0 21 Total Intake and Output 03/14/25 03/14/25 03/15/25 15:00 23:00 07:00 Intake Total 250 ml 200 ml 400 ml Output Total 500 ml Balance 250 ml 200 ml -100 ml medications Current Medications Medications Dose Ordered Sig/Maco Route Start Time Stop Time Status Last Admin Dose Admin Nystatin 1 applic BID TOP 03/06/25 10:00 03/13/25 21:40 1 APPLIC Lidocaine 1 patch DAILY TOP 03/06/25 10:00 03/14/25 10:00 1 PATCH Aspirin 81 mg DAILY PO 03/06/25 10:00 03/15/25 10:00 81 MG Enoxaparin Sodium 40 mg DAILY SC 03/07/25 10:00 03/15/25 09:59 40 MG Ticagrelor 90 mg BID PO 03/06/25 22:00 03/15/25 10:01 90 MG Nicardipine HCl 250 ml @ 50 mls/hr Q5H IV 03/06/25 15:15 Cancel Pantoprazole Sodium 40 mg BID IV 03/06/25 15:30 03/15/25 09:59 40 MG Amlodipine Besylate 10 mg DAILY PO 03/08/25 10:00 03/15/25 10:01 10 MG Insulin Glargine 20 units HS SC 03/07/25 22:00 03/14/25 22:26 20 UNITS Carvedilol 12.5 mg Q12HR PO 03/07/25 22:00 03/15/25 10:00 12.5 MG Acetaminophen 650 mg Q4HP PRN PO 03/07/25 19:30 03/11/25 01:26 650 MG Acetaminophen/ Hydrocodone Bitart 1 tab Q4HPRN PRN PO 03/09/25 20:45 03/15/25 14:03 1 TAB Diagnostic Test (Pha) 1 strip ACHS 03/12/25 17:00 03/15/25 11:40 1 STRIP Insulin Human Regular HS SC 03/12/25 22:00 03/14/25 22:23 6 UNITS Insulin Human Regular AC SC 03/12/25 17:00 03/15/25 11:40 6 UNITS Dextrose 50 ml UD PRN IV 03/12/25 16:45 Sucralfate 1 gm BID@0600,2200 PO 03/14/25 22:00 03/15/25 06:21 1 GM Lisinopril 10 mg DAILY PO 03/15/25 10:00 03/15/25 10:02 10 MG Atorvastatin Calcium 40 mg HS PO 03/14/25 22:00 03/14/25 21:56 40 MG Examination Obese female patient lying in the bed, patient is hungry, well conversational General: Overweight, afebrile, palor, mucosae are moist Cardiovascular: Tachycardia but Regular S1 and S2. No murmurs, gallops or rubs. No JVD elevation. 1+ pitting pedal edema bilaterally Respiratory: Normal B/L air entry on room air. Clear lung sounds on auscultation Abdomen: Right lower quadrant and epigastric tenderness to palpation, normoactive to hyperactive bowel sounds, no rebound tenderness, no organomegaly, no masses no CVA tenderness. Genitourinary: Deferred MSK/skin: Mobilizes 4 limbs. Skin is dry and warm Neurological: No motor, no sensitive deficits, normal speech. Pupils are isocoric and reactive. Psych/Mental Status: A/Ox3 laboratory and microbiology Laboratory Tests 03/15/25 07:06 Test 03/15/25 07:06 Range/Units Serum Glucose 117 H 74-106 mg/dL Microbiology Date/Time Source Procedure Growth Status 03/12/25 15:10 Stool Stool Culture - Preliminary Resulted 03/12/25 15:10 Stool Shiga Toxin I & II - Final Resulted 03/06/25 07:03 Blood Blood Culture - Final NO GROWTH AFTER 5 DAYS OF INCUBATION. Complete 03/05/25 17:20 Voided Urine Urine Culture - Final Complete Labs and/or images reviewed: Labs reviewed by me, Image(s) reviewed by me Problem List/Assessment/Plan Problem List/Assessment/Plan NEURO: Acute toxic/metabolic encephalopathy due to opioid overdose? 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 EKG shows nonspecific ST changes, no STEMI Echocardiogram lvef 65%, left atrium enlarged GASTROINTESTINAL: Acute interstitial pancreatitis Rule out ischemic colitis Sepsis secondary to Colitis likely etiology infectious Lactated ringer 75 cc Full liquid diet IV ceftriaxone and metronidazole GI consultation recommended a small bowel series with Gastrografin-stool studies pending - SMALL BOWEL SERIES-W GASTROGRA Normal small bowel series. 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 Correlate for postprandial type pain. Significant surrounding edema pancreas compatible with interstitial edematous pancreatitis. 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 No definitive CT evidence of colonic ischemia however correlate with lactate levels consider short-term imaging follow-up and maintain elevated concern given the appearance of near-complete occlusion of the superior mesenteric artery. IR and vascular consulted GENITOURINARY: Likely left Renal artery stenosis DALE likely contrast induced/NSAIDs Complicated Cystitis Bilateral renal calculi Creatinine trending down, GFR improving IV fluids METABOLIC: Uncontrolled Diabetes mellitus type 2-HGB A1c 12 Lantus 20 mg HS daily Moderate ISS INFECTIOUS DISEASE: Sepsis secondary to infectious colitis Blood culture negative, urine culture [id number] Gram-positive [place] DIET: Full liquids DVT prophylax: Lovenox 40 mg sc daily GI prophylaxis: Protonix twice daily Bowel regimen: None Code status: Full code- time spent 19 mins LINES/DRAINS/ACCESS: IV access: Discontinued Right CBC IJ 03/06 till 03/12 Last bowel movement: 03/13 DISPOSITION: med/surg Patient's status discussed with patient's daughter at bedside which all questions have been answered Goals care discussed with patient, patient's daughter full code status Case discussed with Dr. Guan Plan discussed with: Patient My Orders My Orders Orders - GABE GARRETT RESIDENT Procedure Category Date Status Time Lisinopril Tablet PHA 03/15/25 In Process (Zestril Tablet) 10:00 Atorvastatin (Lipitor) PHA 03/14/25 In Process 22:00 Renin Activity And LAB 03/14/25 In Process Aldosterone 18:58 Dietary Evaluation Review Comments: Nutrition Recommendation: 1) Advance to [facility] 45gm + cardiac diet 2) Refer [employer] for diabetes education Expected Outcomes/Goals: To meet >75% estimated needs Fu 2-3 days Date of Service: Mar 15, 2025 Billing Provider: MONIQUE GUAN MD Common Visit Codes: [id number] INP/OBS CARE(HIGH) Secondary Visit Codes: [id number] CARE PLAN 30 MINUTES GABE GARRETT Mar 15, 2025 18:00 MONIQUE GUAN MD Mar 17, 2025 11:56
[2025-03-16] VITALS (7 sets, daily range): BP systolic 128–173; BP diastolic 53–88; PULSE 74–98; RESP 16–18; TEMP 36.5; O2SAT 18–99
[2025-03-16 06:59] LABS: Anion Gap 9 (5-15); Carbon Dioxide 25 mmol/L (20-31); Potassium 3.6 mmol/L (3.5-5.1); Sodium 141 mmol/L (136-145)
[2025-03-16 07:01] LABS: Calcium 8.6 mg/dL (8.7-10.4); Chloride 107 mmol/L (98-107)
[2025-03-16 07:05] LABS: Glucose 93 mg/dL (74-106)
[2025-03-16 07:06] LABS: BUN/Creatinine Ratio 6.7 (10.0-20.0); Blood Urea Nitrogen < 5 mg/dL (9-23); Magnesium 1.8 mg/dL (1.6-2.6)
[2025-03-16 07:10] LABS: Hematocrit 36.8 % (36.0-46.0); Hemoglobin 12.9 g/dL (12.2-16.2); Mean Corpuscular Hemoglobin 31.9 pg (28.0-32.0); Mean Corpuscular Volume 91.0 fL (80.0-100.0); Nucleated Red Blood Cells % 0.0 %
--- NOTE | 2025-03-16 10:03 | DVHPN2 ---
Progress Note Date Seen: Mar 16, 2025 Resident Creating Document: CARMEN PETERSEN RESIDENT Has the PT tested + for MRSA If YES, has PT been informed?: No Medical Necessity Reason Pt with a Central, PICC or Fol: No Subjective Review of Systems Patient seen and examined at bedside Still notes some abdominal pain Denies any nausea or vomiting Tolerating clear liquid diet without any exacerbation of pain Objective vital signs Vital Sign Date Time Temp Pulse Resp B/P (MAP) Pulse Ox O2 Delivery O2 Flow Rate FiO2 03/16/25 09:46 151/74 03/16/25 09:44 75 03/16/25 09:00 97.7 18 99 97.7 03/15/25 20:00 Room Air* 0 21 Total Intake and Output 03/15/25 03/15/25 03/16/25 15:00 23:00 07:00 Intake Total 466 ml Balance 466 ml medications Current Medications Medications Dose Ordered Sig/Maco Route Start Time Stop Time Status Last Admin Dose Admin Nystatin 1 applic BID TOP 03/06/25 10:00 03/16/25 09:57 1 APPLIC Lidocaine 1 patch DAILY TOP 03/06/25 10:00 03/16/25 09:46 1 PATCH Aspirin 81 mg DAILY PO 03/06/25 10:00 03/16/25 09:44 81 MG Enoxaparin Sodium 40 mg DAILY SC 03/07/25 10:00 03/16/25 09:46 40 MG Ticagrelor 90 mg BID PO 03/06/25 22:00 Hold 03/15/25 10:01 90 MG Nicardipine HCl 250 ml @ 50 mls/hr Q5H IV 03/06/25 15:15 Cancel Pantoprazole Sodium 40 mg BID IV 03/06/25 15:30 03/16/25 09:46 40 MG Amlodipine Besylate 10 mg DAILY PO 03/08/25 10:00 03/16/25 09:46 10 MG Insulin Glargine 20 units HS SC 03/07/25 22:00 03/15/25 21:42 20 UNITS Carvedilol 12.5 mg Q12HR PO 03/07/25 22:00 03/16/25 09:44 12.5 MG Acetaminophen 650 mg Q4HP PRN PO 03/07/25 19:30 03/11/25 01:26 650 MG Acetaminophen/ Hydrocodone Bitart 1 tab Q4HPRN PRN PO 03/09/25 20:45 03/16/25 05:45 1 TAB Diagnostic Test (Pha) 1 strip ACHS 03/12/25 17:00 03/16/25 05:46 1 STRIP Insulin Human Regular HS SC 03/12/25 22:00 03/15/25 21:42 4 UNITS Insulin Human Regular AC SC 03/12/25 17:00 03/15/25 11:40 6 UNITS Dextrose 50 ml UD PRN IV 03/12/25 16:45 Sucralfate 1 gm BID@0600,2200 PO 03/14/25 22:00 03/16/25 05:37 1 GM Lisinopril 10 mg DAILY PO 03/15/25 10:00 03/16/25 09:45 10 MG Atorvastatin Calcium 40 mg HS PO 03/14/25 22:00 03/15/25 21:08 40 MG Examination Obese female patient lying in the bed, patient is hungry, well conversational General: Overweight, afebrile, palor, mucosae are moist Cardiovascular: Tachycardia but Regular S1 and S2. No murmurs, gallops or rubs. No JVD elevation. 1+ pitting pedal edema bilaterally Respiratory: Normal B/L air entry on room air. Clear lung sounds on auscultation Abdomen: Right lower quadrant and epigastric tenderness to palpation, normoactive to hyperactive bowel sounds, no rebound tenderness, no organomegaly, no masses no CVA tenderness. Genitourinary: Deferred MSK/skin: Mobilizes 4 limbs. Skin is dry and warm Neurological: No motor, no sensitive deficits, normal speech. Pupils are isocoric and reactive. Psych/Mental Status: A/Ox3 laboratory and microbiology Laboratory Tests 03/16/25 06:24 Test 03/16/25 06:24 Range/Units Serum Glucose 93 74-106 mg/dL Microbiology Date/Time Source Procedure Growth Status 03/12/25 15:10 Stool Stool Culture - Final Complete 03/12/25 15:10 Stool Shiga Toxin I & II - Final Complete 03/06/25 07:03 Blood Blood Culture - Final NO GROWTH AFTER 5 DAYS OF INCUBATION. 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 Thank you so much for the opportunity to consult on your patient. GI team will follow the patient. In case of any questions or concerns please feel free to reach out. Plan discussed with Dr. Weiss Plan discussed with: Patient, Other (Sister, RN) Dietary Evaluation Review Comments: Nutrition Recommendation: 1) Advance to [facility] 45gm + cardiac diet 2) Refer [employer] for diabetes education Expected Outcomes/Goals: To meet >75% estimated needs Fu 2-3 days CARMEN PETERSEN RESIDENT Mar 16, 2025 10:03
[2025-03-16] MEDS ORDERED: ATOR40TA52 PO (10:13)
[2025-03-16] MEDS ORDERED: CARV-216 PO (10:13)
[2025-03-16] MEDS ORDERED: DICY10CA PO (10:13)
[2025-03-16] MEDS ORDERED: EZET-10 PO (10:13)
[2025-03-16] MEDS ORDERED: LISI-275 PO (10:13)
[2025-03-16] MEDS ORDERED: AML5T PO (10:13)
[2025-03-16] MEDS ORDERED: POTASSIUM EFFERVESENT TAB 25 MEQ PO ONE (10:15)
[2025-03-16] MEDS ORDERED: MAGNESIUM OXIDE 400 MG TAB PO ONE (10:15)
--- NOTE | 2025-03-16 15:32 | DVHDSRES ---
Discharge Summary Date of Admission Resident Creating Document: GABE GARRETT RESIDENT Mar 05, 2025 at 22:24 Date of Discharge: Mar 16, 2025 Labs/Diagnostic Data: Laboratory Results Test 03/16/25 06:24 03/16/25 05:46 03/15/25 14:42 03/15/25 07:06 White Blood Count 9.1 10^3/uL (4.4-10.8) Red Blood Count 4.04 10^6/uL (4.0-5.20) Hemoglobin 12.9 g/dL (12.2-16.2) Hematocrit 36.8 % (36.0-46.0) Mean Corpuscular Volume 91.0 fL (80.0-100.0) Mean Corpuscular Hemoglobin 31.9 pg (28.0-32.0) Mean Corpuscular Hemoglobin Concent 35.0 g/dL (32.0-36.0) Red Cell Distribution Width 13.3 % (11.8-14.3) Platelet Count 378 10^3/uL (140-450) Mean Platelet Volume 7.7 fL (6.9-10.8) Neutrophils (%) (Auto) 69.1 % (37.0-80.0) Lymphocytes (%) (Auto) 18.9 % (10.0-50.0) Monocytes (%) (Auto) 8.5 % (0.0-12.0) Eosinophils (%) (Auto) 3.1 % (0.0-7.0) Basophils (%) (Auto) 0.4 % (0.0-2.0) Neutrophils # (Auto) 6.3 10 ^3/uL (1.6-8.6) Lymphocytes # (Auto) 1.7 10 ^3/uL (0.4-5.4) Monocytes # (Auto) 0.8 10 ^3/uL (0-1.3) Eosinophils # (Auto) 0.3 10 ^3/uL (0-0.8) Basophils # (Auto) 0 10 ^3/uL (0-0.2) Nucleated Red Blood Cells 0.0 % Sodium Level 141 mmol/L (136-145) Potassium Level 3.6 mmol/L (3.5-5.1) Chloride Level 107 mmol/L (98-107) Carbon Dioxide Level 25 mmol/L (20-31) Anion Gap 9 (5-15) Blood Urea Nitrogen < 5 mg/dL (9-23) Creatinine 0.75 mg/dL (0.550-1.02) Glomerular Filtration Rate Calc 88 mL/min (>90) BUN/Creatinine Ratio 6.7 (10.0-20.0) Serum Glucose 93 mg/dL (74-106) Calcium Level 8.6 mg/dL (8.7-10.4) Magnesium Level 1.8 mg/dL (1.6-2.6) POC Glucose 83 mg/dl (70-106) Lactic Acid Level 1.3 mmol/L (0.4-2.0) Total Bilirubin 0.2 mg/dL (0.2-1.0) Aspartate Amino Transferase (AST) 22 U/L (13-40) Alanine Aminotransferase (ALT) 9 U/L (7-40) Alkaline Phosphatase 97 U/L (46-116) Total Protein 5.7 g/dL (5.7-8.2) Albumin 3.2 g/dL (3.2-4.8) Lipase 51 U/L (12-53) Cortisol AM Sample 7.14 ug/dL (5.27-22.45) Test 03/14/25 19:58 03/09/25 23:10 03/08/25 04:52 03/07/25 13:57 Urine Color Yellow (Yellow) Urine Clarity Turbid (Clear) Urine pH 6.0 (5.0-9.0) Urine Specific Ragland 1.012 (1.001-1.035) Urine Protein Negative (Negative) Urine Ketones Trace (Negative) Urine Blood 1+ /uL (Negative) Urine Nitrite Negative (Negative) Urine Bilirubin 1+ (Negative) Urine Urobilinogen Normal mg/dL (Negative) Urine Leukocyte Esterase Trace /uL (Negative) Urine RBC 41 /hpf (0 - 4) Urine Microscopic WBC 1 /HPF (0-5) Urine Squamous Epithelial Cells Few /hpf (<5) Urine Amorphous Crystals Few /hpf (None Seen) Urine Bacteria Few /hpf (None Seen) Urine Mucus Few (None Seen) Urine Yeast (Budding) Moderate /hpf (None Seen) Urine Glucose 4+ mg/dL (Normal) Stool Occult Blood Negative (Negative) Stool Occult Blood Sample #3 (Negative) Stool for White Cells None seen Troponin I High Sensitivity 76 ng/L (</=34) Influenza Type A Antigen Negative (Negative) Influenza Type B Antigen Negative (Negative) Test 03/07/25 05:48 03/07/25 00:00 03/06/25 16:44 03/06/25 15:53 Prothrombin Time 11.4 sec (9.3-11.8) Prothrombin Time INR 1.08 (0.9-1.15) Activated Partial Thromboplast Time 29.5 SEC (24.5-34.5) Phosphorus Level 2.4 mg/dL (2.4-5.1) Triglycerides Level 333 mg/dL (< 150) Cholesterol Level 199 mg/dL (< 200) LDL Cholesterol 138 mg/dL (< 100) HDL Cholesterol 26 mg/dL (40-59) Thyroid Stimulating Hormone (TSH) 0.34 uIU/mL (0.55-4.78) Free Thyroxine (T4) Calculated 1.33 ng/dL (0.89-1.76) Total Triiodothyronine (TT3) 1.04 ng/mL (0.60-1.81) SARS-CoV-2 Antigen (Rapid) Negative (NEGATIVE) Blood Gas Specimen Type Arterial Blood Gas Sample Site Right radial Blood Gas Patient Temperature 37.0 Arterial Blood Date Drawn [id number] Arterial Blood pH 7.440 (7.350-7.450) Arterial Blood Partial Pressure CO2 29.4 mmHg (32.0-45.0) Arterial Blood Partial Pressure O2 84.5 mmHg (83.0-108.0) Arterial Blood HCO3 19.5 mmol/L (21.0-28.0) Arterial Blood Oxygen Saturation 96.5 % (94.0-98.0) Arterial Blood Base Excess -3.2 mmol/L (-2.0-3.0) Arterial Blood Oxyhemoglobin 95.0 % (94.0-98.0) Arterial Blood Carboxyhemoglobin 0.8 % (0.5-1.5) Arterial Blood Methemoglobin 0.8 % (0.0-1.5) Femi Test Yes Blood Gas Total Hemoglobin 15.70 g/dL (12.0-16.0) Blood Gas Modality Room air FiO2 % 21.0 Serum Osmolality 306 mOsm/kg (278-298) Test 03/05/25 17:12 Hemoglobin A1c 12.0 % A1C (<5.7) Other Laboratory Tests 03/16/25 06:24 Brief Hx & Hospital Course: Patient 64-year-old female with hypertension, type 2 diabetes mellitus on insulin Basaglar 38 units, CAD status post stent 1 year back, multiple CVAs who presented to the ER with a chief complaint of abdominal pain for the past 2 months, associated with bloating, the pain has been therefore 2 months as sharp, not related to exertion, not related to food or fasting, she has been experiencing vomiting for the past night but otherwise denies diarrhea or constipation. No fever or chills. He abdomen showed colitis, repeat CT with IV contrast showed bilateral kidney stones, interstitial pancreatitis, high-grade renal artery stenosis. CT head showed old small frontal lobe infarct, age indeterminate left cerebellar infarct. Patient A1c was 12. WBC count has been increasing to 18 from 10 on arrival. Patient had good appetite but severe abdominal pain. Not passing gas. Last bowel movement was 03/05. During the hospitalization, initial CT abdomen showed colitis, patient was started on IV antibiotics, IV fluids, patient was hypotensive, with a DALE, nicardipine drip was started. Repeat CT abdomen with IV contrast showed interstitial pancreatitis, lipase increased to 900, patient was kept NPO, liquid diet was started, patient had persistent pain home out of proportion to examination, patient was not passing gas and a KUB and a small bowel series was completed following which patient started passing bowel movements. 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 Correlate for postprandial type pain. Significant surrounding edema pancreas compatible with interstitial edematous pancreatitis. 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 No definitive CT evidence of colonic ischemia however correlate with lactate levels consider short-term imaging follow-up and maintain elevated concern given the appearance of near- complete occlusion of the superior mesenteric artery. Interventional Radiology, Vascular surgeon was consulted who recommended GI evaluation with upper and lower endoscopy, GI consultation-recommended colonoscopy and endoscopy in the outpatient setting given acute pancreatitis and outpatient follow up. Renal duplex completed which showed left-sided renal artery stenosis. Patient was transition from nicardipine drip to amlodipine, Coreg and lisinopril. Which controlled the blood pressure adequately. Echocardiogram showed LVEF 65%, left atrium enlarged. Patient tolerated full liquid diet well. DALE resolved. Patient was kept on Lantus and moderate ISS during the hospital stay. Blood Cultures were negative, [place] culture [place] 85024 Gram-positive [place]. 03/16-patient is hemodynamically stable, is requesting to go home therefore she was discharged home with the strong recommendation to follow up with GI as outpatient for endoscopy and colonoscopy, follow up with primary care physician as soon as possible, and elective vascular surgical consultation as outpatient. Imaging records were handed to the patient, and discharge medication including amlodipine, Coreg, lisinopril, atorvastatin and azithromycin were explained in detail, with side effects, patient agreed with the discharge plan. Patient to continue home medication aspirin and Plavix at home. Consults/Reason for consult Vascular surgeon Interventional radiology Gastroenterology Operations or Procedures ORDERING PHYSICIAN: GABE GARRETT PROCEDURE(s): ECIDC - ECHO 2D MODE CARDIAC DOP REASON: Elevated tropes, hypertensive emergency ORDER NUMBER(s): [id number], ACCESSION NUMBER(s): [id number] APPROVED REPORT ORDERING PHYSICIAN: GABE GARRETT PROCEDURE(s): ANGAR - ANGIO ABDOMINAL WITH RUN REASON: rule out colon ischemia ORDER NUMBER(s): [id number], ACCESSION NUMBER(s): [id number] EXAM: CT ANGIO ABDOMINAL WITH RUN, CT of the chest INDICATION: Rule out: Ischemia TECHNIQUE: CT angiogram of the chest, abdomen, pelvis was performed following uncomplicated administration of intravenous contrast. Sagittal and coronal reformatted images as well as maximum intensity projection images and 3D volume renderings were generated and evaluated. Coronal and sagittal reformations and maximum intensity projection images were created from the transaxial source data by the surgical scrub technologist and workstation, as well as 3-D volume rendered images. COMPARISON: None available. 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 Scattered mixed atherosclerotic plaque. No aneurysmal dilation. [KECIA]: Patent [RENALS]: Patent [ILIACS]: Patent [FEMORALS]: Patent [PULMONARY ARTERIES]: No pulmonary arterial filling defect. Normal caliber of the main pulmonary artery. No evidence of elevated right heart pressures. [CARDIOVASCULAR]: Normal cardiac size. No pericardial effusion. No aneurysmal dilatation of the great vessels. Coronary artery calcifications. NON-VASCULAR FINDINGS: [LOWER NECK]: Unremarkable [LYMPH NODES/MEDIASTINUM]: No abnormal lymph nodes by CT size criteria [LUNG PARENCHYMA/PLEURAL SPACE]: Small bilateral pleural effusions with atelectasis in bilateral bases. No consolidation. [CHEST WALL]: Unremarkable. [LIVER]: Normal hepatic size without suspicious focal lesion. [SPLEEN]: Normal [PANCREAS]: Significant surrounding edema pancreas compatible with interstitial edematous pancreatitis. [GALLBLADDER AND BILIARY TREE]: Trace possible layering biliary sludge. No biliary dilatation. [ADRENAL GLANDS]: Unremarkable [KIDNEYS]: No hydronephrosis. 8 mm nonobstructive left inferior renal caliceal stone. [BLADDER]: Unremarkable for the degree distention. [PELVIC ORGANS]: Unremarkable. [BOWEL/MESENTERY]: Mild possible submucosal edema along the stomach correlate for gastritis. Air-fluid levels colon without abnormal dilation no pneumatosis intestinalis [ASCITES]: Small volume ascites [LYMPHADENOPATHY]: No pathologically enlarged lymph nodes by CT size criteria [ABDOMINAL WALL]: [id number] diffuse body [MUSCULOSKELETAL]: No acute fracture or aggressive focal osseous lesion. Multifocal degenerative change of the visualized spine. IMPRESSION: 1. 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 Correlate for postprandial type pain. 2. Significant surrounding edema pancreas compatible with interstitial edematous pancreatitis. 3. 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 4. No definitive CT evidence of colonic ischemia however correlate with lactate levels consider short-term imaging follow-up and maintain elevated concern given the appearance of near-complete occlusion of the superior mesenteric artery. ATED BY: MARTINE DIAZ MD DICTATED DATE/TIME: 03/13/252128 SIGNED BY: MARTINE DIAZ MD SIGNED DATE/TIME: 03/13/252128 CC: EXAM: Two-dimensional and M-mode echocardiogram with Doppler and color Doppler. Blood Pressure: 134/72 mmHg INDICATION Elevated tropes, hypertensive emergency RISK FACTORS Height: 60, Weight: 151 DIMENSIONS LVDd (3.8-5.7cm) LA (2D) 3.9 (1.9-4.0cm) Aortic Root 3.1 (2.0- 3.7cm) LVDs (2.5-4.0cm) LA (MM) (1.9-4.0cm) Aortic Cusp Exc 1.7 (1.5- 2.0cm) EF (%) 66.0 (55-70%) Rt. Atrium 3.9 (1.9-4.0cm) Asc. Aorta cm Mitral Valve Mitral Mitral Stenosis E wave 0.89m/s MV Mean GR. mmHg A wave 1.01m/s MV Peak GR. 46mmHg E/A ratio 0.9 2D MVA cm2 DECEL Time 216ms PRESS 1/2 Time 45ms IVRT ms Dop MVA 4.89cm2 Aortic Valve Aortic Valve Aortic Stenosis V1 0.92m/s AO Mean GR. 3mmHg V2 1.20m/s AO Peak GR. 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 left cerebellar infarct Ruled out acute stroke CAD status post 1 MAMADOU 1 year back Uncontrolled hypertension NSTEMI likely type 2 Sinus tachycardia Hypertriglyceridemia Dyslipidemia Obesity Discharge Disposition: Home Discharge Instruct/Medications Diet: See Comment Diet comment: low fat diet Activity: Light activity Follow Up/Referral: follow up with primary car physician in 7 days follow up with residential recycle driver in 7 days for outpt colonoscopy and endoscopy Medications: Amlodipine lisinopril coreg aspirin plavix atorvastatin ezetemide Scheduled Amlodipine Besylate (Norvasc Tablet), 10 MG PO DAILY Aspirin (Aspirin Low Dose), 1 TAB PO DAILY, (Reported) Atorvastatin Calcium (Atorvastatin Calcium), 80 MG PO DAILY Carvedilol (Coreg), 12.5 MG PO Q12HR Ezetimibe (Ezetimibe), 10 MG PO HS Lisinopril (Lisinopril), 10 MG PO DAILY Ticagrelor Base (Brilinta), 1 TAB PO BID, (Reported) Scheduled PRN Dicyclomine Hcl (Bentyl Capsule), 1 CAP PO TID PRN Discharge Statement: "Patient was advised to return to the ER or call 911 if any headaches, dizziness, shortness of breath, chest pain, abdominal pain, bleeding, fevers, or worsening of medical condition. Patient was counseled about treatment plan, medications, possible side effects, patientverbalized understanding. All questions were answered to the best of my ability. This discharge took greater then 30 minutes in planning, reviewing documentation, counseling the patient, and discussing with other team members." ASSESSMENT ASSESSMENT Assessment Mesenteric ischemia Hypertensive emergency GABE GARRETT RESIDENT Mar 16, 2025 15:32
== END 2025-03-16 13:13 | disposition home or self-care (01) | DRG 720 ==
LOC: ER 16:36 → OVERFLOW 22:24 → TELE-WESTW 03-07 21:25 → WEST WING 03-13 17:44
PROVIDERS: ADMIT Internal Medicine Pulmonary Disease; ATTEND Internal Medicine
PROC: 02H633Z Insertion of Infusion Device into Right Atrium, Percutaneous Approach (ICD-10-PCS; principal; 2025-03-06)
DX: A41.9 Sepsis, unspecified organism (principal); G92.8 Other toxic encephalopathy; K55.039 Acute (reversible) ischemia of large intestine, extent unspecified; I16.1 Hypertensive emergency; K85.80 Other acute pancreatitis without necrosis or infection; E87.20 Acidosis, unspecified; I77.4 Celiac artery compression syndrome; I21.A1 Myocardial infarction type 2; F19.10 Other psychoactive substance abuse, uncomplicated; E66.9 Obesity, unspecified; I70.1 Atherosclerosis of renal artery; E11.65 Type 2 diabetes mellitus with hyperglycemia; Z20.822 Contact with and (suspected) exposure to COVID-19; N20.0 Calculus of kidney; N17.9 Acute kidney failure, unspecified; N30.90 Cystitis, unspecified without hematuria; E78.1 Pure hyperglyceridemia; A09 Infectious gastroenteritis and colitis, unspecified; I25.10 Atherosclerotic heart disease of native coronary artery without angina pectoris; I10 Essential (primary) hypertension; B37.9 Candidiasis, unspecified; E07.81 Sick-euthyroid syndrome; E78.5 Hyperlipidemia, unspecified; T40.2X1A Poisoning by other opioids, accidental (unintentional), initial encounter; Z68.26 Body mass index [BMI] 26.0-26.9, adult; Z88.5 Allergy status to narcotic agent; Z90.710 Acquired absence of both cervix and uterus; Z87.891 Personal history of nicotine dependence; Z86.73 Personal history of transient ischemic attack (TIA), and cerebral infarction without residual deficits; Z85.828 Personal history of other malignant neoplasm of skin; Z98.61 Coronary angioplasty status; Z90.49 Acquired absence of other specified parts of digestive tract; Y92.89 Other specified places as the place of occurrence of the external cause
CPT/HCPCS: 36415; 36556; 36600; 70450; 71045; 74018; 74176; 74178; 74250; 75635; 76705; 80048; 80053; 80061; 81001; 82088; 82270; 82533; 82805; 82962; 83036; 83605; 83690; 83735; 83930; 84100; 84244; 84439; 84443; 84480; 84484; 85025; 85048; 85610; 85730; 86850; 86900; 86901; 87040; 87045; 87086; 87177; 87426; 87804; 93005; 93306; 93886; 93976; 96365; 96375; 99291; G0378; J1815; J1885; J2405; J2470; J2543; J3480; J3490